=== PATIENT | female | born 1990 | race Caucasian/White ===

== ENCOUNTER 2018-04-16 08:45 | Outpatient (CLI) | payer OTHER, SELFPAY ==
[2018-04-16 09:02] LABS: HCT 29.9 % (36.0-46.0); HGB 9.6 g/dL (12.0-15.5); Mean Corp. HGB Concentration 32.1 g/dL (32.0-36.0); Mean Corpuscular Hemoglobin 27.8 pg (27.0-33.0); Mean Corpuscular Volume 86.7 fL (80-95); Platelet Count 240 x1000/uL (130-400); RBC 3.45 m/cumm (4.00-5.20); RBC Distribution Width 12.8 % (11.7-14.6); White Blood Cell Count 8.83 k/cumm (4.4-10.8)
[2018-04-16 09:09] LABS: Glucose,1 Hr (Glucola) 106 mg/dL (80-140)
== END 2018-04-16 08:46 ==
PROVIDERS: PCP Physician Assistant; Visit Provider Advanced Practice Midwife
DX: Z34.92 Encounter for supervision of normal pregnancy, unspecified, second trimester (principal); Z3A.28 28 weeks gestation of pregnancy
CPT/HCPCS: 36415; 82950; 85027

== ENCOUNTER 2018-06-03 09:41 | Observation (INO) | payer OTHER, SELFPAY ==
[2018-06-03 10:13] LABS: HCT 29.3 % (36.0-46.0); HGB 9.4 g/dL (12.0-15.5); Mean Corp. HGB Concentration 32.1 g/dL (32.0-36.0); Mean Corpuscular Hemoglobin 26.9 pg (27.0-33.0); Mean Corpuscular Volume 83.7 fL (80-95); Mean Platelet Volume 9.8 fL (8.0-11.0); Platelet Count 217 x1000/uL (130-400); RBC Distribution Width 15.2 % (11.7-14.6); White Blood Cell Count 9.48 k/cumm (4.4-10.8)
[2018-06-03 10:18] LABS: Anion Gap 9.1 mmol/L (3-11); CO2 23.9 mmol/L (21.0-32.0); Chloride 105 mmol/L (98-107); Potassium 3.5 mmol/L (3.5-5.1); Sodium 138 mmol/L (136-145)
[2018-06-03 10:20] LABS: Glucose 71 mg/dL (70-100)
== END 2018-06-03 12:30 | disposition home or self-care (01) ==
PROVIDERS: Admitting Provider Advanced Practice Midwife; PCP Physician Assistant; Visit Provider Advanced Practice Midwife
DX: O26.893 Other specified pregnancy related conditions, third trimester (principal); R42 Dizziness and giddiness; O99.013 Anemia complicating pregnancy, third trimester; D64.9 Anemia, unspecified; Z3A.35 35 weeks gestation of pregnancy
CPT/HCPCS: 59025; 36415; 80051; 82947; 85027; G0378

== ENCOUNTER 2018-06-10 12:36 | Outpatient (REF) | payer OTHER, SELFPAY | END 2018-06-10 12:56 | LOC: LBN 12:36 | PROVIDERS: PCP Physician Assistant; Visit Provider Advanced Practice Midwife | DX: Z34.93 Encounter for supervision of normal pregnancy, unspecified, third trimester (principal); Z36.85 Encounter for antenatal screening for Streptococcus B | CPT/HCPCS: 87081 ==

== ENCOUNTER 2018-06-17 01:20 | Outpatient (CLI) | payer OTHER, SELFPAY ==
[2018-06-17 08:25] LABS: HCT 31.6 % (36.0-46.0)
== END 2018-06-17 01:40 ==
PROVIDERS: PCP Physician Assistant; Visit Provider Advanced Practice Midwife
DX: O99.013 Anemia complicating pregnancy, third trimester (principal)
CPT/HCPCS: 36415; 85014; 85018

== ENCOUNTER 2018-06-22 01:20 | Outpatient (CLI) | payer OTHER, SELFPAY ==
--- NOTE | 2018-06-22 08:42 | DI.US_ITS ---
Many abnormalities cannot be diagnosed. A normal exam does not exclude a congenital anomaly. Radiology No. LMP: Exam Date: 06/22/18 [facility] wks days on EDC ([facility]) 07/08/18 Confirmed: HISTORY: Z34.90, TESS, WT, CHECK GROWTH ---- PREDICTED GESTATIONAL AGE NUMBER 37.3 weeks with a range of 36.3 week to 38.3 weeks. 1 Determined by__[id number]___LMP___HISTORY Info. pertaining to fetus # PLACENTA PRESENTATION Grade II Cephalic_X__ Anterior__X_Posterior___ Breech____ Right Left Transverse(head right___ Fundal___Low-lying___Previa___ Transverse(head left___ Varying BIOMETRY AMNIOTIC FLUID BPD: 97 mm 39.4 weeks HC: 350 mm 40.4 weeks MILD Polyhydramnios AC: 341 mm 38 weeks FL: 74 mm 37.5 weeks AMNIOTIC FLUID INDEX >26 WK CRL: mm weeks Cisterna Magna: mm CI: 0.82 RUQ:__8.53____LUQ____5.71____ Cerebellum: cm EFW: 3491 grams 78th Percentile RLQ:__7.33____LLQ___5.32____ Total:___26.9 cms Composite AGE= 39 wks EDC by US___06/29/18 BIOPHYSICAL PROFILE ANATOMY IDENTIFIED SCORE 0/2 Heart: 4-Chamber__X_Rate:BPM__144___ LVOT: RVOT: Amniotic Fluid(>2cms)____ Stomach:___X____ Kidneys: Respirations (>30 secs) Bladder: X___ Post. Fossa: Body Flex/Extension 3 vessel cord:__X Ventricles: cord insertion: Lips:____ Extremity Flex/Extension spinal morphology: Nose: Total Score= Palate: NS=not seen OB ultrasound was performed utilizing limited third trimester protocol. A single intrauterine gestation again noted, biometry is consistent with a gestational age of 39 weeks with EDC of 06/29/18. Estimated weight is 3491 grams which is at the 78th percentile for predicted gestational age. Placenta is anterior with no placenta previa. Fetus is in cephalic presentation. There is visually mild polyhydramnios with an TESS of 26.9. cardiac activity is observed at a rate of 144 BPM.
== END 2018-06-22 01:40 ==
PROVIDERS: PCP Physician Assistant; Visit Provider Advanced Practice Midwife
DX: Z34.93 Encounter for supervision of normal pregnancy, unspecified, third trimester (principal); Z36.89 Encounter for other specified antenatal screening
CPT/HCPCS: 76816

== ENCOUNTER 2018-07-19 16:45 | Inpatient (IN) | payer OTHER, SELFPAY ==
[2018-07-19 17:32] LABS: HCT 33.2 % (36.0-46.0); HGB 10.9 g/dL (12.0-15.5); Mean Corp. HGB Concentration 32.8 g/dL (32.0-36.0); Mean Corpuscular Hemoglobin 27.6 pg (27.0-33.0); Mean Corpuscular Volume 84.1 fL (80-95); Mean Platelet Volume 10.6 fL (8.0-11.0); Platelet Count 232 x1000/uL (130-400); RBC 3.95 m/cumm (4.00-5.20); RBC Distribution Width 18.9 % (11.7-14.6); White Blood Cell Count 11.05 k/cumm (4.4-10.8)
[2018-07-19] MEDS: Zolpidem 5 MG TAB 10 MG PO (22:01)
[2018-07-20] MEDS: Normal Saline Flush 10 ML SYR IVP (06:44)
[2018-07-20] MEDS: Lactated Ringers 1,000 ML 125 ML IV ×2 (06:46→15:14)
[2018-07-20] MEDS: Hamamelis Leaf/Glycerin 100 EACH BOX PR (23:28)
[2018-07-21] MEDS: Ibuprofen 600 MG TAB PO ×4 (01:05→22:41)
[2018-07-21] MEDS: Acetaminophen 325 MG TAB 650 MG PO ×4 (03:43→22:41)
[2018-07-21] MEDS: Normal Saline Flush 10 ML SYR IVP (04:14)
[2018-07-21 07:15] LABS: HCT 24.7 % (36.0-46.0); HGB 7.9 g/dL (12.0-15.5); Mean Corpuscular Hemoglobin 27.3 pg (27.0-33.0); Mean Corpuscular Volume 85.5 fL (80-95); Mean Platelet Volume 10.5 fL (8.0-11.0); Platelet Count 190 x1000/uL (130-400); RBC 2.89 m/cumm (4.00-5.20); RBC Distribution Width 18.7 % (11.7-14.6); White Blood Cell Count 15.05 k/cumm (4.4-10.8)
[2018-07-21] MEDS: Ferrous Sulfate 325 MG TAB PO ×2 (10:36→20:25)
[2018-07-21] MEDS: Docusate Sodium 100 MG CAP PO (20:25)
[2018-07-22] MEDS: Acetaminophen 325 MG TAB 650 MG PO (08:10)
[2018-07-22] MEDS: Ferrous Sulfate 325 MG TAB PO (08:10)
[2018-07-22] MEDS: Ibuprofen 600 MG TAB PO (08:10)
[2018-07-22] MEDS: Hamamelis Leaf/Glycerin 100 EACH BOX PR (08:59)
== END 2018-07-22 11:50 | disposition home or self-care (01) | DRG 807 ==
PROVIDERS: Admitting Provider Nurse Practitioner; PCP Physician Assistant; Visit Provider Advanced Practice Midwife
DX: O48.0 Post-term pregnancy (principal); Z37.0 Single live birth; Z3A.41 41 weeks gestation of pregnancy; O70.1 Second degree perineal laceration during delivery; O66.0 Obstructed labor due to shoulder dystocia; O90.81 Anemia of the puerperium; D64.9 Anemia, unspecified; O99.344 Other mental disorders complicating childbirth; F41.8 Other specified anxiety disorders
CPT/HCPCS: 36415; 85027; 86850; 86900; 86901; 59025; J3490

== ENCOUNTER 2018-08-22 15:58 | Emergency (ER) | payer OTHER, SELFPAY ==
[2018-08-22 16:03] VITALS: BP 119/71; PULSE 81; RESP 18; TEMP 37.3; O2SAT 98
--- NOTE | 2018-08-22 16:42 | ED.GENADUL_ITS ---
Discharge Plan Disposition Patient Disposition: HOME Condition: Good Discharge Details Chief Complaint: Cellulitis Clinical Impression: Mastitis Primary Care Provider: David Contreras ED Provider: David Duncan Home Meds and New Rx's Prescriptions: New cephalexin 500 mg tablet 500 mg PO QID 10 Days Qty: 40 RF: 0 No Action PNV cmb#95-ferrous fumarate-FA [] 1 EACH tablet 1 ea PO DAILY RF: 0 hydroxyzine pamoate [Vistaril] 50 MG capsule 50 mg PO Q6H PRN PRNQty: 30 RF: 1 compression panty, 1x-2x [Post Op Panty 1X-2X] 1 EACH misc Miscellaneous DAILY Qty: 1 RF: 0 ferrous sulfate 325 MG tablet 325 mg PO BID Qty: 90 RF: 0 Discharge Instructions Instructions: Mastitis (ED) Additional Instructions: Please take the medication as directed. Please take Tylenol for pain. Please use warm compresses as often as possible for improvement of your symptoms. Please continue to breast feed and pump vigorously. If you notice any worsening of your symptoms, or any new symptoms such as vomiting, diarrhea, fever, chills, shortness of breath, chest pain, numbness, weakness, or fainting , please return immediately to the emergency department for reevaluation. Please follow up with your primary care provider as soon as possible for reassessment and reevaluation. As always, it was a pleasure participating in your medical care today. Referrals: David Contreras PA [Primary Care Provider] - Medical Decision Making This is a very pleasant 28-year-old female who presents with signs and symptoms consistent with clinical mastitis. No evidence of abscess was noted on bedside ultrasound exam. Patient's vital signs are stable with no evidence of fever, tachycardia, or other significant abnormality. We will encourage warm compresses, Tylenol for pain, as well as Keflex for antibiotic therapy. She will be given 2 doses, one to take now, and 1 to take in the morning before pharmacies open up. She will be given a prescription for home use. We discussed red flags which to return, the importance of continued pumping, the importance of close follow-up with her PCP I have extensively reviewed the treatment plan and discharge instructions with the patient. I have addressed all patient concerns at this time. The patient was made aware of what symptoms to monitor for that would warrant a return to the emergency department. Discussed the plan with the patient, they demonstrate verbal understanding and agreement with our assessment and plan at this time. HPI General Date/Time Provider Initiated Documentation: 08/22/18 16:37 . HPI Narrative: This is a pleasant 28-year-old female who presents for right-sided breast pain. She is currently breast-feeding her child, and noticed yesterday that she had mild fever, chills, redness pain and tenderness on the lateral aspect of her right breast. She has been using warm compresses and massaging it pumping frequently however the redness persisted, so she came to the ER for further evaluation. She has been taking Tylenol at home which has been resolving the fever and notably improving the pain. Patient denies any discharge from the nipple, any change in her milk color, or any other symptoms of chest pain shortness of breath numbness tingling or weakness. She has no other complaints or modifying factors at this time. Related Data Home Medications Medication Instructions Recorded Confirmed PNV cmb#95-ferrous fumarate-FA 1 ea PO DAILY 11/20/17 07/19/18 [Prenavite] hydroxyzine pamoate [Vistaril] 50 mg PO Q6H PRN PRN #30 tab-cap 01/19/18 07/19/18 compression panty, 1x-2x [Post Op #1 03/31/18 07/19/18 Panty] ferrous sulfate 325 mg PO BID #90 tab 04/16/18 08/22/18 cephalexin 500 mg PO QID 10 Days #40 tab 08/22/18 Previous Rx's Medication Instructions Recorded ferrous sulfate 325 mg PO BID #90 tab 04/16/18 cephalexin 500 mg PO QID 10 Days #40 tab 08/22/18 Allergies Allergy/AdvReac Type Severity Reaction Status Date / Time No Known Allergies Allergy Verified 08/22/18 16:07 General Stated Complaint: Cellulitis RAMY: 4 Review of Systems Review of Systems All systems reviewed & are unremarkable except as noted in HPI and below PFSH Medical History Migraine headache without aura (Chronic) Temporal mandibular joint disorder (Chronic) (normal spontaneous vaginal delivery) (Resolved) Surgical History [place] teeth extractions tmj arthroscopy Family History Maternal Aunt Multiple sclerosis Other Diabetes Heart disease Myocardial infarction Osteoporosis Personal history of malignant neoplasm Social History adopted: No foster care: No household members: spouse and children number of children: 1 current occupational status: employed 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[employer] Smoking/Tobacco Use Status: Former Tobacco Use quit date: 09/08/13 alcohol intake: never substance use type: does not use History History 2 Para 1 Hx # Term Pregnancies 1 Multiple births 0 Hx # Pregnancies 0 Ectopic pregnancies 0 AB induced 0 Hx Number of Living Children 1 AB spontaneous 0 Exam Narrative Exam Narrative: 1.Const: Well-nourished, Well-developed, appearing stated age 2.Eyes: PERRL, no conjunctival injection, and symmetrical lids. 3.ENT: Atraumatic external nose and ears. Moist MM. Neck: Symmetric, trachea midline, No thyromegaly. 4.CVS: +S1/S2, No murmurs or gallops. Peripheral pulses 2+ and equal in all extremities. Brisk capillary refill in all extremities. 5.RESP: Unlabored respiratory effort. Clear to auscultation bilaterally. No wheezes rales or rhonchi 6.GI: Soft, Nontender/Nondistended, No hepatosplenomegaly. No guarding or rebound. 7.MSK: Normocephalic/Atraumatic, Extremities w/o deformity or ttp No cyanosis or clubbing, Normal movement of all extremities 8.Skin: Physical exam was performed with female nurse Cris at bedside. Physical exam demonstrates symmetric breasts, however there is mild redness on the right breast on the lateral aspect extending to the axilla. This is very minimal. No clear line of demarcation. Mild firmness beneath, however bedside ultrasound demonstrates no evidence of fluctuance or abscess. The nipple is not retracted, no discharge. No other significant abnormalities. Pain is minimal. Signs and symptoms are clinically consistent with mastitis. 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 Sensation grossly intact, no focal neurologic deficits. 10.Psych: (AAO) x3. Appropriate mood and affect Course Vital Signs Temperature 37.3 C 08/22/18 16:03 Pulse 81 08/22/18 16:03 Respiratory Rate 18 08/22/18 16:03 Blood Pressure 119/71 08/22/18 16:03 Pulse Oximetry 98 08/22/18 16:03 Temperature 37.3 C 08/22/18 16:03 Temperature Source Oral 08/22/18 16:03 Pulse 81 12/15/18 16:03 Respiratory Rate 18 08/22/18 16:03 Respiratory Effort Non-Labored 08/22/18 16:06 Blood Pressure 119/71 08/22/18 16:03 Blood Pressure Position Sitting 08/22/18 16:03 Pulse Oximetry 98 08/22/18 16:03 Oxygen Delivery Method Room Air 08/22/18 16:03 Oxygen Flow Rate 0 08/22/18 16:03 Pain Level 5 08/22/18 16:03
[2018-08-22] MEDS: Cephalexin 500 MG CAP PO ×2 (16:43)
== END 2018-08-22 16:47 | disposition home or self-care (01) ==
LOC: ER 17:00
PROVIDERS: Emergency Provider Student in an Organized Health Care Education/Training Program; PCP Physician Assistant
DX: O91.23 Nonpurulent mastitis associated with lactation (principal)
CPT/HCPCS: 99283

== ENCOUNTER 2018-12-23 09:16 | Outpatient (REF) | payer OTHER, SELFPAY ==
--- NOTE | 2018-12-23 08:50 | PAPFT_PTH ---
PATIENT: Sujata García LOC: [facility] U#:[id number] AGE/SX: 28/F ROOM: RE12/23/[address]: Ani Bell MD : 1990 BED: DIS: 12/23/2018 SPEC #: [id number] RECD: 12/24/18 12:48 STATUS: HEIKE REBolivar #: [id number] MICHELLE: 12/23/18 08:[address]: Ani Bell DEPT: [facility] Cytology RECD BY: Starla Vela ENTERED: 12/24/18 12:49 SP TYPE: PAPFT OTHR DR: David Contreras Tissues: 1 - CX/ENDOCX FOR PAP SMEARS Procedures: PAP THIN PREP/UVM Screening Comments: [id number]
[2018-12-24 15:23] LABS: Chlamydia Result Negative; GC Result Negative; Specimen Description CERVIX
== END 2018-12-23 09:36 ==
LOC: LBN 09:16
PROVIDERS: PCP Physician Assistant; Visit Provider Obstetrics & Gynecology
DX: N93.0 Postcoital and contact bleeding (principal); Z11.3 Encounter for screening for infections with a predominantly sexual mode of transmission; Z12.4 Encounter for screening for malignant neoplasm of cervix
CPT/HCPCS: 87491; 87591; 88142

== ENCOUNTER 2019-03-04 09:28 | Outpatient (REF) | payer OTHER, SELFPAY ==
--- NOTE | 2019-03-04 08:40 | ENDO_PTH ---
PATIENT: Sujata García LOC: [facility] U#:[id number] AGE/SX: 28/F ROOM: RE03/04/[address]: Tyrone Be MD : 1990 BED: DIS: 03/04/2019 SPEC #: [id number] RECD: 03/04/19 12:50 STATUS: HEIKE REBolivar #: [id number] MICHELLE: 03/04/19 08:[address]: Tyrone Be DEPT: Surgical Specimen RECD BY: Starla Vela ENTERED: 03/04/19 12:50 SP TYPE: Endo OTHR DR: David Contreras Tissues: 1 - ENDOCERVICAL BX/CURRETTE Procedures: GROSS AND MICRO LEVEL 4 Comments: [id number]
== END 2019-03-04 09:48 ==
LOC: LBN 09:28
PROVIDERS: PCP Physician Assistant; Visit Provider Obstetrics & Gynecology
DX: N72 Inflammatory disease of cervix uteri (principal); N88.8 Other specified noninflammatory disorders of cervix uteri
CPT/HCPCS: 88305

== ENCOUNTER 2019-06-08 11:18 | Outpatient (CLI) | payer OTHER, SELFPAY ==
[2019-06-08 14:07] LABS: FREE T4 0.87 ng/dL (0.76-1.46); TSH 1.03 uIU/mL (0.36-3.74)
[2019-06-08 14:24] LABS: Calculated LDL 61 mg/dL; Cholesterol 131 mg/dL (50-200); HDL Cholesterol 56 mg/dL (40-60); Triglyceride 73 mg/dL (30-150)
[2019-06-08 22:41] LABS: T3, Total 110 ng/dl (97-169)
[2019-06-10 06:59] LABS: Vitamin D 25 Total 19.5 ng/ml (30-100)
== END 2019-06-08 11:38 ==
PROVIDERS: PCP Physician Assistant; Visit Provider Physician Assistant
DX: E55.9 Vitamin D deficiency, unspecified (principal); R63.6 Underweight; F41.8 Other specified anxiety disorders; Z13.220 Encounter for screening for lipoid disorders
CPT/HCPCS: 36415; 80061; 82306; 84439; 84443; 84480

== ENCOUNTER 2019-07-19 01:13 | Outpatient (CLI) | payer OTHER, SELFPAY ==
--- NOTE | 2019-07-19 14:00 | DI.US_ITS ---
EXAM: [facility] MAMMO DIAGNOSTIC BI and right breast ultrasound CLINICAL HISTORY: R breast mass at 10 c'clock 4x3cm, painful, N63.10 ,z87.2, personal h/o disease o f skin and subcutaneous tissue. COMPARISON: Priors for comparison. TECHNIQUE: Full Field digital Mammography views with Computer Aided Diagnosis followed by Breast To mosynthesis and right breast ultrasound. FINDINGS: Mammogram: Masses/Architectural Distortion: None seen. Microcalcifications: No suspicious pleomorphic-type are seen. Skin Thickening/Nipple Retraction: None. Right breast ultrasound: No suspicious cystic or solid masses are seen sonographically. IMPRESSION: 1. No significant interval change with no specific features of malignancy noted. 2. Unless there is more urgent need, screening mammography of the breast is recommended according to ACR guidelines. BI-RADS Cat 1 - Negative Breast Density - Category D - Extremely dense The findings were discussed with the patient on the date of the examination. A negative radiographic report should not delay biopsy if a dominant or clinically suspicious mass is present. Up to ten percent of cancers are not identified on mammography. A negative report may reinforce clinical impression. Adenosis and dense breasts may obscure an underlying neoplasm. False positive reports average 6 to 10%. Patient will receive a letter notifying them of these results.
--- NOTE | 2019-07-19 15:00 | DI.MAMMO_ITS ---
EXAM: MG MAMMO DIAGNOSTIC BI and right breast ultrasound CLINICAL HISTORY: R breast mass at 10 c'clock 4x3cm, painful, N63.10, Z87.2, personal h/o disease o f skin and subcutaneous tissue. COMPARISON: Priors for comparison. TECHNIQUE: Full Field digital Mammography views with Computer Aided Diagnosis followed by Breast T omosynthesis and right breast ultrasound. FINDINGS: Mammogram: Masses/Architectural Distortion: None seen. Microcalcifications: No suspicious pleomorphic-type are seen. Skin Thickening/Nipple Retraction: None. Right breast ultrasound: No suspicious cystic or solid masses are seen sonographically. Impression: 1. No significant interval change with no specific features of malignancy noted. 2. Unless there is more urgent need, screening mammography of the breast is recommended according to ACR guidelines. BI-RADS Cat 1 - Negative Breast Density - Category D - Extremely dense The findings were discussed with the patient on the date of the examination. A negative radiographic report should not delay biopsy if a dominant or clinically suspicious mass is present. Up to ten percent of cancers are not identified on mammography. A negative report may reinforce clinical impression. Adenosis and dense breasts may obscure an underlying neoplasm. False positive reports average 6 to 10%. Patient will receive a letter notifying them of these results.
== END 2019-07-19 01:33 ==
PROVIDERS: PCP Physician Assistant; Visit Provider Nurse Practitioner Women's Health
DX: N63.11 Unspecified lump in the right breast, upper outer quadrant (principal); N64.4 Mastodynia; Z87.2 Personal history of diseases of the skin and subcutaneous tissue
CPT/HCPCS: 76642; 77062; 77066; G0279

== ENCOUNTER 2021-10-01 09:45 | Outpatient (REF) | payer OTHER, SELFPAY ==
--- NOTE | 2021-10-01 09:00 | PAPFT_PTH ---
PATIENT: Sujata García LOC: [facility] U#:[id number] AGE/SX: 31/F ROOM: RE10/01/[address]: Naya Mason NP : 1990 BED: DIS: 10/01/2021 SPEC #: [id number] RECD: 10/01/21 12:47 STATUS: HEIKE [place] #: [id number] MICHELLE: 10/01/21 09:[address]: Naya Mason NP DEPT: [facility] Cytology RECD BY: Starla Vela ENTERED: 10/01/21 12:47 SP TYPE: PAPFT OTHR DR: David Contreras Tissues: 1 - CX/ENDOCX FOR PAP SMEARS Procedures: PAP THIN PREP/UVM Screening HPV DNA PROBE Comments: [id number]
== END 2021-10-01 09:46 | disposition home or self-care (01) ==
LOC: LBN 09:45
PROVIDERS: PCP Physician Assistant; Visit Provider Nurse Practitioner Women's Health
DX: Z12.4 Encounter for screening for malignant neoplasm of cervix (principal); Z11.51 Encounter for screening for human papillomavirus (HPV)
CPT/HCPCS: 88142; 87624

== ENCOUNTER 2021-12-24 02:33 | Outpatient (CLI) | payer OTHER, SELFPAY ==
[2021-12-24 12:10] LABS: Source Nasal/Nares
[2021-12-24 15:36] LABS: COVID-19 PCR Negative (Negative)
== END 2021-12-24 02:34 | disposition home or self-care (01) ==
PROVIDERS: PCP Family Medicine; Visit Provider Physician Assistant
DX: Z20.822 Contact with and (suspected) exposure to COVID-19 (principal); Z01.818 Encounter for other preprocedural examination
CPT/HCPCS: 87635

== ENCOUNTER 2022-04-08 04:10 | Outpatient (CLI) | payer OTHER, SELFPAY ==
[2022-04-08 15:44] LABS: Vitamin D 25 Total 21.3 ng/mL (30-100)
== END 2022-04-08 04:11 | disposition home or self-care (01) ==
LOC: LBO 04:11
PROVIDERS: PCP Family Medicine; Visit Provider Family Medicine
DX: E55.9 Vitamin D deficiency, unspecified (principal)
CPT/HCPCS: 36415; 82306

== ENCOUNTER 2022-09-26 04:03 | Outpatient (CLI) | payer OTHER, SELFPAY ==
[2022-09-26 11:05] LABS: Panorama Kit Sent via Fed Ex
[2022-09-26 11:21] LABS: Abs Immature Grans 0.04 10^3/uL (0.0-0.06); Absolute Basophil Count 0.04 10^3/uL (0.0-0.2); Absolute Lymphocyte Count 0.95 10^3/uL (1.2-3.4); Absolute Monocyte Count 0.79 10^3/uL (0.1-0.8); Absolute Neutrophil Count 7.55 10^3/uL (1.2-6.7); Basophils % 0.4; Eosinophils % 1.1; HCT 34.3 % (36.0-46.0); HGB 11.2 g/dL (11.2-15.7); Immature Grans % 0.4; MCHC 32.7 % (32.0-36.0); MCV 95 fL (80-95); MPV 10.3 fL (8.0-11.0); Monocytes % 8.3; Neutrophils % 79.8; Platelet Count 248 10^3/uL (130-400); RBC 3.61 10^6/uL (3.93-5.22); RDW-SD 45.7 fL; WBC 9.47 10^3/uL (4.4-10.8)
[2022-09-26 11:29] LABS: Glucose,1 Hr (Glucola) 76 mg/dL (80-140)
[2022-09-27 09:05] LABS: Hepatitis B Surface Ag Negative (Negative)
[2022-09-27 09:50] LABS: HIV-1/2 Ag & Ab Screen Negative (Negative)
[2022-09-27 10:00] LABS: Hepatitis C Ab w Rflx HCV PCR Negative (Negative)
[2022-09-27 10:21] LABS: Rubella IgG Ab (UVM) Negative (See Note); Varicella IgG Antibody Positive (See Note)
[2022-09-29 14:53] LABS: Syphilis IgG w/Reflex Nonreactive (Nonreactive)
[2022-09-30 23:38] LABS: Specimen WB Whole Blood
== END 2022-09-26 04:04 | disposition home or self-care (01) ==
LOC: LBO 04:03
PROVIDERS: PCP Family Medicine; Visit Provider Advanced Practice Midwife
DX: Z34.91 Encounter for supervision of normal pregnancy, unspecified, first trimester (principal); Z3A.11 11 weeks gestation of pregnancy; Z36.89 Encounter for other specified antenatal screening
CPT/HCPCS: 36415; 81329; 82950; 86787; 86803; 86850; 86900; 86901; 87340; 87389; 85025; 86762; 86780

== ENCOUNTER 2022-09-26 13:11 | Outpatient (REF) | payer OTHER, SELFPAY ==
[2022-09-26 14:15] LABS: *AMPHETAMINES SCREEN URINE Negative (Negative); *BARBITURATES SCREEN URINE Negative (Negative); *BENZODIAZEPINES SCREEN URINE Negative (Negative); Cannabinoids THC Negative (Negative); Cocaine Screen,Urine Negative (Negative); METHADONE URINE SCREEN Negative (Negative); OPIATES URINE SCREEN Negative (Negative); Tricyclic Antidepressants Negative (Negative)
[2022-09-27 14:04] LABS: Chlamydia Result Negative (Negative); GC Result Negative (Negative)
[2022-10-04 11:57] LABS: Buprenorphine Negative ng/mL (Cutoff: 5.0); Norbuprenorphine Negative ng/mL (Cutoff: 2.5)
== END 2022-09-26 13:12 | disposition home or self-care (01) ==
LOC: LBN 13:11
PROVIDERS: PCP Family Medicine; Visit Provider Advanced Practice Midwife
DX: Z34.91 Encounter for supervision of normal pregnancy, unspecified, first trimester (principal); Z3A.11 11 weeks gestation of pregnancy
CPT/HCPCS: 80307; 80348; 87491; 87591; 87086

== ENCOUNTER 2023-01-17 01:20 | Outpatient (CLI) | payer OTHER, SELFPAY ==
[2023-01-17 09:29] LABS: Abs Immature Grans 0.06 10^3/uL (0.0-0.06); Absolute Basophil Count 0.06 10^3/uL (0.0-0.2); Absolute Eosinophil Count 0.12 10^3/uL (0.0-0.7); Absolute Lymphocyte Count 0.95 10^3/uL (1.2-3.4); Absolute Monocyte Count 0.75 10^3/uL (0.1-0.8); Absolute Neutrophil Count 6.87 10^3/uL (1.2-6.7); Basophils % 0.7; Eosinophils % 1.4; HGB 10.1 g/dL (11.2-15.7); Immature Grans % 0.7; Lymphocytes % 10.8; MCH 29.4 pg (27.0-33.0); MCHC 32.6 % (32.0-36.0); MCV 90 fL (80-95); MPV 9.6 fL (8.0-11.0); Monocytes % 8.5; Neutrophils % 77.9; Platelet Count 238 10^3/uL (130-400); RBC 3.44 10^6/uL (3.93-5.22); RDW 12.6 % (11.7-14.6); RDW-SD 41.6 fL; WBC 8.81 10^3/uL (4.4-10.8)
[2023-01-17 09:53] LABS: Glucose,1 Hr (Glucola) 66 mg/dL (80-140)
== END 2023-01-17 01:21 | disposition home or self-care (01) ==
LOC: LBO 01:21
PROVIDERS: PCP Family Medicine; Visit Provider Obstetrics & Gynecology
DX: Z34.92 Encounter for supervision of normal pregnancy, unspecified, second trimester (principal); Z3A.27 27 weeks gestation of pregnancy
CPT/HCPCS: 36415; 82950; 85025

== ENCOUNTER 2023-03-03 02:31 | Outpatient (CLI) | payer OTHER, SELFPAY ==
--- NOTE | 2023-03-03 06:45 | DI.US_ITS ---
Exam(s) US OB TESS WEIGHT EXAM: US OB TESS WEIGHT CLINICAL HISTORY: macrosomia,H/O SHOULDER DYSTOCIA PREVIOUSLY,z87.59. TECHNIQUE: Transabdominal obstetrical ultrasound performed. COMPARISON: US US OB 2-3 TRIMESTER from 11/19/2022 FINDINGS: Number of fetuses: 1 position: CEPHALIC Placental location: There is a grade 1 posterior placenta. No evidence of previa. BIOMETRIC DATA: BPD: 8.48cm, 34weeks 1day HC: 31.22cm, 35weeks AC: 31.56cm, 35weeks 3days FL: 6.5cm, 33weeks 4days EFW: 2,511.68g, 5lb 9.75oz, 67.2% Composite Age: 34weeks 4days MACARIO: 04/10/2023 Heart Rate: 133bpm Amniotic fluid index: 14.05cm. Visually, amount of fluid is within normal limits. IMPRESSION: 1. Single live intrauterine gestation as above. 2. Estimated weight is 2512gms. This is the 67th percentile. 3. Amniotic fluid index is 14.1 cm. Visually within normal limits. DATA REPOSITORY:
== END 2023-03-03 02:51 ==
LOC: DI 02:31
PROVIDERS: PCP Family Medicine; Visit Provider Obstetrics & Gynecology
DX: O09.293 Supervision of pregnancy with other poor reproductive or obstetric history, third trimester (principal); Z87.59 Personal history of other complications of pregnancy, childbirth and the puerperium
CPT/HCPCS: 76816

== ENCOUNTER 2023-03-19 12:16 | Outpatient (REF) | payer OTHER, SELFPAY ==
[2023-03-19 14:10] LABS: *AMPHETAMINES SCREEN URINE Negative (Negative); *BARBITURATES SCREEN URINE Negative (Negative); *BENZODIAZEPINES SCREEN URINE Negative (Negative); Cannabinoids THC Negative (Negative); Cocaine Screen,Urine Negative (Negative); METHADONE URINE SCREEN Negative (Negative); OPIATES URINE SCREEN Negative (Negative)
[2023-03-19 14:16] LABS: Tricyclic Antidepressants Negative (Negative)
[2023-03-25 13:22] LABS: Buprenorphine Negative ng/mL (Cutoff: 5.0); Norbuprenorphine Negative ng/mL (Cutoff: 2.5)
== END 2023-03-19 12:17 | disposition home or self-care (01) ==
LOC: LBN 12:16
PROVIDERS: PCP Family Medicine; Visit Provider Obstetrics & Gynecology
DX: Z34.93 Encounter for supervision of normal pregnancy, unspecified, third trimester (principal); Z36.85 Encounter for antenatal screening for Streptococcus B; Z3A.36 36 weeks gestation of pregnancy
CPT/HCPCS: 80307; 80348; 87081

== ENCOUNTER 2023-04-07 07:22 | Inpatient (IN) | payer OTHER, SELFPAY ==
[2023-04-07] VITALS (41 sets, daily range): BP systolic 102–133; BP diastolic 54–69; PULSE 56–78; RESP 16–19; TEMP 36.1–36.9; O2SAT 99–100; BMI 24.5
--- NOTE | 2023-04-07 08:00 | W.PM.OBHPL1 ---
Date of service: 04/07/23 Time of Service: 08:01 Assessment and Plan Assessment and plan (1) : Status: Acute (2) Hx of macrosomia in infant in prior , currently : Status: Acute (3) History of shoulder dystocia in prior : Status: Acute OB-HPI Labor/Delivery History of Present Illness Reason for Visit: Induction of Labor Chief Complaint: Scheduled Induction of Labor Indication for Induction: Other (History of hemorrhage and macrosomia). MACARIO Calculator Estimated Delivery Date Method Current WG Current Estimate 04/13/23 LMP (Certain) 39w 1d Other Estimates 04/13/23 Ultrasound #1 39w 1d History of Present Expected Delivery Route/Plan - MD FOB/ - Willam García (3rd child together) BG Rubella non immune, offer MMR PP Pt accepts plan for IOL @ 39 wks (book for April 07) Specific Issues/Plan 1. History of macrosomia x2: 11'4 and 10'. - Early 1 hour GTT 76, 28wk: 66 2. History of post hemorrhage - second without transfusion. 3. Hx shoulder dystocia x2, plan for IOL at 39 wks 4. Social anxiety - citalopram 20 mg qd 5. SMA & CF carrier neg, panorama - WNL female, declines AFP 6. Anemic: 36wk Hb 9.9 - Iron supplementation Assessment: History Reviewed & Current Narrative: 32-year-old G3, P2 female who [facility]. Total of 11 visits. Total weight gain 36 pounds. First pressure blood pressure 94/58, third-trimester blood pressure 128/56. Patient has consented to induction of labor for history of macrosomic infants and hemorrhage. Informed Consent Informed Consent: Induction of Labor Review of Systems Narrative: Occasional contractions otherwise no evidence of rupture membranes. Patient feels excellent movement. All systems reviewed & are unremarkable except as noted in HPI and below Musculoskeletal Musculoskeletal: Reports system reviewed and no additional complaints, except as documented PFSH All Active Problems (Updated 02/17/23 @ 10:55 by Deana Langford MD) Social anxiety disorder (Acute 05/22/16) Managed with citalopram; prior trial of sertraline. Vitamin D deficiency (Acute) (Acute) Rubella non-immune status, antepartum (Acute) Hx of macrosomia in infant in prior , currently (Acute) History of shoulder dystocia in prior (Acute) Medical History (Updated 02/17/23 @ 10:55 by Deana Langford MD) Fibrocystic breast changes of both breasts Managed by [facility]; no h/o biopsy Migraine headache without aura Infrequent now since Tx for her TMJ . Nevus, atypical s/p skin biopsy. 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 Sx improved. Surgical History tmj arthroscopy 03/2016 [facility] [place]. [place] teeth extractions 2006 Family History (Updated 09/26/22 @ 10:03 by Liana Mata CNM) Maternal Aunt Multiple sclerosis Paternal Aunt Breast cancer 30s Mother Fibrocystic breast changes of both breasts Maternal Grandmother Osteoporosis Breast cancer Father Hyperlipidemia Brother No problems noted. Brother No problems noted. Brother No problems noted. Son No problems noted. Daughter No problems noted. Paternal Grandfather Heart disease Other Diabetes Myocardial infarction Personal history of malignant neoplasm Social History Smoking/Tobacco Use Status: Former Tobacco Use Quit Date: 09/08/13 Tobacco: How many years used: 12 Quit status: has quit before Second Hand Exposure: Yes Counseling given: provider counseling and support medications Smoking risk assessment performed?: Yes Alcohol Intake: current Alcohol Intake frequency: a few times a month Alcohol type: beer Drug use: Never Substance use type: does not use Adopted: No Caregiver/Support person: No Foster care: No Household members: spouse, family and children Housing: house Number of Children: 2 Communication Needs: None Education Level: college 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[employer]; RN Pets and animals: Yes Pets and animals: cat(s) and dog(s) Sexually active: Yes Do you think of yourself as: straight/heterosexual Current gender identity: female What is your relationship status?: How often do you attend judaism or congregational services?: 4 or more times per year Do you belong to any clubs or organized social groups?: no Panel score (0-1 are the most socially isolated patients): 2 What type of physical activity do you participate in: other Details: enjoys camping, hiking Tania/Nondenominational: Uatsdin Seatbelt use: always Helmet use: Yes Helmet use: always Drive intox or ride w/intox tour bus driver/guide: No Do you feel safe in your relationship?: Yes History History 3 Para 2 Hx # Term Pregnancies 2 Multiple births 0 Hx # Pregnancies 0 Ectopic pregnancies 0 AB induced 0 Hx Number of Living Children 2 AB spontaneous 0 Past Pregnancies Del. Date GA/Weeks # Preg Succ Route Wgt Sex Labor Lgth Anesthesia Location Prov Complic 01/06/15 41 No Yes vaginal 11 lb 4 oz Male Antoinette Gonzales'Dominguez 07/20/18 41 No Yes vaginal 10 lb 1 oz Female 5 hrs. 8 min. [facility] cnm induced Delivery Date: 01/06/15 Last Updated by: Jennifer Han IOL for post dates, episiotomy, mild shoulder dystocia, 3rd degree Delivery Date: 07/20/18 Last Updated by: Jennifer Han IOL for postdates, mild shoulder dystocia, PPH, no transfusion. Meds Allergies and Home Medications Allergies Allergy/AdvReac Type Severity Reaction Status Date / Time No Known Allergies Allergy Verified 03/31/23 15:40 Home Medications Medication Instructions Recorded Confirmed Type prenat.vits,dago,zbo-[id number]-[id number] 1 tab PO DAILY 03/19/22 03/31/23 History escitalopram oxalate 20 mg tablet 20 mg PO DAILY #90 tabs 04/10/22 03/31/23 Rx lorazepam 1 mg tablet (Ativan) 1 mg PO PRN anxiety #14 tabs 04/10/22 03/31/23 Rx triamcinolone acetonide 0.1 % 1 applic topical BID PRN Atopic 02/07/23 03/31/23 History topical cream Dermatitis Exam Physical Exam Vital signs: Pulse BP 75 119/57 L 04/07/23 07:34 04/07/23 07:34 Vital Signs Reviewed: Yes Constitutional Constitutional: no acute distress Detailed Labor and Delivery Exam Dilation: 1 Effacement (%): 25 station: -2 Position: OA Cervix position: mid Consistency: soft Carrillo Score: Cervical Points Exam 0 1 2 3 Dilation Closed 1-2cm 3-4 cm 5-6cm Effacement 0-30% 40-50% 60-70% 80% Consistency Firm Medium Soft Station -3 -2 -1,0 +1,+2 Position Posterior Mid Anterior CARRILLO Score(Cervical Ripeness Score): 4 Amniotic Membrane Status: Intact Contraction Frequency(min): Occasional Contraction Duration(sec): 50 seconds Contraction Intensity: Mild Fetus A Heart Rate Baseline: 140 Monitor Accelerations: 15 X 15 Monitor Decelerations: None Variability: Moderate (6-25 BPM) Presentation: Cephalic Categories: Category I Est. Weight: 8 lb HEENT Exam HEENT Exam: Normal Neck Exam Neck Exam: Normal Chest/Brest/Axilla Exam Chest Exam: Not Done Breast Exam Breast Exam: Not Done Respiratory Exam Respiratory Exam: Normal Cardiovascular Exam Cardiovascular Exam: Normal Abdominal Exam Abdominal Exam: Normal Rectal Exam Rectal Exam: Not Done Exam Exam: Normal Extremities Exam Extremities Exam: Normal Back/Spine/Pelvis Exam Back Exam: Normal Pelvis Adequate: Yes Neurological Exam Neurological Exam: Normal Psychiatric Exam Psychiatric Exam: Normal Results Results Group Beta Strep: Negative Risk Assessment Risk for Shoulder Dystocia Historical/Initial OB: POSITIVE FOR: Previous Shoulder Dystocia (Mild) and Previous Macrosomia (11.14 lbs 3rd degree laceration w/o s/d); NEGATIVE FOR: Pelvic Abnormality or Pre- BMI>30 36 Weeks: NEGATIVE FOR: Current Gestational DM, EFW>4500gms or Maternal Weight Gain>40lbs Increased Risk?: Yes Counseling: Decision made to proceed with induction of labor secondary to risk factors for shoulder dystocia and hemorrhage Date/Initial: 04/07/2023 [facility] Risk for Pre-Eclampsia Daily Dose ASA Indicated: No Yes, if one or more: NEGATIVE FOR: Hx Pre-E/Gest HTN, Chronic HTN, Multiple Gestation, Pre-gestational DM, Renal Disease, Systemic Lupus or APA Syndrome Yes, if 2 or more: NEGATIVE FOR: Nulliparity, Age>= 35 yrs, >10yr btwn pregnancies, BMI>30, ethinicty, Mother/Sister w/ Pre-E or Previous IUGR Risk for Post- Hemorrhage Initial: POSITIVE FOR: Previous PPH; NEGATIVE FOR: Multiple Gestation, Known Clotting Deficiency, Grand Multiparity or Anticoagulation 40 Weeks: POSITIVE FOR: Anemia, hgb<10 (03/19/2023 hemoglobin 9.9) At Risk?: Yes Counseled re: Active Management: Yes Risks Reviewed Risks Reviewed Upon Admission: Yes
[2023-04-07 08:27] LABS: HCT 31.7 % (36.0-46.0); HGB 10.2 g/dL (11.2-15.7); MCH 27.3 pg (27.0-33.0); MCHC 32.2 % (32.0-36.0); MCV 85 fL (80-95); MPV 10.7 fL (8.0-11.0); Platelet Count 219 10^3/uL (130-400); RBC 3.74 10^6/uL (3.93-5.22); RDW 15.4 % (11.7-14.6); RDW-SD 47.3 fL; WBC 8.19 10^3/uL (4.4-10.8)
[2023-04-07] MEDS: Oxytocin/Normal Saline 30 UNIT/500 ML BAG 2 UNITS IV (08:49)
[2023-04-07] MEDS: Lactated Ringers 1,000 ML 125 ML IV ×2 (08:49→16:18)
--- NOTE | 2023-04-07 08:52 | W.ANESPRE ---
General Info Date of Service Date Performed: 04/07/23 Height: 5 ft 9 in Weight: 75.296 kg Body Mass Index (BMI): 24.5 Meds Allergies and Home Medications Allergies Allergy/AdvReac Type Severity Reaction Status Date / Time No Known Allergies Allergy Verified 04/07/23 08:24 Home Medication Medication Instructions Recorded prenat.vits,dago,zwr-mfic-snzea 1 tab PO DAILY 03/19/22 escitalopram oxalate 20 mg tablet 20 mg PO DAILY #90 tabs 04/10/22 lorazepam 1 mg tablet (Ativan) 1 mg PO PRN anxiety #14 tabs 04/10/22 triamcinolone acetonide 0.1 % 1 applic topical BID PRN Atopic 02/07/23 topical cream Dermatitis Current Visit Medications: Current Medications Generic Name Dose Route Start Last Admin Trade Name Freq PRN Reason Stop Dose Admin Ringer's Solution 1,000 mls @ 125 mls/hr 04/07/23 08:00 04/07/23 08:49 IV 125 mls/hr INFUSION ROSALES Administration Sodium Chloride 500 mls @ 0 mls/hr 04/07/23 07:57 Saline 500ml Bag IV PRN PRN As Directed Oxytocin/Sodium Chloride 30 unit in 500 mls @ 2 mls/hr 04/07/23 08:00 04/07/23 08:49 Pitocin/Normal Saline IV 2 milliunits/min INFUSION ROSALES 2 mls/hr Administration Protocol 2 MILLIUNITS/MIN IV Miscellaneous Supplies 1 each 04/07/23 08:00 Iv Access IV DIRECTED ROSALES Sodium Chloride 0 ml 04/07/23 07:57 Normal Saline Flush 10 Ml Syr IVP PRN PRN PFSH Active Problems Active Problems: Problem Status Onset Code Social anxiety disorder 05/22/16 F40.10 Vitamin D deficiency E55.9 Z34.90 Rubella non-immune status, antepartum O09.899, Z28.39 Hx of macrosomia in infant in prior , currently O09.299 History of shoulder dystocia in prior Z87.59 Medical History Medical History (Updated 02/17/23 @ 10:55 by Deana Langford MD) Fibrocystic breast changes of both breasts [place] [facility] [place]o [place] Migraine headache without aura Infrequent now since Tx for her TMJ . Nevus, atypical s/p skin biopsy. 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 Sx improved. Surgical History Surgical History [place]rosc[place] [facility] [place] 2006 Tobacco Smoking/Tobacco Use Status: Former Tobacco Use Passive smoking exposure: Yes Second hand exposure: Yes Counseling given: provider counseling and support medications Alcohol Alcohol Intake: current Alcohol intake frequency: a few times a month Alcohol type: beer Substance Use Substance use: Never Substance use type: does not use Prental History History 3 Para 2 Hx # Term Pregnancies 2 Multiple births 0 Hx # Pregnancies 0 Ectopic pregnancies 0 AB induced 0 Hx Number of Living Children 2 AB spontaneous 0 Past Pregnancies Del. Date GA/Weeks # Preg Succ Route Wgt Sex Labor Lgth Anesthesia Location [facility] 01/06/15 41 No Yes vaginal 5.103 kg Male Christian O'Dominguez 07/20/18 41 No Yes vaginal 4564.273 g Female 5 hrs. 8 min. [facility] induced Delivery Date: 01/06/15 Last Updated by: Jennifer Han IOL for post dates, episiotomy, mild shoulder dystocia, 3rd degree Delivery Date: 07/20/18 Last Updated by: Jennifer Han IOL for postdates, mild shoulder dystocia, PPH, no transfusion. Vital Signs and Lab Results Vital Signs Most Recent Vital Signs in EMR: Most Recent Vital Signs Temp Pulse Resp BP Pulse Ox 36.6 C 75 18 119/57 L 99 04/07/23 08:20 04/07/23 08:20 04/07/23 08:20 04/07/23 08:20 04/07/23 08:20 Lab Results 04/07/23 08:15 Blood Type / Crossmatch: No Data to Display Complete Blood Count: White Blood Count 8.19 10^3/uL (4.4-10.8) 04/07/23 08:15 Red Blood Count 3.74 10^6/uL (3.93-5.22) L 04/07/23 08:15 Hemoglobin 10.2 g/dL (11.2-15.7) L 04/07/23 08:15 Hematocrit 31.7 % (36.0-46.0) L 04/07/23 08:15 Platelet Count 219 10^3/uL (130-400) 04/07/23 08:15 Complete Metabolic Panel: No Data to Display Liver Function Panel: No Data to Display Coagulation Panel: No Data to Display Cardiac Panel: No Data to Display Arterial Blood Gas: No Data to Display Venous Blood Gas: No Data to Display Pancreas Panel: No Data to Display Thyroid Panel: No Data to Display Infectious Disease: No Data to Display Blood Cultures: No Data to Display Toxicology Panel: Urine Amphetamines Screen Negative (Negative) 03/19/23 12:00 Urine Benzodiazepines Screen Negative (Negative) 03/19/23 12:00 Urine Barbiturates Screen Negative (Negative) 03/19/23 12:00 Urine Cocaine Screen Negative (Negative) 03/19/23 12:00 Urine Methadone Screen Negative (Negative) 03/19/23 12:00 Urine Opiates Screen Negative (Negative) 03/19/23 12:00 Ur Tricyclic Antidepressants Screen Negative (Negative) 03/19/23 12:00 Ur Tetrahydrocannabinol (THC) Scrn Negative (Negative) 03/19/23 12:00 Panel: No Data to Display Anesthesia Assessment and Plan Anesthesia History Personal History: No History of Anesthesia Complications Family History: No Family History of Anesthesia Complications Exercise Tolerance Exercise Tolerance: Metabolic Equivalents>4 Pertinent Negatives Pertinent Negatives: No Symptoms of GERD, No Major Cardiovascular Symptoms or Complaints and No Major Pulmonary Symptoms or Complaints Cardiac & Pulmonary Exam Cardiac Exam: Normal S1/S2 Heart Sounds Pulmonary Exam: Clear Bilateral Breath Sounds Implantable Cardiac Device Does patient have a Pacemaker or an ICD?: No Airway Exam Known Difficult Airway: No Mallampati Class: 1 Mouth Opening: Normal (> 3cm) Thyromental Distance: Greater than 3 cm Neck Range of Motion: Full ROM Neck Circumference: Normal Teeth Condition: Normal Dentition ASA Classification ASA Score: ASA 2 Emergency Case?: No NPO Status NPO Status: Full Stomach Status Status: Confirmed Anesthesia Plan Resuscitation Status: Full Code Anesthesia Technique: Labor Epidural Airway Planned: Natural Airway Monitors Used: Standard Monitors
--- NOTE | 2023-04-07 12:40 | W.PM.OBNL1 ---
Date of service: 04/07/23 Time of Service: 12:40 Informed Consent Informed Consent: Induction of Labor Pelvic Exam Dilation: 2 Effacement (%): 75 station: -1 Position: OA Cervix Position: mid Consistency: soft Vaginal Exam Presentation: Cephalic Contractions Monitor Mode: External Contraction Frequency(min): Every 3 Contraction Duration(sec): 60 Intensity: Mild/Moderate Fetus A Monitor: External (US) Heart Rate Baseline: 140 Presentation: Cephalic Variability: Moderate (6-25 BPM) Categories: Category I FHR Rhythm: Regular Characteristics: Normal Accelerations: 15 X 15 Decelerations: None Amniotic Membrane Status: Ruptured Rupture Method: Artifical Amniotic Fluid: Clear Date of Membrane Rupture: 04/07/23 Time of Membrane Rupture: 12:42 Assessment and Plan Assessment and plan (1) Hx of macrosomia in infant in prior , currently : Status: Acute Assessment and plan: Oxytocin currently 10 milliunits/min we will continue to assess for labor progress. (2) History of shoulder dystocia in prior : Status: Acute (3) Encounter for induction of labor: Status: Acute Objective Abnormal lab results 04/07/23 Range/Units 08:15 RBC 3.74 L (3.93-5.22) 10^6/uL Hgb 10.2 L (11.2-15.7) g/dL Hct 31.7 L (36.0-46.0) % RDW 15.4 H (11.7-14.6) % Temp Pulse Resp BP Pulse Ox 97.6 F 67 19 116/59 L 99 04/07/23 12:13 04/07/23 12:13 04/07/23 12:13 04/07/23 12:13 04/07/23 08:20 Laboratory Results WBC 8.19 10^3/uL (4.4-10.8) 04/07/23 08:15 RBC 3.74 10^6/uL (3.93-5.22) L 04/07/23 08:15 Hgb 10.2 g/dL (11.2-15.7) L 04/07/23 08:15 Hct 31.7 % (36.0-46.0) L 04/07/23 08:15 MCV 85 fL (80-95) 04/07/23 08:15 MCH 27.3 pg (27.0-33.0) 04/07/23 08:15 MCHC 32.2 % (32.0-36.0) 04/07/23 08:15 RDW 15.4 % (11.7-14.6) H 04/07/23 08:15 Plt Count 219 10^3/uL (130-400) 04/07/23 08:15 MPV 10.7 fL (8.0-11.0) 04/07/23 08:15 Patient ABO/Rh AB Positive 04/07/23 08:15 Antibody Screen NEGATIVE 04/07/23 08:15 Vital Signs Reviewed: Yes Subjective Patient Reports: No new Complaints Interval history since last seen: Feeling uterine contractions more intensely. No nausea or vomiting she has been able to ambulate without difficulty. Interventions Induction Indication: Other (History of macrosomia and hemorrhage), Type of Induction: Pitocin rate at(mU/min): 10, Results Hemoglobin/Hematocrit: Hgb 10.2 g/dL (11.2-15.7) L 04/07/23 08:15 Hct 31.7 % (36.0-46.0) L 04/07/23 08:15 Abnormal Lab Findings: Abnormal Labs 04/07/23 08:15 RBC 3.74 L Hgb 10.2 L Hct 31.7 L RDW 15.4 H
--- NOTE | 2023-04-07 14:14 | W.PM.OBNL1 ---
Date of service: 04/07/23 Time of Service: 14:14 Informed Consent Informed Consent: Induction of Labor Pelvic Exam Comments: Pelvic exam deferred. Contractions Monitor Mode: External Contraction Frequency(min): 2-3 Contraction Duration(sec): 60 Intensity: Moderate Fetus A Monitor: External (US) Variability: Moderate (6-25 BPM) Categories: Category I FHR Rhythm: Regular Characteristics: Normal Accelerations: 15 X 15 Decelerations: None Assessment and Plan Assessment and plan (1) Encounter for induction of labor: Status: Acute Assessment and plan: Patient had requested epidural for labor analgesia. Anesthesia provider has been notified and will provide epidural in the near future. Objective Abnormal lab results 04/07/23 Range/Units 08:15 RBC 3.74 L (3.93-5.22) 10^6/uL Hgb 10.2 L (11.2-15.7) g/dL Hct 31.7 L (36.0-46.0) % RDW 15.4 H (11.7-14.6) % Temp Pulse Resp BP Pulse Ox 97.6 F 67 19 116/59 L 99 04/07/23 12:13 04/07/23 12:13 04/07/23 12:13 04/07/23 12:13 04/07/23 08:20 Laboratory Results WBC 8.19 10^3/uL (4.4-10.8) 04/07/23 08:15 RBC 3.74 10^6/uL (3.93-5.22) L 04/07/23 08:15 Hgb 10.2 g/dL (11.2-15.7) L 04/07/23 08:15 Hct 31.7 % (36.0-46.0) L 04/07/23 08:15 MCV 85 fL (80-95) 04/07/23 08:15 MCH 27.3 pg (27.0-33.0) 04/07/23 08:15 MCHC 32.2 % (32.0-36.0) 04/07/23 08:15 RDW 15.4 % (11.7-14.6) H 04/07/23 08:15 Plt Count 219 10^3/uL (130-400) 04/07/23 08:15 MPV 10.7 fL (8.0-11.0) 04/07/23 08:15 Patient ABO/Rh AB Positive 04/07/23 08:15 Antibody Screen NEGATIVE 04/07/23 08:15 Subjective Interval history since last seen: Feeling contractions more intensely. Interventions Pain Management Interventions: Epidural (Anesthesia now notified at 1410 that patient desires epidural placement.). Results Hemoglobin/Hematocrit: Hgb 10.2 g/dL (11.2-15.7) L 04/07/23 08:15 Hct 31.7 % (36.0-46.0) L 04/07/23 08:15 Abnormal Lab Findings: Abnormal Labs 04/07/23 08:15 RBC 3.74 L Hgb 10.2 L Hct 31.7 L RDW 15.4 H
[2023-04-07] MEDS: FentaNYL/ROPIvacaine 2 mcg/ml and 0.1% 200 ML CADD Cassette EP (14:38)
--- NOTE | 2023-04-07 14:39 | W.ANESNEU ---
Epidural/Spinal Catheter Date Performed: 04/07/23 Procedure Start: 14:20 Procedure Stop: 14:49 Requesting Provider: Rosanna Blanca Procedure Location: Obstetrics Reason Performed: Labor Epidural Standard Monitors Applied: Blood Pressure, SpO2 and See EMR for corresponding vital signs Patient Position: Sitting Sedation Given (Indicate Dose Given): No Sedation given Patient Mental Status: Awake Sterility: Hand Hygiene, Surgical Cap, Surgical Mask, Sterile Gloves, Sterile Drape/Sheet and Chlorhexidine Procedure Location: L3-L4 Interspace Epidural Needle: Tuohy 18 Gauge Needle Length: 3.5 Inch Needle Approach: Midline Epidural Procedure: Skin Prepped, Sterile Drape Placed, 1% Lidocaine to skin and subcutaneous tissue with 25G needle, Tuohy Needle placed, FAUSTO to Saline Used, Epidural Catheter Placed, Negative Heme and Negative CSF Flow Catheter Placed?: Catheter Placed Test Dose (Indicate Dose Given): 3ml 1.5% Lidocaine with 1:200K Epinephrine Given and Negative Test Dose Loss of Resistance Depth (cm): 5 Catheter depth at skin (cm): 11 Dressing: Sorbaview Dressing Placed, Mastisol Used and Dressing reinforced with Tape Epidural Provider Bolus (Indicate Dose Given): Total bolus dose given in 3-5 ml divided doses and Total Ropivacaine 0.1% with Fentanyl 2mcg/ml Given from pump. (ml) Dose:: 5 ml Additives (Indicate Dose Given ): None Infusion Medication: Medication Infusion Began Medication Infusion: Ropivacaine 0.1% with Fentanyl 2mcg/ml Maintenance Infusion Rate (ml/hour): 10 PCEA Bolus Dose (ml): 5 Block Level: N/A Paresthesia: None Ultrasound: Not Used Number of Attempts (See previous attempts in note section): 1 Procedure Tolerated: No Complications and Patient tolerated well Procedure Outcome: Successful Procedure Comment:: Uncomplicated. Gave 5 ml from pump and educated on PCEA use. Performed By: Dionicio Pagan
[2023-04-07] MEDS: Methylergonovine 0.2 MG/ML VIAL (17:34)
[2023-04-07] MEDS: Hamamelis Leaf/Glycerin 100 EACH BOX PR (21:00)
[2023-04-07] MEDS: Dibucaine 1% 28 GM TUBE TP (21:30)
[2023-04-07] MEDS: Acetaminophen 325 MG TAB 650 MG PO (22:31)
[2023-04-07] MEDS: Ibuprofen 600 MG TAB PO (22:31)
[2023-04-08 00:16] VITALS: BP 106/56; PULSE 59; RESP 18; TEMP 36.6
[2023-04-08 02:30] VITALS: BP 104/52; PULSE 62; RESP 18; TEMP 36.6
[2023-04-08 07:35] VITALS: BP 102/59; PULSE 60; RESP 18; TEMP 36.8; O2SAT 99
[2023-04-08] MEDS: Ibuprofen 600 MG TAB PO (07:38)
[2023-04-08] MEDS: Acetaminophen 325 MG TAB 650 MG PO (07:38)
[2023-04-08 08:30] VITALS: PULSE 78; RESP 18; O2SAT 100
--- NOTE | 2023-04-08 08:43 | OBPPV_ITS ---
Date of service: 04/08/23 Time of Service: 08:43 Assessment and Plan Assessment and plan (1) care following vaginal delivery: Status: Acute Assessment and plan: day 1 spontaneous vaginal delivery. Patient had induction of labor for history of macrosomia and hemorrhage. She has had minimal uterine bleeding since delivery. Complaints of shortness of breath were carmen luated while and physical exam is unremarkable. We will continue to follow plan discharge to home if patient and remained stable. Subjective Subjective Interval history: Induction of labor at term with uncomplicated vaginal delivery of viable female infant Patient comments: No complaints Patient's Mood: Good baby status: Doing well, Nursing well and Strong Bonding Observed Griffin feeding status: Exclusively breast feeding Exam Physical Exam Vital signs: Temp Pulse Resp BP Pulse Ox 98.2 F 60 18 102/59 L 99 04/08/23 07:35 04/08/23 07:35 04/08/23 07:35 04/08/23 07:35 04/08/23 07:35 Vital Signs Reviewed: Yes Narrative: Patient reported feeling short of breath after ambulating to the bathroom this morning. Oxygen saturation 95 to 99% on room air during ambulation. Pulse essentially unchanged or pressure normal. Constitutional Constitutional: no acute distress HEENT Exam HEENT Exam: Normal Neck Exam Neck Exam: Normal Respiratory Exam Respiratory Exam: Normal Cardiovascular Exam Cardiovascular Exam: Normal Abdominal Exam Abdomen: Diastasis Fundal Exam Fundus: Below Umbilicus Rectal Exam Rectal Exam: Not Done Extremities Exam Extremity Exam: Normal Back/Spine/Pelvis Exam Back Exam: Normal Skin Exam Skin Exam: Normal Neurological Exam Neurological Exam: Normal Psychiatric Exam Psychiatric Exam: Normal Results Hemoglobin/Hematocrit: Hgb 10.2 g/dL (11.2-15.7) L 04/07/23 08:15 Hct 31.7 % (36.0-46.0) L 04/07/23 08:15 Abnormal Lab Findings: Abnormal Labs 04/07/23 08:15 RBC 3.74 L Hgb 10.2 L Hct 31.7 L RDW 15.4 H
--- NOTE | 2023-04-08 08:46 | W.OBDELIVERY ---
Date of service: 04/07/23 Time of Service: 08:47 OB Labor/ Delivery Information Baby A Delivery Delivery Method: Spontaneaous Providers Doctor: Rosanna Blanca Nurse: Daisy Manuel Nurse: Ada Suarez Labor/Delivery Information Number of Babies in Womb: 1 Steroids Given: None Reason Steroids Not Administered: N/A Group Beta Strep: Negative Antibiotics Administered: No Rubella Status: Immune Blood Type: AB+ Varicella Immunity: Immune Medication in Delivery: Oxytocin via IV administered with delivery of the and after the cord Born En Route: No Maternal Complications: None Shoulder Dystocia: No Stages of Labor Onset of Labor Date: 04/07/23 Onset of Labor Time: 14:00 Complete Dilatation Date: 04/07/23 Complete Dilatation Time: 17:16 Labor - Stage 1 Duration: 3 hours and 16 minutes ROM Baby A: 04/07/23 ROM Baby A: 12:42 ROM Total Time- Baby A: [id number] Infant Delivery Date-Baby A: 04/07/23 Infant Delivery Time-Baby A: 17:25 Labor Stage 2 Duration: 9 minutes Placenta Delivery Date-Baby A: 04/07/23 Placenta Delivery Time-Baby A: 17:29 Labor-Stage 3 Duration: 4 minutes Total Length of Labor-Baby A: 3 hours and 25 minutes Placenta Cultured: No Placenta Status: Delivered (Intact with a normal configuration and three-vessel cord.) Baby A Infant Gender: Female Gestational Status: Term (39-41.6 wks) Gestational Age in Weeks/Days: 39 Weeks and 1 Days weight: 8 lb 0.397 oz Length-Baby A: 20.5 in Head Circumference-Baby A: 13.25 in Score-1 Minute Interval(Baby A) Heart Rate-1 minute: 100 BPM or Greater Respiratory Effort- 1 minute: Spontaneous/Strong Cry Muscle Tone-1 minute: Active Movement Reflex Response-1 minute: Prompt Response Color-1 minute: Pallor or Cyanosis Total Score-1 minute: 8 Score-5 Minute Interval(Baby A) Heart Rate- 5 minute: 100 BPM or Greater Respiratory Effort-5 minute: Spontaneous/Strong Cry Muscle Tone-5 minute: Active Movement Reflex Response-5 minute: Prompt Response Color-5 minute: Bluish Hands or Feet Total Score- 5 minute: 9 Note: Parents plan to name their daughter Brittani Interventions Pain Management Interventions: Epidural./ Induction Indication: Other (History of hemorrhage and macrosomic infants), Type of Induction: Pitocin, Hemorrrhage Note Note Note: No hemorrhage. Submitted blood loss at the time of delivery 300 cc
[2023-04-08] MEDS: Measles, Mumps, & Rubella Vaccine 0.5 ML VIAL SC (09:18)
--- NOTE | 2023-04-08 10:06 | W.ANESPOSTOP ---
Postoperative Evaluation Date, Time and Location Date Performed: 04/08/23 Time Performed: 10:06 Patient Location: Obstetrics Vital Signs Most Recent Imported Vital Signs: Most Recent Vital Signs Temp Pulse Resp BP Pulse Ox 36.8 C 78 18 102/59 L 100 04/08/23 07:35 04/08/23 08:30 04/08/23 08:30 04/08/23 07:35 04/08/23 08:30 Pain Score Most Recent Pain Score: Most Recent Pain Score Pain Level 4 04/08/23 07:38 Assessment Mental Status: Awake (Alert & Oriented to Patient Baseline) Airway and Respiratory Function: Patent airway with normal (patient baseline) respiratory exam Cardiovascular Function: Hemodynamically Stable Hydration Status: Adequately Hydrated Nausea & Vomiting: No Nausea or Vomiting Pain: Pain is tolerable per patient (Using tylenol and ibuprofen with good results) Peripheral Nerve Block: Patient did not receive a nerve block
[2023-04-08] MEDS: Dibucaine 1% 28 GM TUBE TP (13:23)
--- NOTE | 2023-04-08 17:39 | W.PM.OBPNV1 ---
Date of service: 04/08/23 Time of Service: 17:39 Assessment and Plan Assessment and plan (1) care following vaginal delivery: Status: Acute Assessment and plan: Status postnormal vaginal delivery, day 1. Discharge home. Routine care. Follow-up 2 and 6 weeks. All questions answered. Subjective Subjective Narrative: Patient seen and examined day #1 status post induced labor and vaginal delivery. Doing well. Breast-feeding without difficulty. Desires discharge. Stable vital signs. Exam Physical Exam Vital signs: Temp Pulse Resp BP Pulse Ox 98.2 F 78 18 102/59 L 100 04/08/23 07:35 04/08/23 08:30 04/08/23 08:30 04/08/23 07:35 04/08/23 08:30 Vital Signs Reviewed: Yes Constitutional Constitutional: no acute distress HEENT Exam HEENT Exam: Normal Neck Exam Neck Exam: Normal Respiratory Exam Respiratory Exam: Normal Cardiovascular Exam Cardiovascular Exam: Normal Abdominal Exam Comments: Soft, nontender Fundal Exam Fundus: Below Umbilicus and Firm Extremities Exam Extremity Exam: Normal; negative Calf Tenderness Skin Exam Skin Exam: Normal Neurological Exam Neurological Exam: Normal Psychiatric Exam Psychiatric Exam: Normal Results Hemoglobin/Hematocrit: Hgb 10.2 g/dL (11.2-15.7) L 04/07/23 08:15 Hct 31.7 % (36.0-46.0) L 04/07/23 08:15 Abnormal Lab Findings: Abnormal Labs 04/07/23 08:15 RBC 3.74 L Hgb 10.2 L Hct 31.7 L RDW 15.4 H
--- NOTE | 2023-04-08 17:41 | DSE_ITS ---
Date of service: 04/08/23 Time of Service: 17:41 DS: Diagnosis Discharge Diagnosis (1) care following vaginal delivery: Status: Acute Asessment and Plan: day 1 status postnormal spontaneous vaginal delivery after labor induction. Discharge home. Routine care. Discharge Plan Disposition Patient Disposition: Home Condition: Good Discharge Details Reason For Visit: Induction of Labor Admit Date/Time: 04/07/23 07:22 Admit Provider: Rosanna Blanca Attending Provider: Rosanna Blanca Primary Care Provider: Emma Hernandez Hospital Course Hospital Course: Patient was admitted given 9 weeks gestation for labor induction. She received augmentation of labor and had a normal spontaneous vaginal delivery of a viable female . There was no hemorrhage, or shoulder dystocia as previous deliveries. She had an uncomplicated care and is discharged home day #1 ambulating, tolerating regular diet and oral pain medication with stable vital signs. Home Meds and New Rx's Prescriptions: New ibuprofen 600 mg tablet 600 mg PO Q8H PRNQty: 60 1RF No Action triamcinolone acetonide 0.1 % cream 1 applic topical BID PRN (Reason: Atopic Dermatitis) escitalopram oxalate 20 mg tablet 20 mg PO DAILY Qty: 90 1RF lorazepam [Ativan] 1 mg tablet 1 mg PO PRN Qty: 14 0RF prenat.vits,dago,evw-kfxy-ntefk Tablet 1 tab PO DAILY Discharge Instructions Stand Alone Forms: BC Instructions, BC Post Vaginal Deliver Activity:: Pelvic rest for 6 weeks Equipment/Supplies:: No Equipment Needed Diet:: As Tolerated Discharge Orders Discharge Orders: Discharge Order (Routine); Ordered 04/08/23 Ordered By: Aziza Gomes Discharge Data Discharge Date/Time-TO BE ENTERED AT DEPARTURE: 04/08/23 18:58 OB:DS Summary Summary Vaginal Delivery Method: Spontaneaous Episiotomy Description: None Laceration Description: None Laceration Extension: N/A Contraception Discussed Contraception Discussed: Yes, [place] Infant Gender-Baby A: Female weight: 8 lb 0.397 oz Status at Discharge Functional status at discharge: independent ambulation Overall status at discharge: patient is back to baseline Mental Status: mental status grossly normal Speech and Movement: speech and movement normal Mood: congruent mood Affect: normal affect Exam Physical Exam Vital signs: Temp Pulse Resp BP Pulse Ox 98.2 F 78 18 102/59 L 100 04/08/23 07:35 04/08/23 08:30 04/08/23 08:30 04/08/23 07:35 04/08/23 08:30 Narrative: See physical exam from progress note dated 04/18/2023 [facility] All Active Problems (Updated 04/09/23 @ 00:19 by RAMON MOSQUERA) care following vaginal delivery (Acute) Social anxiety disorder (Acute 05/22/16) Managed with citalopram; prior trial of sertraline. Vitamin D deficiency (Acute) (Acute) Rubella non-immune status, antepartum (Acute) Medical History (Updated 04/09/23 @ 00:19 by RAMON MOSQUERA) Fibrocystic breast changes of both breasts Managed by [facility] [place]; no h/o biopsy History of shoulder dystocia in prior Migraine headache without aura Infrequent now since Tx for her TMJ . Nevus, atypical s/p skin biopsy. 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 Sx improved. Surgical History [place]mj [place]rosc[place] 03[place] [facility] [place] teeth extractions 2006 Family History (Updated 09/26/22 @ 10:03 by Liana Mata CNM) Maternal Aunt Multiple sclerosis Paternal Aunt Breast cancer 30s Mother Fibrocystic breast changes of both breasts Maternal Grandmother Osteoporosis Breast cancer Father Hyperlipidemia Brother No problems noted. Brother No problems noted. Brother No problems noted. Son No problems noted. Daughter No problems noted. Paternal Grandfather Heart disease Other Diabetes Myocardial infarction Personal history of malignant neoplasm Social History Smoking/Tobacco Use Status: Former Tobacco Use Quit Date: 09/08/13 Tobacco: How many years used: 12 Quit status: has quit before Second Hand Exposure: Yes Counseling given: provider counseling and support medications Smoking risk assessment performed?: Yes Alcohol Intake: current Alcohol Intake frequency: a few times a month Alcohol type: beer Drug use: Never Substance use type: does not use Adopted: No Caregiver/Support person: No Foster care: No Household members: spouse, family and children Housing: house Number of Children: 2 Communication Needs: None Education Level: college 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[employer]; RN Pets and animals: Yes Pets and animals: cat(s) and dog(s) Sexually active: Yes Do you think of yourself as: straight/heterosexual Current gender identity: female What is your relationship status?: How often do you attend catholic or muslim services?: 4 or more times per year Do you belong to any clubs or organized social groups?: no Panel score (0-1 are the most socially isolated patients): 2 What type of physical activity do you participate in: other Details: enjoys camping, hiking Tania/Roman Catholic: Zoroastrianism Seatbelt use: always Helmet use: Yes Helmet use: always Drive intox or ride w/intox bus driver/monitor: No Do you feel safe in your relationship?: Yes History History 3 Para 2 Hx # Term Pregnancies 2 Multiple births 0 Hx # Pregnancies 0 Ectopic pregnancies 0 AB induced 0 Hx Number of Living Children 2 AB spontaneous 0 Past Pregnancies Del. Date GA/Weeks # Preg Succ Route Wgt Sex Labor Lgth Anesth esia Location [facility] 01/06/15 41 No Yes vaginal 11 lb 4 oz Male Anea , [place] 07/20/18 41 No Yes vaginal 10 lb 1 oz Female 5 hrs. 8 min. [facility] bennett cnm induced Delivery Date: 01/06/15 Last Updated by: Jennifer Han IOL for post dates, episiotomy, mild shoulder dystocia, 3rd degree Delivery Date: 07/20/18 Last Updated by: Jennifer Han IOL for postdates, mild shoulder dystocia, PPH, no transfusion. DS: Data Vitals/I&O Vitals and I&O: Vital Signs Temperature 98.2 F 04/08/23 07:35 Temperature Source Oral 04/08/23 07:35 Pulse 78 04/08/23 08:30 Pulse Rhythm Regular 04/08/23 07:35 Respiratory Rate 18 04/08/23 08:30 Blood Pressure 102/59 L 04/08/23 07:35 Blood Pressure Mean 73 04/08/23 07:35 Pulse Oximetry 100 04/08/23 08:30 Oxygen Delivery Method Room Air 04/07/23 08:20 Oxygen Flow Rate 0 04/07/23 08:20 Pain Level 4 04/08/23 07:38 Comment Patient got up to use the restroom, RN monitored oxygen saturations and heart rate throughout the duration. Pulse ranged from 78-95 bpm. Oxygen saturations ranged from 99-100% on room air. 04/08/23 08:30 Intake & Output 04/07/23 04/08/23 04/08/23 23:59 11:59 23:59 Intake Total 1166.266 / 1139.158 2318 / 1000 Output Total 700 / 1100 500 / 500 Balance 466.266 / 72.299 500 / 500 Intake: IV 1166.266 / 6484.023 3639 / 1000 Output: Urine 700 / 1100 500 / 500
== END 2023-04-08 18:58 | disposition home or self-care (01) | DRG 806 ==
PROVIDERS: Admitting Provider Obstetrics & Gynecology Gynecology; PCP Family Medicine; Visit Provider Obstetrics & Gynecology Gynecology
DX: O99.02 Anemia complicating childbirth (principal); O99.354 Diseases of the nervous system complicating childbirth; Z37.0 Single live birth; Z3A.39 39 weeks gestation of pregnancy; O99.344 Other mental disorders complicating childbirth; F41.8 Other specified anxiety disorders; G43.009 Migraine without aura, not intractable, without status migrainosus; M19.09 Primary osteoarthritis, other specified site; N60.12 Diffuse cystic mastopathy of left breast; N60.11 Diffuse cystic mastopathy of right breast; E55.9 Vitamin D deficiency, unspecified; Z87.891 Personal history of nicotine dependence; R06.02 Shortness of breath; O75.89 Other specified complications of labor and delivery
CPT/HCPCS: 36415; 85027; 86850; 86900; 86901; J2210

== ENCOUNTER 2023-05-19 10:59 | Outpatient (REF) | payer OTHER, SELFPAY ==
--- NOTE | 2023-05-19 10:45 | CER_PTH ---
PATIENT: Sujata García LOC: N U#:[id number] AGE/SX: 32/F ROOM: RE05/19/[address]: Aziza Gomes DO : 1990 BED: DIS: 05/19/2023 SPEC #: [id number] RECD: 05/19/23 12:52 STATUS: HEIKE REQ #: [id number] MICHELLE: 05/19/23 10:[address]: Aziza Gomes DEPT: Surgical Specimen RECD BY: Starla Vela ENTERED: 05/19/23 12:56 SP TYPE: CER OT DR: Emma Hernandez Tissues: 1 - CERVICAL BIOPSY Procedures: GROSS AND MICRO LEVEL 4 Comments: [id number]
[2023-05-20 17:35] LABS: Chlamydia Result Negative (Negative); GC Result Negative (Negative)
== END 2023-05-19 11:00 | disposition home or self-care (01) ==
LOC: LBN 10:59
PROVIDERS: PCP Family Medicine; Visit Provider Obstetrics & Gynecology
DX: Z30.430 Encounter for insertion of intrauterine contraceptive device (principal)
CPT/HCPCS: 87491; 87591; 88305

== ENCOUNTER 2024-02-13 15:24 | Outpatient (CLI) | payer OTHER, SELFPAY ==
[2024-02-13 16:20] LABS: TSH (W/Ref FT4) 1.26 uIU/mL (0.36-3.74)
== END 2024-02-13 15:25 | disposition home or self-care (01) ==
LOC: LBO 15:25
PROVIDERS: PCP Family Medicine; Visit Provider Family Medicine
DX: R53.83 Other fatigue (principal)
CPT/HCPCS: 36415; 84443

== ENCOUNTER 2024-02-17 13:27 | Emergency (ER) | payer OTHER, SELFPAY ==
[2024-02-17 13:37] VITALS: BP 120/63; PULSE 80; RESP 18; TEMP 36.8; O2SAT 99
--- NOTE | 2024-02-17 14:15 | ED.GENADUL_ITS ---
Discharge Plan Disposition Patient Disposition: Home Condition: Stable Discharge Details Clinical Impression: Headache Primary Care Provider: Emma Hernandez ED Provider: Chidi Kelley Home Meds and New Rx's Prescriptions: No Action lorazepam [Ativan] 1 mg tablet 1 mg PO PRN Qty: 14 0RF Mirena 21 mcg/24 hours (8 yrs) 52 mg intrauterine device 1 device intrauterine ONCE Rx Instructions: as a single dose escitalopram oxalate 20 mg tablet 20 mg PO DAILY Qty: 90 1RF ibuprofen 600 mg tablet 600 mg PO Q8H PRNQty: 60 1RF Discharge Instructions Instructions: Headache, Adult ED Additional Instructions: INCREASE WATER INTAKE AT HOME CONTINUE OTC MEDICATIONS NEEDED IF HEADACHE RETURNS, IF SEVERE OR WITH FEVER OR NECK STIFFNESS RETURN TO THE ED HPI General Date/Time Provider Initiated Documentation: 02/17/24 13:52 . Limitations to Documentation: no limitations . Information obtained by: patient . HPI Narrative: 33-year-old female with past medical history of anxiety presents for evaluation of headache. She reports that she has had prior migraine headaches but this feels a little bit different. She reports that her headache started yesterday and lasted for about 18 hours. She reports relief after taking Excedrin Migraine at 3 AM this morning. She reports a generalized sharp pain. She reports that it got worse with movement of her head, bending over or standing up. Not associated with photophobia, diplopia or blurry vision. Not associated with nausea or vomiting. She reports that the generalized chronic pain has stopped since taking the medication this morning. But she reports that the positional changes have persisted. She denies any neck pain or stiffness, denies any trauma, denies any fever. She denies any sick symptoms or nasal congestion. She reports that when she moves into these positions she gets a sharp pain on the top of her head and it is brief and resolved spontaneously, not requiring another change in position. Related Data Home Medications Medication Instructions Recorded Confirmed lorazepam 1 mg tablet (Ativan) 1 mg PO PRN anxiety #14 tabs 04/10/22 02/17/24 ibuprofen 600 mg tablet 600 mg PO Q8H PRN #60 tabs 04/08/23 02/17/24 levonorgestrel 21 mcg/24 hr (up to 1 device intrauterine ONCE 05/19/23 02/17/24 8 years) 52 mg intrauterine device (Mirena) escitalopram oxalate 20 mg tablet 20 mg PO DAILY #90 tabs 12/08/23 02/17/24 Previous Rx's Medication Instructions Recorded lorazepam 1 mg tablet (Ativan) 1 mg PO PRN anxiety #14 tabs 04/10/22 ibuprofen 600 mg tablet 600 mg PO Q8H PRN #60 tabs 04/08/23 escitalopram oxalate 20 mg tablet 20 mg PO DAILY #90 tabs 12/08/23 Allergies Allergy/AdvReac Type Severity Reaction Status Date / Time No Known Allergies Allergy Verified 02/17/24 13:40 General Stated Complaint: Headache RAMY: 4 Exam Narrative Exam Narrative: Review of Systems: All systems reviewed & are unremarkable except as noted in HPI and below Well-developed, no acute distress NCAT PERRL, normal conjunctiva , no nystagmus RRR Unlabored respiratory effort Nondistended abdomen Extremities w/o deformity, no cyanosis, no edema No rashes or lesions. no focal neurologic deficits, cranial nerves intact, no facial asymmetry or speech abnormality, no past-pointing, negative Romberg, no ataxia, neck with full range of motion, no meningeal symptoms Appropriate mood and affect Course Vital Signs Vital signs: Vital Signs Temperature 36.8 C 02/17/24 13:37 Pulse 80 02/17/24 13:37 Respiratory Rate 18 02/17/24 13:37 Blood Pressure 120/63 02/17/24 13:37 Pulse Oximetry 99 02/17/24 13:37 Temperature 36.8 C 02/17/24 13:37 Temperature Source Temporal Artery Scan 02/17/24 13:37 Pulse 80 02/17/24 13:37 Respiratory Rate 18 02/17/24 13:37 Respiratory Effort Normal, Non-Labored 02/17/24 13:40 Blood Pressure 120/63 02/17/24 13:37 Blood Pressure Position Sitting 02/17/24 13:37 Pulse Oximetry 99 02/17/24 13:37 Oxygen Delivery Method Room Air 02/17/24 13:37 Oxygen Flow Rate 0 02/17/24 13:37 Pain Level 5 02/17/24 14:00 Medical Decision Making Emergent evaluation of headache. Initial differential includes migraine, dehydration, very low suspicion for infectious etiology or other intracranial process given her benign physical exam and lack of neurofindings. Based on her physical examination and symptoms, I do not feel that she needs any head imaging at this time. Will treat residual headache symptoms with fluids and headache cocktail and reevaluate. Patient reports complete resolution of her symptoms. No additional headache with movement or positional changes. At this time I feel she is stable for discharge home. Return precautions advised. Advised to increase oral hydration. Medical Records Medical records reviewed: Yes I reviewed the patient's medical records. Quality:SDOH Health Related Social Needs: No Data to Display PFS All Active Problems (Updated 02/17/24 @ 15:35 by Chidi Kelley MD) Headache (Acute) Social anxiety disorder (Acute 05/22/16) Managed with citalopram; prior trial of sertraline. Vitamin D deficiency (Acute) Rubella non-immune status, antepartum (Acute) Medical History History of shoulder dystocia in prior Nevus, atypical s/p skin biopsy. 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 Sx improved. Migraine headache without aura Infrequent now since Tx for her TMJ . Surgical [place] [facility] [place] 2006 Family History Maternal Aunt Multiple sclerosis Paternal Aunt Breast cancer 30s Mother Fibrocystic breast changes of both breasts Maternal Grandmother Osteoporosis Breast cancer Father Hyperlipidemia Brother No problems noted. Brother No problems noted. Brother No problems noted. Son No problems noted. Daughter No problems noted. Paternal Grandfather Heart disease Other Diabetes Myocardial infarction Personal history of malignant neoplasm Social History Smoking/Tobacco Use Status: Former Tobacco Use Quit Date: 09/08/13 Tobacco: How many years used: 12 Quit status: has quit before Second Hand Exposure: Yes Counseling given: provider counseling and support medications Smoking risk assessment performed?: Yes Alcohol Intake: current Alcohol Intake frequency: a few times a month Alcohol type: beer Drug use: Never Substance use type: does not use Adopted: No Caregiver/Support person: No Foster care: No Household members: spouse, family and children Housing: house Number of Children: 2 Communication Needs: None Education Level: college 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[employer]; RN Pets and animals: Yes Pets and animals: cat(s) and dog(s) Sexually active: Yes Do you think of yourself as: straight/heterosexual Current gender identity: female What is your relationship status?: How often do you attend bahai or druze services?: 4 or more times per year Do you belong to any clubs or organized social groups?: no Panel score (0-1 are the most socially isolated patients): 2 What type of physical activity do you participate in: other Details: enjoys camping, hiking Tania/Caodaism: Restorationist Seatbelt use: always Helmet use: Yes Helmet use: always Drive intox or ride w/intox bus driver supervisor: No Do you feel safe in your relationship?: Yes History History 3 Para 3 Hx # Term Pregnancies 3 Multiple births 0 Hx # Pregnancies 0 Ectopic pregnancies 0 AB induced 0 Hx Number of Living Children 3 AB spontaneous 0 Past Pregnancies Del. Date GA/Weeks # Preg Succ Route Wgt Sex Labor Lgth Anesth esia Location [facility] 01/06/15 41 No Yes vaginal 5.103 kg Male Rianna Gonzales 07/20/18 41 No Yes vaginal 4564.273 g Female 5 hrs. 8 min. barrington bennett cnm induced 04/06/23 39 No Yes vaginal 3639.994 g Female AOC Delivery Date: 01/06/15 Last Updated by: Jennifer Han IOL for post dates, episiotomy, mild shoulder dystocia, 3rd degree Delivery Date: 07/20/18 Last Updated by: Jennifer Han IOL for postdates, mild shoulder dystocia, PPH, no transfusion.
[2024-02-17] MEDS: Normal Saline 1,000 ML 1000 ML IV (14:24)
[2024-02-17] MEDS: diphenhydrAMINE 50 MG/ML VIAL 25 MG IVP (14:27)
[2024-02-17] MEDS: Ketorolac 15 MG/ML VIAL 10 MG IVP (14:28)
[2024-02-17] MEDS: Prochlorperazine 10 MG/2 ML VIAL 5 MG IVP (14:32)
[2024-02-17] MEDS: MAGNESIUM SULFATE 2 GM/50 ML BAG IVINF (14:32)
== END 2024-02-17 15:57 | disposition home or self-care (01) ==
LOC: ER 15:35
PROVIDERS: Emergency Provider Emergency Medicine; PCP Family Medicine
DX: R51.9 Headache, unspecified (principal); Z87.891 Personal history of nicotine dependence
CPT/HCPCS: 96361; 96365; 96375; 99284; 99283; J0780; J1200; J1885; J3475

== ENCOUNTER 2024-09-18 12:57 | Observation (INO) | payer OTHER, SELFPAY ==
[2024-09-18] VITALS (113 sets, daily range): BP systolic 94–110; BP diastolic 35–75; PULSE 64–153; RESP 12–50; TEMP 37.1; O2SAT 97–100
--- NOTE | 2024-09-18 12:45 | RT.EKG_ITS ---
APPROVED REPORT Exam: Resting ECG Reason for Exam: SOB Patient Location: E HR:141 bpm ECG Measurements Heart Rate 141 AXIS OH 77 P 0 QRSd 69 QRS 85 QT 272 T -32 QTc 418 Conclusion Sinus tachycardia...rate> 99 ST depr, consider ischemia, inferior leads...ST <-0.10mV, II III aVF
--- OUTSIDE RECORDS SUMMARY | 2024-09-18 13:04 | XMS_ITS | Clinical Summary ---
Author Organization [facility] Address [facility] [place] [address] Care Team Providers Care Device Processing Engineer Name Role Phone Emma Hernandez MD Primary Care Provider [phone] Allergies No known active allergies Medications Medication Sig Dispensed Refills Start Date End Date Status citalopram (CELEXA) 40 mg Tablet 05/18/2019 Active LORazepam (ATIVAN) 1 mg Tablet Take 1 mg by mouth Every 6 hours as needed. Active ibuprofen (ADVIL;MOTRIN) 600 mg Tablet Take 600 mg by mouth Every 6 hours as needed. 04/04/2016 Active triamcinolone (Kenalog) 0.1 % Cream Apply topically 2 times daily. 30 g 12/24/2022 Active Active Problems No known active problems Social History Tobacco Use Types Packs/Day Years Used Date Smoking Tobacco: Every Day Smokeless Tobacco: Never Sex and Gender Information Value Date Recorded Sex Assigned at Not on file Gender Identity Not on file Sexual Orientation Not on file Last Filed Vital Signs Vital Sign Reading Time Taken Comments Blood Pressure 113/40 01/29/2023 1:45 PM EDT Pulse 80 01/29/2023 1:45 PM EDT Temperature 37.6 ??C (99.6 ??F) 09/14/2019 8:43 AM ES T Respiratory Rate 16 01/29/2023 1:45 PM EDT Oxygen Saturation 100% 01/29/2023 1:45 PM EDT Inhaled Oxygen Concentration - - Weight 54.7 kg (120 lb 11.2 oz) 09/14/2019 8:43 AM EST Height 175.3 cm (5' 9) 09/14/2019 8:43 AM EST Body Mass Index 17.82 09/14/2019 8:43 AM EST Plan of Treatment Health Maintenance Due Date Last Done Comments HIV screen 2007 Hepatitis C Screening 2007 Lipid Screening 2007 Hepatitis B vaccine (0-59 yrs) (1) 2008 Pneumococcal Vaccine: At-Risk 5-64yrs (1 of 2 - PCV) 1 Tetanus/Diphtheria/Pertussis Vaccines (1 - Tdap) 06/10 HPV test 2019 PAP Smear 2019 Covid-19 Vaccine (1 - 2023- season) 2024 Influenza (Flu) vaccine (1 o f 1 - Influenza standard series) 05/09/2024 Care Teams Device Processing Engineer Relationship Specialty Start Date End Date Emma Hernandez MD [address] [place] [address] PCP - General Family Medicine 11/29/22
--- OUTSIDE RECORDS SUMMARY | 2024-09-18 13:04 | XMS_ITS | Encounter Summary ---
Author Organization [facility] Address [address] [place] [address] Care Team Providers Care Naval Engineer Name Role Phone David Contreras Primary Care Provider Emma Hernandez MD Primary Care Provider Encounter Details Date Type Department Care Team (Late st Contact Info) Description 09/26/2022 Lab Requisition [facility] Pathology & Laboratory Medicine - [address] [address] Outr Resulting Lab, Provider Social History Tobacco Use Types Packs/Day Years Used Date Smoking Tobacco: Never Assessed Interpersonal Safety Answer Date Record ed Physically Hurt Never 04/09/2020 Verbally Threaten Not on file 04/09/2020 Comments Unknown Sex and Gender Information Value Date Recorded Sex Assigned at Not on file Legal Sex Female 18:46 EST Gender Identity Female 11/19/2019 8:57 EDT Sexual Orientation Not on file documented as of this encounter Plan of Treatment Not on file documented as of this encounter Procedures Procedure Name Priority Date/Time Associated Diagnosis Comments CHLAMYDIA/N. GONORRHOEAE AMPLIFIED NUCLEIC ACID Routine 09/26/2022 10:00 EST documented in this encounter Results * CHLAMYDIA/N. GONORRHOEAE AMPLIFIED RNA (09/26/2022 10:00 EST) Neisseria gonorrhoeae Result Negative Negative 09/27/2022 13:59 EST [facility] Chlamydia trachomatis Result Negative Negative 09/27/2022 13:59 EST [facility] Swab ENTIRE ENDOCERVIX / Unknown 09/26/2022 10:00 EST 09/26/2022 22:47 EST us Provider Outr Resulting Lab MICROBIOLOGY - GENER AL ORDERABLES Final Result [facility] [address] [place] [address] documented in this encounter Visit Diagnoses Not on filedocumented in this encounter Care Teams Naval Engineer Relationship Specialty Start Date End Date David Contreras PA [address] [place] [address] PCP - General 11/19/19 05/08/23 Emma Hernandez MD [address] [place] [id number] PCP - General Family Medicine - Primary Care 05/09/23 documented as of this encounter
--- OUTSIDE RECORDS SUMMARY | 2024-09-18 13:04 | XMS_ITS | Encounter Summary ---
Author Organization [facility] Address [address] [place] [address] Care Team Providers Care Loose Hand Packer Name Role Phone David Contreras Primary Care Provider Emma Hernandez MD Primary Care Provider Encounter Details Date Type Department Care Team (Late st Contact Info) Description 03/01/2020 Lab Requisition [facility] Pathology & Laboratory Medicine - [address] [address] David Contreras PA [address] [place] [address] Neoplasm of uncertain behavior of skin Social History Tobacco Use Types Packs/Day Years Used Date Smoking Tobacco: Never Assessed Comments Unknown Sex and Gender Information Value Date Recorded Sex Assigned at Not on file Legal Sex Female 18:46 EST Gender Identity Female 11/19/2019 8:57 EDT Sexual Orientation Not on file documented as of this encounter Plan of Treatment Not on file documented as of this encounter Procedures Procedure Name Priority Date/Time Associated Diagnosis Comments SURGICAL PATHOLOGY Today 02/29/2020 11 :30 EDT Neoplasm of uncertain behavior of skin documented in this encounter Results * SURGICAL PATHOLOGY (02/29/2020 11:30 EDT) Final Diagnosis A. SKIN OF BACK, LEFT LOWER, SHAVE BIOPSY: - Follicular cyst, infundibular type, with rupture, scar, and inflammation. See comment. 03/02/2020 10:23 [facility] at 1023 Attestation By the signature below, the attending physician certifies that they have 1) personally conducted a gross and/or microscopic examination of the described specimen(s), and/or personally interpreted the results of laboratory testing of the described specimen(s), and 2) personally rendered or confirmed the above diagnosis. 03/02/2020 10:23 [facility] at 1023 Diagnosis Comment There is no evidence of a melanocytic proliferation. 03/02/2020 10:23 [facility] Microscopic Description There is a cyst that is lined by stratified squamous epithelium that matures through a granular layer. The cyst is filled with laminated orthokeratin. Portions of the cyst wall are disrupted. The surrounding dermis is marked by fibrosis, granulation tissue formation, and inflammation. There are foreign body giant cells associated with liberated keratin. 03/02/2020 10:23 [facility] Clinical History Nevus, atypical; D48.5 03/02/2020 10:23 [facility] Gross Description A. Received in formalin labelled with proper patient identification (initials M, R) and L low back is a shave biopsy of a fuentes pink papule measuring 0.8 x 0.8 x 0.2 cm. There is a small fragment of attached funetes-white skin measuring 0.9 x 0.1 x 0.1 cm. The margins are inked black and the specimen is trisected and submitted entirely in A1. Bisi Freeman 03/01/2020 18:38 03/02/2020 10:23 [facility] Scanned Images 03/02/2020 10:23 [facility] Tissue TISSUE SPECIMEN FROM SKIN / Unknown 02/29/2020 11:30 EDT 03/01/2020 15:55 EDT us David KIRKPATRICK PATHOLOGY ORDERABLES Final R esult [facility] [address] [place] [address] documented in this encounter Visit Diagnoses Diagnosis Neoplasm of uncertain behavior of skin documented in this encounter Care Teams Loose Hand Packer Relationship Specialty Start Date End Date David Contreras PA [address] [place] [address] PCP - General 11/19/19 05/08/23 Emma Hernandez MD [address] [place] [id number] PCP - General Family Medicine - Primary Care 05/09/23 documented as of this encounter
--- OUTSIDE RECORDS SUMMARY | 2024-09-18 13:04 | XMS_ITS | Clinical Summary ---
Author Organization [facility] Address [address] [place] [address] Care Team Providers Care Division Operations Specialist Name Role Phone Emma Hernandez MD Primary Care Provider Social History Tobacco Use Types Packs/Day Years Used Date Smoking Tobacco: Never Assessed Interpersonal Safety Answer Date Record ed Physically Hurt Never 04/09/2020 Verbally Threaten Not on file 04/09/2020 Comments Unknown Sex and Gender Information Value Date Recorded Sex Assigned at Not on file Legal Sex Female 18:46 EST Gender Identity Female 11/19/2019 8:57 EDT Sexual Orientation Not on file Plan of Treatment Health Maintenance Due Date Last Done Comments Hepatitis B Vaccine (1 of 3 - 19+ 3-dose series) 06/10 COVID-19 Vaccine ( season) 2024 Hepatitis C Screen Completed 09/26/2022 Medical Devices Implanted Type Area Warehouse Administrative Assistant Device Identifier Shelf Expiration Date Model / Serial / Lot Implant Generic Iud Implant Generic Description:LIN IUD Procedures Procedure Name Priority Date/Time Associated Diagnosis Comments HEPATITIS C AB W REFLEX TO HCV RNA BY PCR Routine 09/26/2022 11:03 EST from Last 3 Months or Most Recently Relevant to Health Maintenance Results * HEPATITIS C AB W REFLEX TO HCV RNA BY PCR (09/26/2022 11:03 EST) Hep C Antibody Negative Negative 09/27/2022 9:56 EST [facility] Blood VENOUS BLOOD / Unknown 09/26/2022 11:03 EST 09/26/2022 17:29 EST us Provider Outr Resulting Lab CHEMISTRY & BLOOD GA S ORDERABLES Final Result [facility] [address] [place] [address] from Last 3 Months or Most Recently Relevant to Health Maintenance Insurance [facility] Care Teams Division Operations Specialist Relationship Specialty Start Date End Date Emma Hernandez MD [address] [place] [phone] PCP - General Family Medicine - Primary Care 05/09/23
--- OUTSIDE RECORDS SUMMARY | 2024-09-18 13:04 | XMS_ITS | Encounter Summary ---
Author Organization [facility] Address [address] [place] [address] Care Team Providers Care Load Out Worker Name Role Phone David Contreras Primary Care Provider [phone] Emma Hernandez MD Primary Care Provider Encounter Details Date Type Department Care Team (Late st Contact Info) Description 09/26/2022 Lab Requisition [facility] Pathology & Laboratory Medicine - [facility] [address] [place] [address] Outr Resulting Lab, Provider Social History Tobacco [...] Procedure Name Priority Date/Time Associated Diagnosis Comments HIV 1/2 ANTIGEN AND ANTIBODY, 4TH GENERATION Routine 09/26/2022 11:03 EST documented in this encounter Results * HIV 1/2 ANTIGEN AND ANTIBODY, 4TH GENERATION (09/26/2022 11:03 EST) HIV 1 and 2 Antibody/p24 Antigen, 4th Generation Negative Negative 09/27/2022 9:45 EST [facility] Comment:If acute HIV-1 infec tion is suspected in a high risk patient, submit plasma specimen for HIV-1 RNA quantitation test. Blood VENOUS BLOOD / Unknown 09/26/2022 11:03 EST 09/26/2022 17:29 EST Narrative [facility] - 09/27/2022 9:45 EST Fourth Generation assay performed on the Siemens Centaur XPT. us Provider Outr Resulting Lab IMMUNOLOGY AND SEROL OGY ORDERABLES Final Result [facility] [address] [place] [address] documented in this encounter Visit Diagnoses Not on filedocumented in this encounter Care Teams Load Out Worker Relationship Specialty Start Date End Date David Contreras PA [address] [place] [address] PCP - General 11/19/19 05/08/23 Emma Hernandez MD [address] [place] [address] PCP - General Family Medicine - Primary Care 05/09/23 documented as of this encounter
--- OUTSIDE RECORDS SUMMARY | 2024-09-18 13:04 | XMS_ITS | Encounter Summary ---
Author Organization [facility] Address [address] [place] [address] Care Team Providers Care Document Clerk Name Role Phone David Contreras Primary Care Provider [phone] Emma Hernandez MD Primary Care Provider Encounter Details Date Type Department Care Team (Late st Contact Info) Description 09/03/[address] [facility] Pathology & Laboratory Medicine - [address] [address] Outr Resulting Lab, Provider Social History Tobacco [...] Procedure Name Priority Date/Time Associated Diagnosis Comments ZZCOVID-19 TEST [facility] PCR Today 09/03/2021 8:56 EST COVID-19 TESTING Routine 09/03/2021 8:56 EST documented in this encounter Results * COVID-19 TEST [facility] PCR (09/03/2021 8:56 EST) Swab 09/03/2021 8:56 EST 09/03/2021 21:48 EST us Provider Outr Resulting Lab MICROBIOLOGY - GENER AL ORDERABLES Final Result Performing Organization Address [facility] de Phone Number [facility] [address] [place] [address] * COVID-19 TESTING (09/03/2021 8:56 EST) COVID-19 rt-PCR Result Negative Negative 09/04/2021 2:14 EST [facility] Comment: This test has not been FDA cleared or approved. This test has been authorized by FDA under an EUA for use by authorized laboratories. This test has been authorized only for detection of nucleic acid from 2019-nCoV, not for any other viruses or pathogens. This test is only authorized for the duration of the declaration that circumstances exist justifying the authorization of emergency use of in vitro diagnostic tests for detection and/or diagnosis of 2019-nCoV under section 564(b)(1) of Act, 21 U.S.C ?? 360bbb-3(b) (1), unless the authorization is terminated or revoked sooner. Negative results do not preclude 2019-nCoV infection and should not be used as the sole basis for treatment or other patient management decisions. Negative results must be combined with clinical observations, patient history, and epidemiological information. Performed on the Loyal[employer]her Fusion instrument Performing Lab [place] [facility] 09/04/2021 2:14 EST [facility] Swab 09/03/2021 8:56 EST 09/03/2021 21:48 EST us Provider Outr Resulting Lab MICROBIOLOGY - GENER AL ORDERABLES Final Result Performing Organization Address City/[facility]/ZIP Co de Phone Number [facility] [address] [place] [address] documented in this encounter Visit Diagnoses Not on filedocumented in this encounter Care Teams Document Clerk Relationship Specialty Start Date End Date David Contreras PA [address] [place] [address] PCP - General 11/19/19 05/08/23 Emma Hernandez MD [address] [place] [id number] PCP - General Family Medicine - Primary Care 05/09/23 documented as of this encounter
--- OUTSIDE RECORDS SUMMARY | 2024-09-18 13:04 | XMS_ITS | Encounter Summary ---
Author Organization [facility] Address [address] [place] [address] Care Team Providers Care Highway Painter Helper Name Role Phone Emma Hernandez MD Primary Care Provider Encounter Details Date Type Department Care Team (Late st Contact Info) Description 05/19/2023 Lab Requisition [facility] Pathology & Laboratory Medicine - [facility] [address] [place] [address] Aziza Gomes [address] [place] [address] [place] [phone] Encounter for insertion of intrauterine contraceptive device Social History Tobacco Use Types Packs/Day Years [...] Date/Time Associated Diagnosis Comments SURGICAL PATHOLOGY Today 05/19/2023 10 :45 EDT Encounter for insertion of intrauterine contraceptive device documented in this encounter Results * SURGICAL PATHOLOGY (05/19/2023 10:45 EDT) Note to Patient The following pathology results have been interpreted by your pathologist and may be available to you before your health provider has had the opportunity to review them. Please allow time for your provider to receive these results and explore management options, if applicable. 05/23/2023 19:04 [facility] Final Diagnosis A. INTRAUTERINE CONTENTS, EVACUATION: - Necrotic tissue and abundant hemorrhage, consistent with infarcted decidua. See comment. 05/23/2023 19:04 [facility] Diagnosis Comment While no viable-appearing chorionic villi or trophoblastic tissue identified, the findings are compatible with necrotic decidua. Clinical correlation is essential.. 05/23/2023 19:04 [facility] Attestation There was significant resident/fellow involvement in the diagnostic evaluation of this case. By the signature below, the attending physician certifies that they have personally conducted a gross and/or microscopic examination of the described specimens and rendered or confirmed the above diagnosis. 05/23/2023 19:04 [facility] at [address] Clinical History ? retained placental tissue 05/23/2023 19:04 [facility] Gross Description A. Received in formalin labelled with proper patient identification (initials R, M) and not otherwise specified is an aggregate of fuentes-brown tissue fragments (2.5 x 2.5 x 1.0 cm). No villous tissue, gestational sac or tissue is identified. Entirely submitted in A1 to A4. LINETTE FAITH MD 05/20/2023 11:08 05/23/2023 19:04 [facility] Resident/Montez w: Linette Faith MD 05/23/2023 19:04 [facility] Performing Lab [facility] 05/23/2023 19:04 [facility] Scanned Images 05/23/2023 19:04 [facility] Tissue PRODUCTS OF CONCEPTION TISSUE SPECIMEN / Unknown 05/19/2023 10:45 EDT 05/19/2023 19:55 EDT Aziza Eliseo PATHOLOGY ORDERABLES Final Resul t [facility] [address] [place] [address] documented in this encounter Visit Diagnoses Diagnosis Encounter for insertion of intrauterine contraceptive device documented in this encounter Care Teams Highway Painter Helper Relationship Specialty Start Date End Date Emma Hernandez MD [address] [place] [id number] PCP - General Family Medicine - Primary Care 05/09/23 documented as of this encounter
--- OUTSIDE RECORDS SUMMARY | 2024-09-18 13:04 | XMS_ITS | Encounter Summary ---
Author Organization [facility] Address [address] [place] [address] Care Team Providers Care Justowriter Operator Name Role Phone David Contreras Primary Care Provider Emma Hernandez MD Primary Care Provider Encounter Details Date Type Department Care Team (Late st Contact Info) Description 04/25/2021 Lab Requisition [facility] Pathology & Laboratory Medicine - [address] [address] Outr Resulting Lab, Provider Social History Tobacco [...] Comments ZZCOVID-19 TEST [facility] PCR Today 04/25/2021 7:47 EDT COVID-19 TESTING Routine 04/25/2021 7:47 EDT documented in this encounter Results * COVID-19 TEST [facility] PCR (04/25/2021 7:47 EDT) Swab ENTIRE NASOPHARYNX / Unknown 04/25/2021 7:47 EDT 04/25/2021 16:34 EDT us Provider Outr Resulting Lab MICROBIOLOGY - GENER AL ORDERABLES Final Result Performing Organization Address [facility] Co de Phone Number [facility] [address] [place] [address] * COVID-19 TESTING (04/25/2021 7:47 EDT) COVID-19 rt-PCR Result Negative Negative 04/25/2021 21:19 EDT [facility] Comment: This test [...] history, and epidemiological information. Performed on the [employer]her Fusion instrument Performing Lab [place] [facility] 04/25/2021 21:19 EDT [facility] Swab 04/25/2021 7:47 EDT 04/25/2021 16:34 EDT us Provider Outr Resulting Lab MICROBIOLOGY - GENER AL ORDERABLES Final Result Performing Organization Address [facility]/ZIP Co de Phone Number [facility] [address] [place] [address] documented in this encounter Visit Diagnoses Not on filedocumented in this encounter Care Teams Justowriter Operator Relationship Specialty Start Date End Date David Contreras PA [address] [place] [address] PCP - General 11/19/19 05/08/23 Emma Hernandez MD [address] [place] [address] PCP - General Family Medicine - Primary Care 05/09/23 documented as of this encounter
--- OUTSIDE RECORDS SUMMARY | 2024-09-18 13:04 | XMS_ITS | Encounter Summary ---
Author Organization [facility] Address [address] [place] [address] Care Team Providers Care Family Service Counselor Name Role Phone David Contreras Primary Care Provider [phone] Emma Hernandez MD Primary Care Provider Encounter Details Date Type Department Care Team (Late st Contact Info) Description 09/26/2022 Lab Requisition [facility] Pathology & Laboratory Medicine - [address] [address] Outr Resulting Lab, Provider Social History Tobacco [...] Procedure Name Priority Date/Time Associated Diagnosis Comments RUBELLA IGG ANTIBODY Routine 09/26/2022 11:03 EST VARICELLA IGG ANTIBODY Routine 09/26/2022 11:03 EST documented in this encounter Results * VARICELLA IGG ANTIBODY (09/26/2022 11:03 EST) Varicella IgG Ab Positive See Note 09/27/2022 10:15 EST [facility] Comment:Presence of detectab le Varicella Zoster virus IgG antibodies. Blood VENOUS BLOOD / Unknown 09/26/2022 11:03 EST 09/26/2022 17:29 EST us Provider Outr Resulting Lab IMMUNOLOGY AND SEROL OGY ORDERABLES Final Result Performing Organization Address [facility] Co de Phone Number [facility] [address] [place] [address] * RUBELLA IGG ANTIBODY (09/26/2022 11:03 EST) Rubella IgG Ab Negative See Note 09/27/2022 10:16 EST [facility] Comment:Sample is considered negative for IgG antibodies to Rubella virus. A negative result presumes that immunity has not been acquired. If exposure to Rubella virus is suspected despite a negative finding, a second specimen should be collected and tested for Rubella IgG Ab one or two weeks later. Blood VENOUS BLOOD / Unknown 09/26/2022 11:03 EST 09/26/2022 17:29 EST us Provider Outr Resulting Lab CHEMISTRY & BLOOD GA S ORDERABLES Final Result Performing Organization Address [facility] de Phone Number [facility] [address] [place] [address] documented in this encounter Visit Diagnoses Not on filedocumented in this encounter Care Teams Family Service Counselor Relationship Specialty Start Date End Date David Contreras PA [address] [place] [address] PCP - General 11/19/19 05/08/23 Emma Hernandez MD [address] [place] [address] PCP - General Family Medicine - Primary Care 05/09/23 documented as of this encounter
--- OUTSIDE RECORDS SUMMARY | 2024-09-18 13:04 | XMS_ITS | Referral Summary ---
Author Organization [facility] Address [address] [place] [address] Care Team Providers Care Truck Crane Operator Helper Name Role Phone Emma Hernandez MD [...] Orientation Not on file Plan of Treatment Not on file Medical Devices Implanted Type Area Database Coordinator Device Identifier Shelf Expiration Date Model / [...] C Antibody Negative Negative 09/27/2022 9:56 EST [facility] Blood VENOUS BLOOD / Unknown 09/26/2022 11:03 EST 09/26/2022 17:29 EST us Provider Outr Resulting Lab CHEMISTRY & BLOOD GA S ORDERABLES Final Result [facility] [address] [place] [phone] from Last 3 Months or Most Recently Relevant to Health Maintenance Insurance [facility] Care Teams Truck Crane Operator Helper Relationship Specialty Start Date End Date Emam Hernandez MD [address] [place] [address] PCP - General Family Medicine - Primary Care 05/09/23
--- OUTSIDE RECORDS SUMMARY | 2024-09-18 13:04 | XMS_ITS | Encounter Summary ---
Author Organization [facility] [place] [address] Care Team Providers Care Computing Consultant Name Role Phone Emma Hernandez MD Primary Care Provider [phone] Reason for Visit * Reason Comments Follow-up Encounter Details Date Type Department Care Team (Late st Contact Info) Description 01/14/2024 1:20 PM EDT Office [place] [address] Paige Sprague APRN [facility] [place] [address] Encounter for screening mammogram for breast cancer; Breast cancer screening other than mammogram Social History Tobacco Use Types Packs/Day Years Used Date Smoking Tobacco: Every Day Smokeless Tobacco: Never Sex and Gender Information Value Date Recorded Sex Assigned at Not on file Gender Identity Not on file Sexual Orientation Not on file documented as of this encounter Progress Notes * Paige Sprague APRN - 01/14/2024 1:20 PM EDT Ms. García is a 33 y.o. year-old patient who I am following for high risk. Sujata felt a right breast lump in July of 2019, ultrasound at the time was negative. She denies any skin changes, new breast masses, breast trauma, prior breast surgery or nipple discharge. Imaging performed (bilateral mammogram with focused ultrasound right) at [facility] on 07/19/19 was interpreted as Category 1. She has also had breast imaging performed (ultrasound) on the right at age 24 and 25 which was significant for a cyst in the right upper outer quadrant. She does do occasional self-breast exams. Weight stable She has no new or concerning complaints of fatigue, cardiovascular or respiratory symptoms. All other ROS are negative. She has been feeling well. No change in personal or family history. Work is going well. Her son anddaughter are thrilled with new sister (9 months). She recently stopped breast feeding. 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 She did have a mastitis on the right. Menarche began at 13. She has an IUD. She does note cyclical swelling and tenderness mostly of right breast. Family History: Maternal GGMA ovarian ca, Maternal GMA with breast ca, Paternal aunt from breast ca (diagnosed in her 30's). Mother with fibrocystic breast disease. 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 She does smoke 1-2 cigarettes per day. Past Medical History: TMJ Past Surgical History: Noncontributory Physical Exam: She looks well and is in no apparent distress. Her skin is anicteric with good turgor. Sclera are anicteric. Her head and neck are without masses or adenopathy. Her arms have good ROM without any evidence of lymphedema. Breasts are engorged. Her breasts are symmetric. Her nipples are mildly inverted, L > R. There is no axillary adenopathy on the right or the left. There are no skin changes or dimpling noted in either breast. The right breast is notable for generally heterogenous breast tissue, without discrete masses. I doappreciate a mound of fibrocystic tissue in the upper outer quadrant. Her left breast exam is similar in character to her right breast, without discrete masses. Assessment: Clinical breast exam notable for fibrocystic breast tissue without discrete masses. Plan: I have discussed my assessment and recommendations with Ms. García to include occasional self-breast exams and annual clinical breast exams. I have encouraged her to take vitamin d 1,000 IU daily. We discussed screening mammography to start next year. Paige Sprague APRN documented in this encounter Plan of Treatment Scheduled Orders Name Type Priority Associated Diagnoses Orde r Schedule Mammo Screening Cad and Benedicto Bilateral Imaging Routine Encounter for screening mammogram for breast cancer Expected: 01/13/2025, Expires: 07/16/2025 documented as of this encounter Visit Diagnoses Diagnosis Encounter for screening mammogram for breast cancer Breast cancer screening other than mammogram documented in this encounter Care Teams Computing Consultant Relationship Specialty Start Date End Date Emma Hernandez MD [address] [place] [id number] PCP - General Family Medicine 11/29/22 documented as of this encounter
--- OUTSIDE RECORDS SUMMARY | 2024-09-18 13:04 | XMS_ITS | Encounter Summary ---
Author Organization [facility] Address [address] [place] [address] Care Team Providers Care Despatching And Receiving Clerk Name Role Phone Unknown, Provider Primary Care Provider Unava ilable Encounter Details Date Type Department Care Team (Late st Contact Info) Description 05/26/2017 Results Only [facility] [phone] Rosanna Hutchison MD [facility] [place], [place] [id number] Social History Tobacco Use Types Packs/Day Years [...] Procedure Name Priority Date/Time Associated Diagnosis Comments PAP TEST- RESULT ONLY Routine 05/26/2017 0:00 EDT documented in this encounter Results * PAP TEST- RESULT ONLY (05/26/2017 0:00 EDT) Pathology Report: CYTOPATHOLOGY REPORT Reports generated via electronic interface contain original data; however they are lacking the format of the original report. Caution should be taken when reading/interpreti ng unformatted reports. Name: ? SUJATA MCKEON ? Accession #: ? [id number] : ? 1990 (Age: 26) ??F ?Collect Date: ? 05/26/2017 Location: ? [facility] ? Receive Date: ? 05/27/2017 Provider: ?ROSANNA HUTCHISON MD Copy to: ?JESSICA KIRKPATRICK ? Specimen/Source: ?Pap Test, Cervix, ThinPrep Imaging System with manual evaluation Last Menstrual Period: ? Hormonal/Contracep tive Status: ? None ? SPECIMEN ADEQUACY ? Satisfactory for Evaluation - transformation zone component present GENERAL CATEGORIZATION ? Negative for Intraepithelial Lesion or Malignancy ? Document reviewed and electronically signed by: ? VIVIANE Rayo(ASCP) ? Report Date: ??06/04/2017 12:33 End of Report [facility] 05/26/2017 05/27/2017 us Rosanna Hutchison MD PATHOLOGY ORDERABLES Final Res ult [facility] [address] [place] [address] documented in this encounter Visit Diagnoses Not on filedocumented in this encounter Care Teams Despatching And Receiving Clerk Relationship Specialty Start Date End Date Unknown, Provider, PCP - General 03/24/09 11/18/19 documented as of this encounter
--- OUTSIDE RECORDS SUMMARY | 2024-09-18 13:04 | XMS_ITS | Encounter Summary ---
Author Organization [facility] Address [address] [place] [address] Care Team Providers Care Vessel Ordinary Seaman Name Role Phone Unknown, Provider Primary Care Provider Unava ilable Encounter Details Date Type Department Care Team ([facility] st Contact Info) Description 12/23/2018 Results Only [facility] [phone] Moreno Bell MD [address] [place] [id number] Social History Tobacco Use Types Packs/Day Years [...] Diagnosis Comments PAP TEST- RESULT ONLY Routine 12/23/2018 0:00 EDT documented in this encounter Results * PAP TEST- RESULT ONLY (12/23/2018 0:00 EDT) Pathology Report: CYTOPATHOLOGY REPORT Reports generated via electronic interface contain original data; however they are lacking the format of the original report. Caution should be taken when reading/interpreti ng unformatted reports. Name: ? SUJATA MCKEON ? Accession #: ? [id number] : ? 1990 (Age: 28) ??F ?Collect Date: ? 12/23/2018 Location: ? [facility] ? Receive Date: ? 12/25/2018 Provider: ?MORENO BELL MD Copy to: ?JESSICA KIRKPATRICK ? Specimen/Source: ?Pap Test, Cervix, ThinPrep Imaging System with manual evaluation Last Menstrual Period: ? 12/11/2018 Other: ? Post coital bleeding ? SPECIMEN ADEQUACY ? Satisfactory for Evaluation - transformation zone component present GENERAL CATEGORIZATION ? Negative for Intraepithelial Lesion or Malignancy ? Document reviewed and electronically signed by: ? Ruben Morris, VIVIANE(ASCP) ? Report Date: ??12/29/2018 15:19 End of Report [facility] 12/23/2018 12/25/2018 us Moreno Bell MD PATHOLOGY ORDERABLES Final Resul t [facility] [address] [place] [address] documented in this encounter Visit Diagnoses Not on filedocumented in this encounter Care Teams Vessel Ordinary Seaman Relationship Specialty Start Date End Date Unknown, Provider, PCP - General 03/24/09 11/18/19 documented as of this encounter
--- OUTSIDE RECORDS SUMMARY | 2024-09-18 13:04 | XMS_ITS | Encounter Summary ---
Author Organization [facility] Address [address] [place] [address] Care Team Providers Care Shuttle Operator Name Role Phone Unknown, Provider Primary Care Provider Unava ilable Encounter Details Date Type Department Care Team (Latest Contact Info) Description 03/04/2019 15:59 EDT - 03/04/2019 23:59 EDT Hospital Encounter [address] [address] Unknown, Provider, Discharge Disposition: Home or Self Care Social History Tobacco Use Types Packs/Day Years Used Date Smoking Tobacco: Never Assessed Comments Unknown Sex and Gender Information Value Date Recorded Sex Assigned at Not on file Legal Sex Female 18:46 EST Gender Identity Female 11/19/2019 8:57 EDT Sexual Orientation Not on file documented as of this encounter Discharge Disposition Disposition Code Departure Means Destination Home or Self Long Term documented in this encounter Plan of Treatment Not on file documented as of this encounter Visit Diagnoses Not on filedocumented in this encounter Care Teams Shuttle Operator Relationship Specialty Start Date End Date Unknown, Provider, PCP - General 03/24/09 11/18/19 documented as of this encounter
--- OUTSIDE RECORDS SUMMARY | 2024-09-18 13:04 | XMS_ITS | Encounter Summary ---
Author Organization [facility] Address [address] [place] [address] Care Team Providers Care Convenience Recycle Center Tech Name Role Phone Unknown, Provider Primary Care Provider Unava ilable Encounter Details Date Type Department Care Team (Late st Contact Info) Description 03/04/2019 Results Only [facility] [phone] Selene Stark MD [address] [place] [address] Social History Tobacco Use Types Packs/Day Years [...] Priority Date/Time Associated Diagnosis Comments SURGICAL PATHOLOGY Routine 03/04/2019 17 :57 EDT documented in this encounter Results * SURGICAL PATHOLOGY (03/04/2019 17:57 EDT) Pathology Report: SURGICAL PATHOLOGY REPORT Reports generated via electronic interface contain original data; however they are lacking the format of the original report. Caution should be taken when reading/interpret ing unformatted reports. Name: ? SUJATA MCKEON ? Accession #: ? [id number] ? : ? 1990 (Age: 28) ??F ? Collect Date: ? 03/04/2019 ? Location: ? [facility] ? Receive Date: ? 03/04/2019 ? Provider: SELENE STARK MD Copy to: JESSICA KIRKPATRICK ? Final Pathologic Diagnosis: ENDOCERVIX, CURETTAGE: - Abundant cervical mucus with acute inflammation. - Scant admixed benign endocervical epithelium. See comment. Comment: Deeper sections have been evaluated. (Dr. Preston) Document reviewed and electronically signed by: TELMA PRESTON MD Report ??Date: 03/09/2019 10:43 By the signature above, the attending physician certifies that he/she has personally conducted a gross and/or microscopic examination of the described specimens and rendered or confirmed the above diagnosis. Specimen(s) Received: ECC Clinical History: LMP: 02/08/19; fax results to [phone] Gross Description: ? Received in formalin labelled with proper patient identification (initials M, R) and A. ECC is an aggregate of translucent mucinous material (1.1 x 1.0 x 0.1 cm). Submitted in toto in Narinder Valles 03/05/2019 8:20 AM End of Report [facility] 03/04/2019 17:5 7 EDT 03/04/2019 17:57 EDT us Selene Stark MD PATHOLOGY ORDERABLES Final Resul t [facility] [address] [place] [address] documented in this encounter Visit Diagnoses Not on filedocumented in this encounter Care Teams Convenience Recycle Center Tech Relationship Specialty Start Date End Date Unknown, Provider, PCP - General 03/24/09 11/18/19 documented as of this encounter
--- OUTSIDE RECORDS SUMMARY | 2024-09-18 13:04 | XMS_ITS | Encounter Summary ---
Author Organization [facility] Address [address] [place] [address] Care Team Providers Care Pastoral Ministries Professor Name Role Phone David Contreras Primary Care Provider Emma Hernandez MD Primary Care Provider Encounter Details Date Type Department Care Team (Late st Contact Info) Description 10/02/2021 Lab Requisition [facility] Pathology & Laboratory Medicine - [address] [address] Naya Mason, IRONING MACHINE OPERATOR [address] [place] [address] Encounter for other general examination Social History Tobacco Use Types Packs/Day Years [...] Name Priority Date/Time Associated Diagnosis Comments PAP TEST Today 10/01/2021 9:00 EST Encounter for other general examination HPV DNA DETECTION WITH GENOTYPING, PCR Today 10/01/2021 9:00 EST Encounter for other general examination documented in this encounter Results * HUMAN PAPILLOMAVIRUS (HPV) DETECTION-HIGH RISK TYPES (10/01/2021 9:00 EST) HPV other High Risk types, PCR Negative Negative 10/12/2021 10:22 [facility] Comment:No E6 or E7 mRNA is detected from HPV types 16,18,31,33,35,39,45,51,52,56,58,59,66, and 68 by cessation systems outreach specialist mediated amplification. Papanicolaou smear specimen (specimen) CERVIX UTERI STRUCTURE / Unknown 10/01/2021 9:00 EST 10/10/2021 11:49 EST us Naya Mason APRN MICROBIOLOGY - GENERAL OR DERABLES Final Result [facility] [address] [place] [address] * PAP TEST (10/01/2021 9:00 EST) Specimens A. Cervix and/or Endocervix , ThinPrep Imaging System with Manual Evaluation 10/12/2021 10:22 [facility] Specimen Adequacy Satisfactory for Evaluation - transformation zone component present 10/12/2021 10:22 [facility] General Categorization Negative for intraepithelial lesion or malignancy 10/12/2021 10:22 [facility] Attestation . 10/12/2021 10:22 [facility] at 1022 Clinical History See below 10/12/19 10:22 [facility] HPV The result for the Human Papillomavirus (HPV) Detection-High Risk Types is Negative. No E6 or E7 mRNA is detected from HPV types 16,18,31,33,35,39 ,45,51,52,56,58,5 9,66, and 68 by cessation systems outreach specialist mediated amplification.Vy ting was performed on specimen [id number] and was resulted on 10/12/2021 1001 EST by CANDIDO, LAB INSTRUMENT RESULTS IN 10/12/2021 10:22 [facility] Performing Lab [facility] 10/12/2021 10:22 EST [facility] Scanned Images 10/12/2021 10:22 EST [facility] Papanicolaou smear specimen (specimen) CERVIX UTERI STRUCTURE / Unknown 10/01/2021 9:00 EST 10/02/2021 10:16 EST us Naya Mason IRONING MACHINE OPERATOR PATHOLOGY ORDERABLES Maribeth l Result [facility] [address] [place] [address] documented in this encounter Visit Diagnoses Diagnosis Encounter for other general examination documented in this encounter Care Teams Pastoral Ministries Professor Relationship Specialty Start Date End Date David Contreras PA [address] [place] [address] PCP - General 11/19/19 05/08/23 Emma Hernandez MD [address] [place] [address] PCP - General Family Medicine - Primary Care 05/09/23 documented as of this encounter
--- OUTSIDE RECORDS SUMMARY | 2024-09-18 13:04 | XMS_ITS | Encounter Summary ---
Author Organization [facility] Address [address] [place] [address] Care Team Providers Care Sand Sifter Name Role Phone Unknown, Provider Primary Care Provider Unava ilable Encounter Details Date Type Department Care Team (Late st Contact Info) Description 05/24/2014 Results Only [facility] [phone] Daniel Sue, [address] [address] Social History Tobacco Use Types Packs/Day Years [...] Diagnosis Comments PAP TEST- RESULT ONLY Routine 05/24/2014 0:00 EDT documented in this encounter Results * PAP TEST- RESULT ONLY (05/24/2014 0:00 EDT) Pathology Report: CYTOPATHOLOGY REPORT Reports generated via electronic interface contain original data; however they are lacking the format of the original report. Caution should be taken when reading/interpreti ng unformatted reports. Name: ? SUJATA MCKEON ? Accession #: ? [id number] : ? 1990 (Age: 23) ??F ?Collect Date: ? 05/24/2014 Location: ? [facility] ? Receive Date: ? 05/25/2014 Provider: ?DANIEL SUE CNM Copy to: ? Specimen/Source: ?Pap Test, Cervix/Endocervix, ThinPrep Imaging System with manual evaluation Last Menstrual Period: ? 03/19/14 Menstrual/Pregnanc y Status: ? SPECIMEN ADEQUACY ? Satisfactory for Evaluation - transformation zone component present GENERAL CATEGORIZATION ? Negative for Intraepithelial Lesion or Malignancy INTERPRETATION ? Fungal organisms present morphologically consistent with Oksana species. ? Document reviewed and electronically signed by: ? Ruben Morris, VIVIANE(ASCP) ? Report Date: ??05/31/2014 13:58 End of Report [facility] 05/24/2014 05/25/2014 us Daniel Sue CNM PATHOLOGY ORDERABLES F inal Result [facility] [address] [place] [address] documented in this encounter Visit Diagnoses Not on filedocumented in this encounter Care Teams Sand Sifter Relationship Specialty Start Date End Date Unknown, Provider, PCP - General 03/24/09 11/18/19 documented as of this encounter
--- OUTSIDE RECORDS SUMMARY | 2024-09-18 13:04 | XMS_ITS | Encounter Summary ---
Author Organization [facility] Address [address] [place] [address] Care Team Providers Care Wire Spooler Name Role Phone David Contreras Primary Care Provider + [phone] Reason for Referral * Radiology Services (Routine) - Closed Specialty Diagnoses / Procedures Referred By Contac alison Referred To Contact Radiology Diagnoses TMJ (dislocation of temporomandibular joint) Procedures MR TEMPOROMANDIBULAR JNTS WO CONTRAST Jim Curtis DDS Phone: tel: fax: Referral ID Status Reason Start Date Expiration Date Visits Re quested Visits Authorized [id number] Closed 11/03/2019 1 1 Reason for Visit * Radiology Services (Routine) - Closed Specialty Diagnoses / Procedures Referred By Contac alison Referred To Contact Radiology Diagnoses TMJ (dislocation of temporomandibular joint) Procedures MR TEMPOROMANDIBULAR JNTS WO CONTRAST Jim Curtis DDS Phone: tel: fax: Referral ID Status Reason Start Date Expiration Date Visits Re quested Visits Authorized [id number] Closed 11/03/2019 1 1 Encounter Details Date Type Department Care Team (Latest Contact Info) Description 11/21/2019 12:34 EDT - 11/21/2019 23:59 EDT Hospital [facility]counter [facility] - [facility] [place] [address] [place] [address] TMJ (dislocation of temporomandibular joint) Discharge Disposition: Home or Self Care Social [...] Code Departure Means Destination Home or Self Care documented in this encounter Plan of Treatment Not on file documented as of this encounter Procedures Procedure Name Priority Date/Time Associated Diagnosis Comments MR TEMPOROMANDIBULAR JNTS WO CONTRAST Routine 11/21/2019 13:22 EDT TMJ (dislocation of temporomandibular joint) documented in this encounter Results * MR TEMPOROMANDIBULAR JNTS WO CONTRAST (11/21/2019 13:22 EDT) Anatomical Region Laterality Modality Head Magnetic Resonan ce 11/22/2019 10:2 2 EDT Impressions 11/22/2019 10:22 EDT Advanced degenerative changes in the temporomandibular joints bilaterally with flattening of the condylar heads, along with flattening and increased signal intensity of the articular discs. There is normal position of the articular discs in both open and closed mouth positions. I have personally reviewed the images and the above interpretation and agree with the findings. Narrative 11/22/2019 10:22 EDT EXAM: MRI TMJ WO CONTRAST HISTORY: bilateral TMJ oseteoarthritis R TMJ arthralgia TECHNIQUE: MRI of the temporomandibular joints without contrast. Structured report code: NR.MR54 COMPARISON: None. FINDINGS: RIGHT TMJ: There is significant thinning and increased signal intensity of the articular disc. Small joint effusion. Advanced degenerative changes with flattening of the condylar head and mild erosive changes The articular disc is normally positioned in both open- and closed-mouth positions. LEFT TMJ: There is significant thinning and increased signal intensity of the articular disc. Small joint effusion. Advanced degenerative changes with flattening of the condylar head. The articular disc is normally positioned in both open- and closed-mouth positions. PARANASAL SINUSES: Predominantly clear. ORBITS: Visible portions of the orbits are within normal limits. NASOPHARYNX: No mass or concerning signal abnormality. SKULL BASE: No concerning marrow signal abnormality. TYMPANOMASTOID CAVITIES: No abnormality. VISIBLE INTRACRANIAL CONTENTS: Unremarkable. VESSELS: The flow voids are normal. Procedure Note Vince Woodward MD - 11/22/2019 EXAM: MRI TMJ WO CONTRAST HISTORY: bilateral TMJ oseteoarthritis R TMJ arthralgia TECHNIQUE: MRI of the temporomandibular joints without contrast.Structured report code: NR.MR54 COMPARISON: None. FINDINGS: RIGHT TMJ: There is significant thinning and increased signal intensity ofthe articular disc. Small joint effusion. Advanced degenerative changeswith flattening of the condylar head and mild erosive changes Thearticular disc is normally positioned in both open- and closed-mouthpositions. LEFT TMJ: There is significant thinning and increased signal intensity ofthe articular disc. Small joint effusion. Advanced degenerative changeswith flattening of the condylar head. The articular disc is normallypositioned in both open- and closed-mouth positions. PARANASAL SINUSES: Predominantly clear. ORBITS: Visible portions of the orbits are within normal limits. NASOPHARYNX: No mass or concerning signal abnormality. SKULL BASE: No concerning marrow signal abnormality. TYMPANOMASTOID CAVITIES: No abnormality. VISIBLE INTRACRANIAL CONTENTS: Unremarkable. VESSELS: The flow voids are normal. IMPRESSION Advanced degenerative changes in the temporomandibular joints bilaterallywith flattening of the condylar heads, along with flattening and increasedsignal intensity of the articular discs. There is normal position of thearticular discs in both open and closed mouth positions. I have personally reviewed the images and the above interpretation andagree with the findings. Jim Curtis DD IM MRI ORDERABLES Final Result documented in this encounter Visit Diagnoses Diagnosis TMJ (dislocation of temporomandibular joint) Closed dislocation of jaw documented in this encounter Care Teams Wire Spooler Relationship Specialty Start Date End Date David Contreras PA [address] [place] [address] PCP - General 11/19/19 05/08/23 documented as of this encounter
--- OUTSIDE RECORDS SUMMARY | 2024-09-18 13:04 | XMS_ITS | Encounter Summary ---
Author Organization [facility] Address [address] [place] [address] Care Team Providers Care Oracle E Business Developer Name Role Phone Emma Hernandez MD Primary Care Provider Encounter Details Date Type Department Care Team (Late st Contact Info) Description 05/19/2023 Lab Requisition [facility] Pathology & Laboratory Medicine - [facility] [address] [place] [address] Outr Resulting Lab, Provider Social History Tobacco [...] Comments CHLAMYDIA/N. GONORRHOEAE AMPLIFIED NUCLEIC ACID Routine 05/19/2023 10:45 EDT documented in this encounter Results * CHLAMYDIA/N. GONORRHOEAE AMPLIFIED RNA (05/19/2023 10:45 EDT) Neisseria gonorrhoeae Result Negative Negative 05/20/2023 17:30 EDT [facility] Chlamydia trachomatis Result Negative Negative 05/20/2023 17:30 EDT [facility] Urine URINE / Unknown 05/19/2023 1 0:45 EDT 05/20/2023 9:16 EDT Narrative [facility] - 05/20/2023 17:30 EDT A first catch urine specimen is acceptable for detection of Gonorrhea and Chlamydia, but might detect up to 10% fewer infections when compared with vaginal and endocervical swab samples. us Provider Outr Resulting Lab MICROBIOLOGY - GENER AL ORDERABLES Final Result [facility] [address] [place] [address] documented in this encounter Visit Diagnoses Not on filedocumented in this encounter Care Teams Oracle E Business Developer Relationship Specialty Start Date End Date Emma Hernandez MD [address] [place] [address] PCP - General Family Medicine - Primary Care 05/09/23 documented as of this encounter
--- OUTSIDE RECORDS SUMMARY | 2024-09-18 13:04 | XMS_ITS | Encounter Summary ---
Author Organization [facility] [place] [address] Care Team Providers Care Director Of Extension Work Name Role Phone Emma Hernandez MD Primary Care Provider Encounter Details Date Type Department Care Team (Latest Contact Info) Description 01/29/2023 Travel Social History Tobacco Use Types Packs/Day Years Used Date Smoking Tobacco: Every Day Smokeless Tobacco: Never Comments Yes Sex and Gender Information Value Date Recorded Sex Assigned at Not on file Gender Identity Not on file Sexual Orientation Not on file documented as of this encounter Plan of Treatment Not on file documented as of this encounter Visit Diagnoses Not on filedocumented in this encounter Care Teams Director Of Extension Work Relationship Specialty Start Date End Date Emma Hernandez MD [address] [place] [address] PCP - General Family Medicine 11/29/22 documented as of this encounter
--- OUTSIDE RECORDS SUMMARY | 2024-09-18 13:04 | XMS_ITS | Encounter Summary ---
Author Organization [facility] Address [address] [place] [address] Care Team Providers Care Charge Account Clerk Name Role Phone David Contreras Primary Care Provider Encounter Details Date Type Department Care Team (Latest Contact Info) Description 11/19/2019 Travel Social History Tobacco Use Types Packs/Day [...] on filedocumented in this encounter Care Teams Charge Account Clerk Relationship Specialty Start Date End Date David Contreras PA [address] [place] [address] PCP - General 11/19/19 05/08/23 documented as of this encounter
--- OUTSIDE RECORDS SUMMARY | 2024-09-18 13:04 | XMS_ITS | Encounter Summary ---
Author Organization [facility] Address [address] [place] [address] Care Team Providers Care Logging Superintendent Name Role Phone Unknown, Provider Primary Care Provider Yonny ilcollins Encounter Details Date Type Department Care Team (Late st Contact Info) Description 03/22/2009 Orders Only [facility] Laboratory Services - [facility] [address] [place] [address] Sujata Mejia MD [address] [place] [phone] Social History Tobacco Use Types Packs/Day Years [...] Procedure Name Priority Date/Time Associated Diagnosis Comments CYTOPATHOLOGY Routine 03/22/2009 0:00 EDT documented in this encounter Results * CYTOPATHOLOGY (03/22/2009 0:00 EDT) Pathology Report: CYTOPATHOLOGY REPORT ? Reports generated via electronic interface contain original data; ? however they are lacking the format of the original report. ? Caution should be taken when reading/interpreti ng unformatted reports. ? Name: ? WAYNE, SUJATA ? Accession #: ? [id number] ? : ? 1990 (Age: 18) ??F ?Collect Date: ? 03/22/2009 ? Location: ? [facility] ? Receive Date: ? 03/24/2009 ? Provider: ?SUJATA JULIANN MD ? Copy to: ? Specimen/Source: ?Pap Test, Vagina/Cervix/Endo cervix, ThinPrep Imaging ? System with manual evaluation ? Last Menstrual Period: ? 07/01/09 ? Other: ? Additional clinical information: Well adult ? HPVA - HPV testing requested if ASC-US on the current ThinPrep Pap test. ? SPECIMEN ADEQUACY ? Satisfactory for Evaluation ? - transformation zone component present ? GENERAL CATEGORIZATION ? Negative for Intraepithelial Lesion or Malignancy ? Document reviewed and electronically signed by: ? Odette Almaguer, CT(ASCP) ? Report Date: ??03/28/2009 14:02 ? End of Report ? [facility] 03/22/2009 03/24/2009 us Sujata Mejia MD PATHOLOGY ORDERABLES Final R esult [facility] [address] [place] [address] documented in this encounter Visit Diagnoses Not on filedocumented in this encounter Care Teams Logging Superintendent Relationship Specialty Start Date End Date Unknown, Provider, PCP - General 03/24/09 11/18/19 documented as of this encounter
--- OUTSIDE RECORDS SUMMARY | 2024-09-18 13:04 | XMS_ITS | Encounter Summary ---
Author Organization [facility] Address [address] [place] [address] Care Team Providers Care Coal Chute Worker Name Role Phone David Contreras Primary Care Provider Emma Hernandez MD Primary Care Provider Encounter Details Date Type Department Care Team (Late st Contact Info) Description 09/26/2022 Lab Requisition [facility] Pathology & Laboratory Medicine - [address] [address] Outr Resulting Lab, Provider Social History Tobacco [...] RNA BY PCR Routine 09/26/2022 11:03 EST HEPATITIS B SURFACE ANTIGEN Routine 09/26/2022 11:03 EST documented in this encounter Results * HEPATITIS B SURFACE ANTIGEN (09/26/2022 11:03 EST) Hep B Surface Ag Negative Negative 09/27/2022 9:00 EST [facility] Blood VENOUS BLOOD / Unknown 09/26/2022 11:03 EST 09/26/2022 17:29 EST us Provider Outr Resulting Lab CHEMISTRY & BLOOD GA S ORDERABLES Final Result Performing Organization Address City/[facility] Co de Phone Number [facility] [address] [place] [address] * HEPATITIS C AB W REFLEX TO HCV RNA BY PCR (09/26/2022 11:03 EST) Hep C Antibody Negative Negative 09/27/2022 9:56 EST [facility] Blood VENOUS BLOOD / Unknown 09/26/2022 11:03 EST 09/26/2022 17:29 EST us Provider Outr Resulting Lab CHEMISTRY & BLOOD GA S ORDERABLES Final Result Performing Organization Address City/[facility] Co de Phone Number [facility] [address] [place] [address] documented in this encounter Visit Diagnoses Not on filedocumented in this encounter Care Teams Coal Chute Worker Relationship Specialty Start Date End Date David Contreras PA [address] [place] [address] PCP - General 11/19/19 05/08/23 Emma Hernandez MD [address] [place] [address] PCP - General Family Medicine - Primary Care 05/09/23 documented as of this encounter
--- OUTSIDE RECORDS SUMMARY | 2024-09-18 13:04 | XMS_ITS | Encounter Summary ---
Author Organization [facility] [place] [address] Care Team Providers Care Wood [employer] Wood Products Labourer Name Role Phone Emma Hernandez MD Primary Care Provider Encounter Details Date Type Department Care Team (Latest Contact Info) Description 01/14/2024 Travel Social History Tobacco Use Types Packs/Day [...] on filedocumented in this encounter Care Teams [employer] Wood Products Labourer Relationship Specialty Start Date End Date Emma Hernandez MD [address] [place] [address] PCP - General Family Medicine 11/29/22 documented as of this encounter
--- OUTSIDE RECORDS SUMMARY | 2024-09-18 13:04 | XMS_ITS | Encounter Summary ---
Author Organization [facility] Address [address] [place] [address] Care Team Providers Care Senior Net Software Developer Name Role Phone Unknown, Provider Primary Care Provider Yonny ilcollins Encounter Details Date Type Department Care Team (Late st Contact Info) Description 04/24/2011 Results Only [facility] Laboratory Services - [facility] ([facility]) [address] [place] [address] Sujata Mejia MD [address] [place] [phone] Social History Tobacco Use Types Packs/Day [...] Diagnosis Comments PAP TEST- RESULT ONLY Routine 04/24/2011 0:00 EDT documented in this encounter Results * PAP TEST- RESULT ONLY (04/24/2011 0:00 EDT) Pathology Report: CYTOPATHOLOGY REPORT ? Reports generated via electronic interface contain original data; ? however they are lacking the format of the original report. ? Caution should be taken when reading/interpreti ng unformatted reports. ? Name: ? WAYNE, SUJATA ? Accession #: ? [id number] ? : ? 1990 (Age: 20) ??F ?Collect Date: ? 04/24/2011 ? Location: ? [facility] ? Receive Date: ? 04/25/2011 ? Provider: ?SUJATA JULIANN MD ? Copy to: ? Specimen/Source: ?Pap Test, Endocervix, ThinPrep Imaging System with ? manual evaluation ? Last Menstrual Period: ? Hormonal/Contracep tive Status: ? Condoms ? SPECIMEN ADEQUACY ? Satisfactory for Evaluation ? - transformation zone component present ? GENERAL CATEGORIZATION ? Negative for Intraepithelial Lesion or Malignancy ? Document reviewed and electronically signed by: ? Cris Melendez, SCT(ASCP) ? Report Date: ??05/03/2011 11:30 ? End of Report ? [facility] 04/24/2011 04/25/2011 us Sujata Mejia MD PATHOLOGY ORDERABLES Final R esult [facility] [address] [place] [address] documented in this encounter Visit Diagnoses Not on filedocumented in this encounter Care Teams Senior Net Software Developer Relationship Specialty Start Date End Date Unknown, Provider, PCP - General 03/24/09 11/18/19 documented as of this encounter
--- OUTSIDE RECORDS SUMMARY | 2024-09-18 13:04 | XMS_ITS | Encounter Summary ---
Author Organization [facility] Address [address] [place] [address] Care Team Providers Care Rn Homecare Name Role Phone David Contreras Primary Care Provider Encounter Details Date Type Department Care Team (Latest Contact Info) Description 11/21/2019 Travel Social History Tobacco Use Types Packs/Day [...] on filedocumented in this encounter Care Teams Rn Homecare Relationship Specialty Start Date End Date David Contreras PA [address] [place] [address] PCP - General 11/19/19 05/08/23 documented as of this encounter
--- OUTSIDE RECORDS SUMMARY | 2024-09-18 13:05 | XMS_ITS | Encounter Summary ---
[place] [address] Care Team Providers Care Ultrasound Spec Name Role Phone David Contreras Primary Care Provider + [phone] Reason for Visit * Reason Comments Follow-up right mass Encounter Details Date Type Department Care Team (Late st Contact Info) Description 09/19/2020 1:00 PM EST Office [place] [address] Paige Sprague APRN [facility] [place] [address] Bilateral fibrocystic breast disease Social History Tobacco Use Types Packs/Day Years Used Date Smoking Tobacco: Every Day Smokeless Tobacco: Never Sex and Gender Information Value Date Recorded Sex Assigned at Not on file Gender Identity Not on file Sexual Orientation Not on file documented as of this encounter Last Filed Vital Signs Vital Sign Reading Time Taken Comments Blood Pressure 107/60 09/19/2020 1:03 PM EST Pulse 82 09/19/2020 1:03 PM EST Temperature - - Respiratory Rate - - Oxygen Saturation 99% 09/19/2020 1:03 PM EST Inhaled Oxygen Concentration - - Weight - - Height - - Body Mass Index - - documented in this encounter Progress Notes * Paige Sprague, ABNER - 09/19/2020 1:00 PM EST Ms. García is a 30 y.o. year-old patient who I am following for high risk. Sujata felt a right breast lump in July of 2019, ultrasound at the time was negative. She denies any skin changes, new breast masses, breast trauma, prior breast surgery or nipple discharge. Imaging performed (bilateral mammogram with focused ultrasound right) at [facility] on 07/19/19 was interpreted as Category 1 . She has also had breast imaging performed (ultrasound) on the right at age 24 and 25 which was significant for a cyst in the right upper outer quadrant. She does have a history of cystic breast tissue and has not had cysts aspirated or breast biopsies in the past. She does do occasional self-breast exams. Weight stable She has no new or concerning complaints of fatigue, cardiovascular or respiratory symptoms. All other ROS are negative. She has been feeling well. No change in personal or family history. She stopped Celexa and has noticed premenstrual breast tenderness since this. She has been busy with work due to Covid immunizations. Her 6 year old is in school and she is thankful for this. No breast concerns today. 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 She stopped about 6-7 months ago. She did have a mastitis on the right. Menarche began at 13. She has an IUD. She does note cyclical swelling and tenderness mostly of right breast. Family History: Maternal GGMA ovarian ca, Maternal GMA with breast ca, Paternal aunt from breast ca (diagnosed in her 30's). Mother with fibrocystic breast disease. 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 She does smoke 1-2 cigarettes per day. Past Medical History: TMJ Past Surgical History: Noncontributory Physical Exam: She looks well and is in no apparent distress. Her skin is anicteric with good turgor. Sclera are anicteric. Her head and neck are without masses or adenopathy. Her arms have good ROM without any evidence of lymphedema. Breasts are small with a paucity of fat. Her breasts are symmetric. Her nipples are [...] 1,000 IU daily. We discussed screening mammography at age 34. I have agreed to see her annually for CBE and sooner if needed. Paige Sprague APRN documented in this encounter Plan of Treatment Not on file documented as of this encounter Visit Diagnoses Diagnosis Bilateral fibrocystic breast disease documented in this encounter Care Teams Ultrasound Spec Relationship Specialty Start Date End Date David Contreras PA PCP - General Family Medicine 12/29/15 11/28/22 documented as of this encounter
--- OUTSIDE RECORDS SUMMARY | 2024-09-18 13:05 | XMS_ITS | Encounter Summary ---
Author Organization [facility] Address [facility] [place] [address] Care Team Providers Care Diabetes Clinical Manager Name Role Phone David Contreras Primary Care Provider Encounter Details Date Type Department Care Team (Late st Contact Info) Description 03/05/2016 Ancillary Procedure Radiology Library at [facility] [place] [phone] David Contreras PA [address] [address] Social History Tobacco Use Types Packs/Day Years Used Date Smoking Tobacco: Never Assessed Sex and Gender Information Value Date Recorded Sex Assigned at Not on file Gender Identity Not on file Sexual Orientation Not on file documented as of this encounter Plan of Treatment Not on file documented as of this encounter Procedures Procedure Name Priority Date/Time Associated Diagnosis Comments FILM LIBRARY STORAGE ONLY MAMMO Routine 03/05/2016 12:00 AM EDT documented in this encounter Results * Film Library- Storage Only Mammo (03/05/2016 12:00 AM EDT) Narrative NIDY - 08/23/2019 3:04 PM EST This exam is auto-finalizing. It's purpose is for storage only. David SINGH FILM LIBRARY ORD ERABLES RAD [place], [place] documented in this encounter Visit Diagnoses Not on filedocumented in this encounter Care Teams Diabetes Clinical Manager Relationship Specialty Start Date End Date David Contreras PA PCP - General Family Medicine 12/29/15 11/28/22 documented as of this encounter
--- OUTSIDE RECORDS SUMMARY | 2024-09-18 13:05 | XMS_ITS | Encounter Summary ---
Author Organization [facility] Address [facility] [place] [address] Care Team Providers Care Swimming Instructor Name Role Phone Emma Hernandez MD Primary Care Provider [phone] Encounter Details Date Type Department Care Team (Late st Contact Info) Description 12/24/2022 Orders Only Dermatology at [facility] [address] [place] [address] Patrica Stern MD [facility] [address] [facility] [place] [address] Social History Tobacco Use Types Packs/Day Years [...] on filedocumented in this encounter Care Teams Swimming Instructor Relationship Specialty Start Date End Date Emma Hernandez MD [address] [place], [place] [address] [address] PCP - General Family Medicine 11/29/22 documented as of this encounter
--- OUTSIDE RECORDS SUMMARY | 2024-09-18 13:05 | XMS_ITS | Encounter Summary ---
Author Organization [facility] Address [facility] [place] [address] Care Team Providers Care Secondary Connector Armature Name Role Phone David Contreras Primary Care Provider Encounter Details Date Type Department Care Team (Late st Contact Info) Description 07/19/2019 12:05 AM EST Ancillary Procedure Radiology Library at [facility] [place] [phone] David Contreras PA [address] [address] Social History Tobacco Use Types Packs/Day Years Used Date Smoking Tobacco: Never Assessed Sex and Gender Information Value Date Recorded Sex Assigned at Not on file Gender Identity Not on file Sexual Orientation Not on file documented as of this encounter Plan of Treatment Not on file documented as of this encounter Procedures Procedure Name Priority Date/Time Associated Diagnosis Comments FILM LIBRARY-STORAGE ONLY US BREAST Routine 07/19/2019 12:05 AM EST documented in this encounter Results * Film Library Storage Only US Breast (07/19/2019 12:05 AM EST) Narrative INDY - 08/23/2019 3:06 PM EST This exam is auto-finalizing. It's purpose is for storage only. David SINGH FILM LIBRARY ORD ERABLES [place] documented in this encounter Visit Diagnoses Not on filedocumented in this encounter Care Teams Secondary Connector Armature Relationship Specialty Start Date End Date David Contreras PA PCP - General Family Medicine 12/29/15 11/28/22 documented as of this encounter
--- OUTSIDE RECORDS SUMMARY | 2024-09-18 13:05 | XMS_ITS | Encounter Summary ---
Author Organization [facility] Address [facility] [place] [address] Care Team Providers Care Elementary Reading Tutor Name Role Phone David Contreras Primary Care Provider [phone] Encounter Details Date Type Department Care Team (Late st Contact Info) Description 07/19/2019 Ancillary Procedure Radiology Library at [facility] [place] [address] David Contreras PA [address] [address] Social History Tobacco Use Types Packs/Day Years [...] Comments FILM LIBRARY STORAGE ONLY MAMMO Routine 07/19/2019 12:00 AM EST documented in this encounter Results * Film Library- Storage Only Mammo (07/19/2019 12:00 AM EST) Narrative [facility] - 08/23/2019 3:05 PM EST This exam is auto-finalizing. It's purpose is for storage only. David KIRKPATRICK IMG FILM LIBRARY ORD ERABLES [facility] [place] documented in this encounter Visit Diagnoses Not on filedocumented in this encounter Care Teams Elementary Reading Tutor Relationship Specialty Start Date End Date David Contreras PA PCP - General Family Medicine 12/29/15 11/28/22 documented as of this encounter
--- OUTSIDE RECORDS SUMMARY | 2024-09-18 13:05 | XMS_ITS | Encounter Summary ---
Author Organization [facility] Address [facility] [place] [address] Care Team Providers Care Mineral Economist Name Role Phone Unavailable Primary Care Provider Unavailabl e Encounter Details Date Type Department Care Team (Late st Contact Info) Description 05/31/2015 Ancillary Procedure Radiology Library at [facility] [place] [phone] David Contreras PA [facility] [address] [address] Social History Tobacco Use Types Packs/Day Years [...] Comments FILM LIBRARY-STORAGE ONLY US BREAST Routine 05/31/2015 12:00 AM EDT documented in this encounter Results * Film Library Storage Only US Breast (05/31/2015 12:00 AM EDT) Narrative INDY - 08/23/2019 3:02 PM EST This exam is auto-finalizing. It's purpose is for storage only. David SINGH FILM LIBRARY ORD ERABLES [place] documented in this encounter Visit Diagnoses Not on filedocumented in this encounter
--- OUTSIDE RECORDS SUMMARY | 2024-09-18 13:05 | XMS_ITS | Encounter Summary ---
Author Organization [facility] [place] [address] Care Team Providers Care Ad Operations Associate Name Role Phone Emma Hernandez MD Primary Care Provider [phone] Encounter Details Date Type Department Care Team (Latest Contact Info) Description 12/20/2022 Travel Social History Tobacco Use Types Packs/Day [...] on filedocumented in this encounter Care Teams Ad Operations Associate Relationship Specialty Start Date End Date Emma Hernandez MD [address] [address] PCP - General Family Medicine 11/29/22 documented as of this encounter
--- OUTSIDE RECORDS SUMMARY | 2024-09-18 13:05 | XMS_ITS | Encounter Summary ---
Author Organization [facility] Address [facility] [place] [address] Care Team Providers Care Maintenance Worker House Trailer Name Role Phone Emma Hernandez MD Primary Care Provider Reason for Visit * Consultation (Routine) - Closed Specialty Diagnoses / Procedures Referred By Contedison t Referred To Contact Dermatology Diagnoses Rash and other nonspecific skin eruption , unspecified gestational age Emma Hernandez MD [address] [place] [address] [facility] Dermatology [address] [place] [address] Referral ID Status Reason Start Date Expiration Date V isits Requested Visits Authorized [id number] Closed Consult, Test & Treat 11/29/2022 11/29/2023 6 6 Encounter Details Date Type Department Care Team (Late st Contact Info) Description 12/20/2022 3:00 PM EDT Office Visit Dermatology at [facility] [address] [place] [phone] Patrica Stern MD [facility] [address] [facility] [address] Adult onset atopic dermatitis Social History Tobacco Use Types Packs/Day Years Used Date Smoking Tobacco: Every Day Smokeless Tobacco: Never Comments Yes Sex and Gender Information Value Date Recorded Sex Assigned at Not on file Gender Identity Not on file Sexual Orientation Not on file documented as of this encounter Progress Notes * Patrica Stern MD - 12/20/2022 3:00 PM EDT Images from the original note were not included. DEPARTMENT OF DERMATOLOGY Medical Dermatology Clinic Note Provider: Patrica Stern MD Patient's preferred name Sujata Preferred contact method for results [x]Phone []myD-H []Letter Detailed phone message OK? Yes Are there any other people with whom we may discuss your care? 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 Patient is referred to the clinic at the request of Emma Hernandez for a rash on the bilateral lower legs. PCP suspected it to be fungal. Patient is currently 23 weeks . Has been treating with OTC miconazole and that helps the itch,but does not resolve the issues. Review of Systems: General: Feeling well. Skin: No other skin concerns. Medications: Reviewed in eD-H Allergies: Reviewed in eD-H Skin Examination: Focused skin examination of the bilateral anterior shins was normal with the exception of the findings below. Assessment/Plan #. Favor Atopic Dermatitis of - Eczematous plaques on the bilateral anterior shins that started after started. - BRAEDEN today is negative for fungal elements. - Start Rx: Augmented Betamethasone 0.05% cream to affected areas on bilateral shins twice daily for two weeks, stop for one week, then twice daily on weekend days only. - Discussed that she should consult with her OB to ensure that the above topical steroid is safe during . - Start OTC AmLactin Rapid Relief lotion twice daily which will help with the skin barrier Figure 1 Photo(s) taken and charted with patient's verbal consent. RTC: 2-3 months for atopic dermatitis follow up []Note routed to laboratory secretary []Recall placed in scheduling system [x]Appointment scheduled at checkout Scribe attestation: Sruthi Voss [facility] has performed the documentation for this encounter in thepresence of and acting as a scribe for Patrica Stern MD. I performed the above scribed service and agree with the accuracy of the documentation in this encounter. Reviewed and signed by: Patrica Stern MD Dermatology [facility] Patient seen and evaluated with staff geriatric physical therapist: Priscilla Lopez MD Department of Dermatology [facility] * Priscilla Lopez MD - 12/20/2022 3:00 PM EDT I directly supervised the dermatology resident, Dr. Stern, during this office visit. The resident presented the history and physical exam to me. I then saw and examined this patient with the resident.We reviewed the history and pertinent details and I confirmed the physical findings. I agree with the details of the history and physical exam as documented in the resident's note. Priscilla Lopez MD [facility] Department of Dermatology documented in this encounter Plan of Treatment Not on file documented as of this encounter Visit Diagnoses Diagnosis Adult onset atopic dermatitis documented in this encounter Care Teams Maintenance Worker House Trailer Relationship Specialty Start Date End Date Emma Hernandez MD [address] [place] [address] [place] [address] PCP - General Family Medicine 11/29/22 documented as of this encounter
--- OUTSIDE RECORDS SUMMARY | 2024-09-18 13:05 | XMS_ITS | Encounter Summary ---
Author Organization [facility] [place] [address] Care Team Providers Care Auction Assistant Name Role Phone David Contreras Primary Care Provider + [phone] Reason for Visit * Reason Comments Establish Care * Consultation (Routine) - Closed Specialty Diagnoses / Procedures Referred By Daniel rosas Referred To Contact Hematology and Oncology Diagnoses Breast lump Naya Mason, TECHNICAL SERVICES LIBRARIAN [facility] [place] [address] [facility] [address] [place] [address] Referral ID Status Reason Start Date Expiration Date Visits Re quested Visits Authorized [id number] Closed 08/23/2019 08/22/2020 1 1 Encounter Details Date Type Department Care Team (Late st Contact Info) Description 09/14/2019 9:00 AM EST Office Visit General [place] [address] Paige Sprague, TECHNICAL SERVICES LIBRARIAN [facility] [place] [address] Breast lump on right side at 10 o'clock position Social History Tobacco Use Types Packs/Day Years Used Date Smoking Tobacco: Every Day Smokeless Tobacco: Never Sex and Gender Information Value Date Recorded Sex Assigned at Not on file Gender Identity Not on file Sexual Orientation Not on file documented as of this encounter Last Filed Vital Signs Vital Sign Reading Time Taken Comments Blood Pressure 104/59 09/14/2019 8:43 AM EST Pulse 84 09/14/2019 8:43 AM EST Temperature 37.6 ??C (99.6 ??F) 09/14/2019 8:43 AM ES T Respiratory Rate 14 09/14/2019 8:43 AM EST Oxygen Saturation 99% 09/14/2019 8:43 AM EST Inhaled Oxygen Concentration - - Weight 54.7 kg (120 lb 11.2 oz) 09/14/2019 8:43 AM EST Height 175.3 cm (5' 9) 09/14/2019 8:43 AM EST Body Mass Index 17.82 09/14/2019 8:43 AM EST documented in this encounter Progress Notes * aPige Sprague APRN - 09/14/2019 9:00 AM EST Ms. García is a 29 y.o. year-old patient who is self referred I am seeing at the request of Naya Mason APRN to evaluate a mass in the right breast. Ms. García appreciated this on self exam. She denies any skin changes, new breast masses, breast trauma, prior breast surgery or nipple discharge. Imaging performed ( bilateral mammogram with focused ultrasound right) at [facility] on 07/19/19 was interpreted as Category 1 . She has also had breast imaging performed (ultrasound) on the right at age 24 and 25 which was significant for a cyst in the right upper outer quadrant. She does have a history of cystic breast tissue and has not had cysts aspirated or breast biopsies in the past. She does do occasional self-breast exams. Recent weight loss post . She has no new or concerning complaints of fatigue, cardiovascular or respiratory symptoms. All other ROS are negative. 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 She does smoke 1-2 [...] for fibrocystic breast tissue without discrete masses. I have reviewed outside imaging from our film library. Plan: I have discussed my assessment and recommendations with Ms. García to include occasional self-breast exams and annual clinical breast exams. We discussed the natural history and management ofbreast cysts to include aspiration or observation. I have agreed to see her annually for CBE and sooner if needed. Paige Sprague APRN documented in this encounter Plan of Treatment Not on file documented as of this encounter Visit Diagnoses Diagnosis Breast lump on right side at 10 o'clock position Lump or mass in breast documented in this encounter Care Teams Auction Assistant Relationship Specialty Start Date End Date David Contreras PA PCP - General Family Medicine 12/29/15 11/28/22 documented as of this encounter
--- OUTSIDE RECORDS SUMMARY | 2024-09-18 13:05 | XMS_ITS | Encounter Summary ---
[place] [address] Care Team Providers Care Campground Attendant Name Role Phone David Contreras Primary Care Provider Encounter Details Date Type Department Care Team (Late st Contact Info) Description 10/03/2021 1:20 PM EST Office [place] [address] Paige Sprague APRN [facility] [place] [address] Bilateral fibrocystic breast disease Social History Tobacco Use Types Packs/Day Years Used Date Smoking Tobacco: Every Day Smokeless Tobacco: Never Sex and Gender Information Value Date Recorded Sex Assigned at Not on file Gender Identity Not on file Sexual Orientation Not on file documented as of this encounter Progress Notes * Paige Sprague APRN - 10/03/2021 1:20 PM EST Ms. García is a 31 y.o. year-old patient who I am following for high risk. Sujata felt a right breast lump in July of 2019, ultrasound at the time was negative. She denies any skin changes, new breast masses, breast trauma, prior breast surgery or nipple discharge. [facility] change in personal or family history. She is hoping to try to conceive over the summer. Work is going well. Her son is in school, doing well. Reproductive History: P2 , had her first [...] disease documented in this encounter Care Teams Campground Attendant Relationship Specialty Start Date End Date David Contreras PA PCP - General Family Medicine 12/29/15 11/28/22 documented as of this encounter
--- OUTSIDE RECORDS SUMMARY | 2024-09-18 13:05 | XMS_ITS | Encounter Summary ---
Author Organization [facility] [place] [address] Care Team Providers Care Instructional Supervisor Name Role Phone Emma Hernandez MD Primary Care Provider Reason for Referral * Consultation (Routine) - Closed Specialty Diagnoses / Procedures Referred By Contedison t Referred To Contact Dermatology Diagnoses Rash and other nonspecific skin eruption , unspecified gestational age Emma Hernandez MD [facility] [place] [address] [facility] D[facility] [address] [place] [address] Referral ID Status Reason Start Date Expiration Date V isits Requested Visits Authorized [id number] Closed Consult, Test & Treat 11/29/2022 11/29/2023 6 6 Encounter Details Date Type Department Care Team (Late st Contact Info) Description 11/29/2022 Transcribe Orders eDH Incoming Referrals [phone] Emma Hernandez MD [facility] [place], [place] [id number] Rash and other nonspecific skin eruption; , unspecified gestational age Social History Tobacco Use Types Packs/Day Years Used Date Smoking Tobacco: Every Day Smokeless Tobacco: Never Sex and Gender Information Value Date Recorded Sex Assigned at Not on file Gender Identity Not on file Sexual Orientation Not on file documented as of this encounter Plan of Treatment Scheduled Referrals Name Type Priority Associated Diagnoses Orde r Schedule Referral to Dermatology Outpatient Referral Routine Rash and other nonspecific skin eruption , unspecified gestational age Ordered: 11/29/2022 documented as of this encounter Visit Diagnoses Diagnosis Rash and other nonspecific skin eruption , unspecified gestational age documented in this encounter Care Teams Instructional Supervisor Relationship Specialty Start Date End Date Emma Hrenandez MD [address] [place] [id number] PCP - General Family Medicine 11/29/22 documented as of this encounter
--- OUTSIDE RECORDS SUMMARY | 2024-09-18 13:05 | XMS_ITS | Encounter Summary ---
[place] [address] Care Team Providers Care Paint Prep Technician Name Role Phone Emma Hernandez MD Primary Care Provider [phone] Reason for Visit * Reason Comments Follow-up Encounter Details Date Type Department Care Team (Late st Contact Info) Description 01/29/2023 1:40 PM EDT Office [place] [address] Paige Sprague APRN [facility] [address] [place] [address] Bilateral fibrocystic breast disease Social History Tobacco [...] Pulse 80 01/29/2023 1:45 PM EDT Temperature - - Respiratory Rate 16 01/29/2023 1:45 PM EDT Oxygen Saturation 100% 01/29/2023 1:45 PM EDT Inhaled Oxygen Concentration - - Weight - - Height - - Body Mass Index - - documented in this encounter Progress Notes * Paige Sprague APRN - 01/29/2023 1:40 PM EDT Ms. Malachuk is a 32 y.o. year-old patient who I am following for high risk. Sujata felt a right breast lump in July of 2019, ultrasound at the time was negative. She denies any skin changes, new breast masses, breast trauma, prior breast surgery or nipple discharge. She is expecting baby #3 in April! Imaging performed (bilateral mammogram with focused ultrasound right) at [facility] on 07/19/19 was interpreted as Category 1. [...] is going well. Her son anddaughter are excited about new sibling! 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
--- OUTSIDE RECORDS SUMMARY | 2024-09-18 13:05 | XMS_ITS | Encounter Summary ---
Author Organization [facility] [place] [address] Care Team Providers Care Staff Services Manager Name Role Phone Emma Hernandez MD Primary Care Provider Encounter Details Date Type Department Care Team (Late st Contact Info) Description 11/29/2022 Transcribe Orders eDH Incoming Referrals [phone] Emma Hernandez MD [address] [place] [address] Social History Tobacco Use Types Packs/Day Years [...] on filedocumented in this encounter Care Teams Staff Services Manager Relationship Specialty Start Date End Date Emma Hernandez MD [address] [place] [address] PCP - General Family Medicine 11/29/22 documented as of this encounter
--- OUTSIDE RECORDS SUMMARY | 2024-09-18 13:05 | XMS_ITS | Encounter Summary ---
Author Organization [facility] Address [facility] [place] [address] Care Team Providers Care Research Technician Name Role Phone David Contreras Primary Care Provider Encounter Details Date Type Department Care Team (Late st Contact Info) Description 01/25/2016 Ancillary Procedure Radiology Library at [facility] [place] [address] David Contreras PA [address] [address] Social History Tobacco Use Types Packs/Day Years [...] Comments FILM LIBRARY-STORAGE ONLY US BREAST Routine 01/25/2016 12:00 AM EDT documented in this encounter Results * Film Library Storage Only US Breast (01/25/2016 12:00 AM EDT) Narrative INDY - 08/23/2019 3:03 PM EST This exam is auto-finalizing. It's purpose is for storage only. David SINGH FILM LIBRARY ORD ERABLES RAD [place], [place] documented in this encounter Visit Diagnoses Not on filedocumented in this encounter Care Teams Research Technician Relationship Specialty Start Date End Date David Contreras PA PCP - General Family Medicine 12/29/15 11/28/22 documented as of this encounter
--- OUTSIDE RECORDS SUMMARY | 2024-09-18 13:05 | XMS_ITS | Encounter Summary ---
Author Organization [facility] [place] [address] Care Team Providers Care Dyehouse Worker Name Role Phone David Contreras Primary Care Provider + [phone] Reason for Visit * Diagnostic Test (Routine) - Closed Specialty Diagnoses / Procedures Referred By Daniel rosas Referred To Contact Radiology Diagnoses Derangement of TMJ (temporomandibular joint) Procedures MRI TMJ WO Contrast MRI Face With/WO Contrast Bishop Holloway DMD [facility] [address] [place] [address] [place] [address] Referral ID Status Reason Start Date Expiration Date V isits Requested Visits Authorized [id number] Closed Specialty Service Requested 12/29/2015 12/28/2016 1 1 Encounter Details Date Type Department Care Team (Latest Contact Info) Description 12/29/2015 6:49 PM EDT - 12/29/2015 11:59 PM EDT Hospital [place] [address] Bishop Holloway DMD [address] [place] [id number] Derangement of TMJ (temporomandibular joint) Discharge Disposition: Home Social History Tobacco Use Types Packs/Day Years Used Date Smoking Tobacco: Never Assessed Sex and Gender Information Value Date Recorded Sex Assigned at Not on file Gender Identity Not on file Sexual Orientation Not on file documented as of this encounter Plan of Treatment Not on file documented as of this encounter Procedures Procedure Name Priority Date/Time Associated Diagnosis Comments MRI TMJ WO CONTRAST Routine 12/29/2015 8 :40 PM EDT Derangement of TMJ (temporomandibular joint) documented in this encounter Results * MRI TMJ WO Contrast (12/29/2015 8:40 PM EDT) Anatomical Region Laterality Modality Head Magnetic Resonan ce Impressions 12/30/2015 1:26 PM EDT IMPRESSION: 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 Hypoplastic condylar eminences with shallow condylar fossae. Extensive bilateral disc degeneration including anterior disc dislocation which does not recapture on jaw opening. Narrative 12/30/2015 1:26 PM EDT EXAMINATION: MRI TMJ WO CONTRAST CLINICAL HISTORY: TMJ derangement TECHNIQUE: MRI of the temporomandibular joint was obtained per standard protocol. No intravenous contrast. COMPARISON: None FINDINGS: There is symmetric variant of the jaw anatomy with thick mandibular rami bilaterally and short condylar processes. The condylar heads are relatively flat on each side more so on the left. The condylar fossae are relatively flat bilaterally with hypoplasia of the condylar eminences. With both of the discs there is marked disc degeneration. The discs are of heterogeneously hyperintense signal and their margins are difficult to define. On the closed mouth view a discrete disc is difficult to identify but the disc material appears to lie largely anterior to the joint and just under the condylar eminence. With mouth opening, on both sides, this material is shifted forward but is not recaptured. Procedure Note Milo Raymundo MD - 12/30/2015 EXAMINATION: MRI TMJ WO CONTRAST CLINICAL HISTORY: TMJ derangement TECHNIQUE: MRI of the temporomandibular joint was obtained per standard protocol. No intravenous contrast. COMPARISON: None FINDINGS: There is symmetric variant of the jaw anatomy with thick mandibular rami bilaterally and short condylar processes. The condylar heads arerelatively flat on each side more so on the left. The condylar fossae are relativelyflat bilaterally with hypoplasia of the condylar eminences. With both of the discs there is marked disc degeneration. The discs areof heterogeneously hyperintense signal and their margins are difficult todefine. On the closed mouth view a discrete disc is difficult to identify but thedisc material appears to lie largely anterior to the joint and just under the condylar eminence. With mouth opening, on both sides, this material isshifted forward but is not recaptured. IMPRESSION IMPRESSION: Relative hypoplasia of the condylar processes of the mandiblesbilaterally. Hypoplastic condylar eminences with shallow condylar fossae. Extensive bilateral disc degeneration including anterior disc dislocationwhich does not recapture on jaw opening. Bishop Holloway DMD IMG MRI ORDERABLES documented in this encounter Visit Diagnoses Diagnosis Derangement of TMJ (temporomandibular joint) Other specified temporomandibular joint disorders documented in this encounter Care Teams Dyehouse Worker Relationship Specialty Start Date End Date David Contreras PA PCP - General Family Medicine 12/29/15 11/28/22 documented as of this encounter
--- NOTE | 2024-09-18 13:15 | DI.RAD_ITS ---
Exam(s) XR CHEST 2V PA LATERAL EXAM: XR CHEST 2V PA LATERAL CLINICAL HISTORY: tachycardia, SOB TECHNIQUE: 2D digital imaging was performed of the chest. Two images were obtained. PA and lateral views were obtained. COMPARISON: No exams were available for comparison FINDINGS: MEDIASTINUM: Normal. HEART: Normal. PULMONARY VASCULATURE: Normal. LUNGS: There is a good inspiratory effort. No focal consolidating infiltrates are seen. PLEURAL SPACE: No pleural effusion or pneumothorax. BONE:Within normal limits for the patient's age. OTHER FINDINGS:Normal. IMPRESSION: No acute pulmonary findings. DATA REPOSITORY: RADIATION DOSE DELIVERED:
--- NOTE | 2024-09-18 13:17 | ED.GENADUL_ITS ---
Discharge Plan Disposition Condition: Good Discharge Details Chief Complaint: Arrhythmia Clinical Impression: Tachycardia Primary Care Provider: Emma Hernandez ED Provider: Darwin Stubbs Home Meds and New Rx's Prescriptions: New diltiazem HCl 30 mg tablet 30 mg PO PRN PRNQty: 10 0RF Rx Instructions: Take 1 tablet by mouth as needed for palpitations with rapid heart rate. No Action escitalopram oxalate 20 mg tablet 20 mg PO QHS ibuprofen 600 mg tablet 600 mg PO Q8H PRNQty: 60 1RF Discharge Instructions Additional Instructions: Please follow-up with your primary care provider, calling first thing Friday to schedule an appointment to discuss today's emergency department visit. I recommend having a Zio patch ordered outpatient to further evaluate your heart rhythm. I have prescribed you a medication called diltiazem. Please take 1 tablet for tachycardia as needed. If your blood pressure remains over 100 systolic, you may take a second 1:01 hour. However, you can come to back to the emergency department for reassessment if you have any worries or if your blood pressure is low. Avoid any new caffeine, nicotine products, ssvt-[id number]-[id number] medications, alcohol consumption, or illicit drug use. Return to emergency care if you develop new chest pains, episodes of passing out/dizziness, difficulty breathing, or if you are very worried and need to be rechecked again immediately HPI <Sasha Mathew - Last Filed: 09/18/24 15:48> General Date/Time Provider Initiated Documentation: 09/18/24 12:59 . HPI Narrative: Sujata is a 34 year old female who presents to the emergency department today for evaluation of onset of rapid heart rate with SOB/dizziness with exertion. She reports that this started this morning when she was getting her kids ready to go out. She denies associated fever/chills, congestion, sore throat, cough, chest pain, nausea/vomiting, diaphoresis, change in bowel or bladder function. No new medications or change in caffeine intake. She is a former smoker.. Past medical history is significant for anxiety, for which she takes escitalopram. Physical exam reassuring. Sujata is alert and oriented, no acute distress. Tachycardia noted, regular rhythm. Pulses intact bilaterally to upper extremities. No JVD or pedal edema. Easy work of breathing, lung sounds clear bilaterally. Abdomen is soft, nondistended, nontender palpation. Vagal maneuvers were attempted using oral syringe, heart rate decreased from 150s to 130s, but bounced back up after vagal maneuver was stopped. D/dx includes but is not limited to: SVT, a flutter/A-fib with RVR, sinus tachycardia, dehydration, electrolyte imbalance, thyroid dysfunction, anxiety I independently interpreted the following tests: Initial EKG shows sinus tachycardia, rate 141, normal intervals. Repeat EKG after diltiazem shows normal sinus rhythm with rate 84, prolonged OK 221, QTc within normal limits. ST depressions resolved, likely rate related. Chest x-ray reassuring, no obvious cardiomegaly or infiltrates noted. CBC, CMP and TSH all reassuring. Only mild hypokalemia noted, potassium 3.2. While in the emergency department, Sujata received 20 mg diltiazem IV with full improvement of symptoms and resolution of sinus tachycardia. Oral potassium given for replenishment. Discussed case with Zahida Sanchez, cardiology [employer]. Reviewed patient presentation, labs, EKG, and response to diltiazem. She recommends 30 mg Dilt IR as needed up to 4 pills a day, close PCP follow-up for Zio patch, and cardiology follow-up as needed. Troponins elevated from 35 to 96, likely rate- related demand ischemia; these were both resulted after consult with cardiology. Awaiting 3-hour repeat and repeat consult with cardiology. Handoff report given to Ruddy Stubbs NP, evening CARLOS ENRIQUE Related Data Home Medications ?Medication ?Instructions ?Recorded ?Confirmed ibuprofen 600 mg tablet 600 mg PO Q8H PRN #60 tabs 04/08/23 09/18/24 diltiazem HCl 30 mg tablet 30 mg PO PRN PRN #10 tabs 09/18/24 escitalopram oxalate 20 mg tablet 20 mg PO QHS 09/18/24 09/18/24 Previous Rx's ?Medication ?Instructions ?Recorded ibuprofen 600 mg tablet 600 mg PO Q8H PRN #60 tabs 04/08/23 diltiazem HCl 30 mg tablet 30 mg PO PRN PRN #10 tabs 09/18/24 Allergies Allergy/AdvReac Type Severity Reaction Status Date / Time No Known Allergies Allergy Verified 09/18/24 13:34 General Stated Complaint: Arrhythmia RAMY: 2 Review of Systems <Sasha Mathew - Last Filed: 09/18/24 15:48> Narrative: See HPI Exam <Sasha Mathew - Last Filed: 09/18/24 15:48> Const General: cooperative, healthy appearing, comfortable, no acute distress, well developed, well groomed and not diaphoretic Nutritional Appearance: average body habitus and well nourished Orientation: alert and oriented x3 Neck Neck: normal visual inspection and full ROM Resp Effort & Inspection: normal respiratory effort and able to speak in complete se ntences Auscultation: clear to auscultation bilaterally Cardio Jugular venous pressure: no JVD Rate: tachycardic Rhythm: regular rhythm Pulses: radial pulses present GI Inspection: normal to inspection and non-distended Palpation: soft, not firm and no guarding Skin General skin exam: no rashes or lesions noted Extrem General: normal to inspection, no pedal edema and normal gait Course <Sasha Mathew - Last Filed: 09/18/24 15:48> Vital Signs Vital signs: Vital Signs Temperature 37.1 C 09/18/24 13:04 Pulse 152 H 09/18/24 13:04 Respiratory Rate 17 09/18/24 13:04 Blood Pressure 102/75 09/18/24 13:04 Pulse Oximetry 98 09/18/24 13:04 Temperature 37.1 C 09/18/24 13:04 Temperature Source Oral 09/18/24 13:04 Pulse 149 H 09/18/24 13:15 Pulse 152 H 09/18/24 13:15 Respiratory Rate 18 09/18/24 13:15 Blood Pressure 106/62 09/18/24 13:15 Blood Pressure Mean 75 09/18/24 13:15 Blood Pressure Position Sitting 09/18/24 13:04 Pulse Oximetry 100 09/18/24 13:15 Oxygen Delivery Method Room Air 09/18/24 13:04 Oxygen Flow Rate 0 09/18/24 13:04 Pain Level 0 09/18/24 13:12 Medical Decision Making <Sasha Mathew - Last Filed: 09/18/24 15:48> Quality:SDOH Health Related Social Needs: Health related social needs education (Z55.6) <Darwin Stubbs NP - Last Filed: 09/18/24 23:59> Received patient in signout from Sasha HDZ. Please see previous documentation for presentation interventions and plan up until signout. When I received patient we are were pending repeat troponin which did come back elevated and waiting on speaking with cardiology. [place] [facility] [place] with cardiology group in regards to patient's case. Informed her that no EKG changes have been noted since elevated troponin at 159, patient complaining of dull chest pain but otherwise asymptomatic no shortness of breath no lighthearted headedness and continued sinus rhythm per monitor. Cardiology's recommendation was to trend the troponins and that more than likely this was demand ischemia. Did repeat third EKG which continue to show sinus rhythm with no other changes noted. Third troponin came back at 196 which is slowing increase and patient reassessed and states no change in symptoms. Will repeat another troponin at 3 hours and then discussed with patient discharge versus admission depending on trending data. Will continue to monitor. Fourth troponin came back at 210 with slow elevation. Patient denies any change of symptoms. EKG performed and shows no significant change from previous ones. Will reach out to [facility] cardiology given slowly upward trending troponin. [facility] <Sasha Mathew - Last Filed: 09/18/24 15:48> All Active Problems (Updated 09/18/24 @ 14:50 by Sasha Mathew) Tachycardia (Acute) Social anxiety disorder (Acute 05/22/16) Managed with citalopram; prior trial of sertraline. Vitamin D deficiency (Acute) Medical History (Updated 09/18/24 @ 14:50 by Sasha Mathew) History of shoulder dystocia in prior Nevus, atypical s/p skin biopsy. 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 Sx improved. Migraine headache without aura Infrequent now since Tx for her TMJ . Surgical History tmj arthroscopy 03/2016 [facility] [place]. [place] teeth extractions 2006 Family History Maternal Aunt Multiple sclerosis Paternal Aunt Breast cancer 30s Mother Fibrocystic breast changes of both breasts Maternal Grandmother Osteoporosis Breast cancer Father Hyperlipidemia Brother No problems noted. Brother No problems noted. Brother No problems noted. Son No problems noted. Daughter No problems noted. Paternal Grandfather Heart disease Other Diabetes Myocardial infarction Personal history of malignant neoplasm Social History Smoking/Tobacco Use Status: Former Tobacco Use Quit Date: 09/08/13 Tobacco: How many years used: 12 Quit status: has quit before Second Hand Exposure: Yes Counseling given: provider counseling and support medications Smoking risk assessment performed?: Yes Alcohol Intake: current Alcohol Intake frequency: a few times a month Alcohol type: beer Drug use: Never Substance use type: does not use Adopted: No Caregiver/Support person: No Foster care: No Household members: spouse, family and children Housing: house Number of Children: 2 Communication Needs: None Education Level: college 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[employer]; RN Pets and animals: Yes Pets and animals: cat(s) and dog(s) Sexually active: Yes Do you think of yourself as: straight/heterosexual Current gender identity: female What is your relationship status?: How often do you attend jain or presybeterian services?: 4 or more times per year Do you belong to any clubs or organized social groups?: no Panel score (0-1 are the most socially isolated patients): 2 What type of physical activity do you participate in: other Details: enjoys cam ping, hiking Tania/Taoist: Yazdanism Seatbelt use: always Helmet use: Yes Helmet use: always Drive intox or ride w/intox racecar driver: No Do you feel safe in your relationship?: Yes History History 3 Para 3 Hx # Term Pregnancies 3 Multiple births 0 Hx # Pregnancies 0 Ectopic pregnancies 0 AB induced 0 Hx Number of Living Children 3 AB spontaneous 0 Past Pregnancies Del. Date GA/Weeks # Preg Succ Route Wgt Sex Labor Lgth Anesth esia Location [facility] Compl 01/06/15 41 No Yes vaginal 5.103 kg Male Rianna Gonzales 07/20/18 41 No Yes vaginal 4564.273 g Female 5 hrs. 8 min. [facility] induced 04/06/23 39 No Yes vaginal 3639.994 g Female 3.5hrs AO C Delivery Date: 01/06/15 Last Updated by: Jennifer Han IOL for post dates, episiotomy, mild shoulder dystocia, 3rd degree Delivery Date: 07/20/18 Last Updated by: Jennifer Han IOL for postdates, mild shoulder dystocia, PPH, no transfusion. Delivery Date: 04/06/23 Last Updated by: Deana Langford MD Brittani IND due to hx shoulder dystocia
[2024-09-18] MEDS: dilTIAZem 25 MG/5 ML VIAL 20 MG IVP (13:23)
[2024-09-18 13:27] LABS: Abs Immature Grans 0.01 10^3/uL (0.0-0.06); Absolute Basophil Count 0.13 10^3/uL (0.0-0.2); Absolute Lymphocyte Count 1.95 10^3/uL (1.2-3.4); Absolute Monocyte Count 0.77 10^3/uL (0.1-0.8); Basophils % 1.6 %; Eosinophils % 9.7 %; HCT 45.8 % (36.0-46.0); Immature Grans % 0.1 %; Lymphocytes % 23.6 %; MCH 30.6 pg (27.0-33.0); MCHC 32.8 % (32.0-36.0); MCV 94 fL (80-95); MPV 10.6 fL (8.0-11.0); Monocytes % 9.3 %; Neutrophils % 55.7 %; Platelet Count 312 10^3/uL (130-400); RDW 12.4 % (11.7-14.6); WBC 8.26 10^3/uL (4.4-10.8)
--- NOTE | 2024-09-18 13:30 | RT.EKG_ITS ---
APPROVED REPORT Exam: Resting ECG Reason for Exam: Converted Patient Location: E HR:84 bpm ECG Measurements Heart Rate 84 AXIS LA 221 P 64 QRSd 64 QRS 79 QT 344 T 60 QTc 405 Conclusion Sinus rhythm, rate 84 1st degree HB, LA interval 221ms No STEMI Compared to prior, sinus tach and ST depression have resolved
[2024-09-18 13:49] LABS: Anion Gap 6.7 mmol/L (3-11); BUN 10 mg/dL (7-18); CO2 31.3 mmol/L (21.0-32.0); CREATININE 0.8 mg/dL (0.55-1.02); Calcium 8.9 mg/dL (8.5-10.1); Chloride 108 mmol/L (98-107); Estimated GFR 98.48 (mL/min/1.73m2); Glucose 88 mg/dL (74-106); Potassium 3.2 mmol/L (3.5-5.1); Sodium 146 mmol/L (136-145); TSH (W/Ref FT4) 1.74 uIU/mL (0.36-3.74)
[2024-09-18] MEDS: Potassium Bicarbonate/Cit AC 25 MEQ TABLET.EFF PO (14:19)
[2024-09-18 14:49] LABS: Troponin I 35 ng/L (<or=51)
[2024-09-18 15:08] LABS: Troponin I 96 ng/L (<or=51)
[2024-09-18] MEDS: dilTIAZem 30 MG TAB PO (15:18)
[2024-09-18] MEDS: Aspirin 81 MG CHEW 324 MG CH (15:25)
--- NOTE | 2024-09-18 16:45 | RT.EKG_ITS ---
APPROVED REPORT Exam: Resting ECG Reason for Exam: repeat for CP Patient Location: E HR:76 bpm ECG Measurements Heart Rate 76 AXIS TX 183 P 73 QRSd 70 QRS 76 QT 368 T 55 QTc 414 Conclusion Sinus rhythm, rate 76 No interval abnormalities No STEMI No significant changes from priors
[2024-09-18 16:48] LABS: Troponin I 159 ng/L (<or=51)
[2024-09-18 18:45] LABS: Troponin I 194 ng/L (<or=51)
--- NOTE | 2024-09-18 21:45 | RT.EKG_ITS ---
APPROVED REPORT Exam: Resting ECG Reason for Exam: elevated trop Patient Location: I HR:68 bpm ECG Measurements Heart Rate 68 AXIS AL 193 P 79 QRSd 68 QRS 81 QT 401 T 57 QTc 427 Conclusion Sinus rhythm...normal P axis, V-rate 50- 99 Paired ventricular premature complexes...sequence of 2 V complexes I have reviewed and interpreted ECG and agree with software generated interpretation.
[2024-09-18 21:46] LABS: Troponin I 210 ng/L (<or=51)
[2024-09-18 23:10] LABS: D-Dimer 319 ng/mlFEU (<500)
[2024-09-19] VITALS (28 sets, daily range): BP systolic 92–130; BP diastolic 43–77; PULSE 60–101; RESP 12–24; TEMP 36.3–37.2; O2SAT 98–100
--- NOTE | 2024-09-19 01:24 | W.EDPROG ---
Date of service: 09/19/24 Time of Service: 01:24 Medical Decision Making Patient was signed out to me by my colleague Dutch Stubbs. Who received signout from his colleague Sasha Loera. Please refer to their HPI's, physical exams, assessment and plans. At time of signout we are awaiting callback from [facility]. Discussed the case with [facility] in regards to the trending troponins that have been steadily rising currently now at 210. [facility] recommends admission with echo and continued troponin trending. Thyroid function normal. I did add a D-dimer and this was normal. Patient remains on the monitor here and is stable. [facility] after review believes that this was an episode of flutter. Recommends outpatient Zio patch. We do not have echo until Friday, but patient has agreed to stay until then. Discussed the case with the hospitalist Dr. Barrientos, he agrees with the assessment I have extensively reviewed the treatment plan with the patient. I have addressed all patient concerns at this time. I have also discussed the plan with the admitting physician and they agree with the current assessment and plan and have agreed to assume responsibility for the patient. All parties demonstrate verbal understanding and agreement with our assessment and plan at this time. The documentation in this chart was dictated using [employer] dictation software. Please excuse any dictation errors. Quality:SDOH Health Related Social Needs: Health related social needs education (Z55.6) Discharge Plan Disposition Patient Disposition: Admit to [facility] Condition: Good Discharge Details Chief Complaint: Arrhythmia Clinical Impression: Tachycardia, Atrial flutter Primary Care Provider: Emma Hernandez ED Provider: David Duncan Home Meds and New Rx's Prescriptions: New diltiazem HCl 30 mg tablet 30 mg PO PRN PRNQty: 10 0RF Rx Instructions: Take 1 tablet by mouth as needed for palpitations with rapid heart rate. No Action escitalopram oxalate 20 mg tablet 20 mg PO QHS ibuprofen 600 mg tablet 600 mg PO Q8H PRNQty: 60 1RF Discharge Instructions Additional Instructions: Please follow-up with your primary care provider, calling first thing Friday morning to schedule an appointment to discuss today's emergency department visit. I recommend having a Zio patch ordered outpatient to further evaluate your heart rhythm. I have prescribed you a medication called diltiazem. Please take 1 tablet for tachycardia as needed. If your blood pressure remains over 100 systolic, you may take a second 1:01 hour. However, you can come to back to the emergency department for reassessment if you have any worries or if your blood pressure is low. Avoid any new caffeine, nicotine products, [id number] medications, alcohol consumption, or illicit drug use. Return to emergency care if you develop new chest pains, episodes of passing out/dizziness, difficulty breathing, or if you are very worried and need to be rechecked again immediately
--- NOTE | 2024-09-19 01:39 | HPE_ITS ---
Date of service: 09/19/24 Time of Service: 01:39 Assessment and Plan Assessment and plan (1) Atrial flutter: Status: Acute Assessment and plan: Presented with acute SVT. Per cardiology most c/w flutter. Converted s/p diltiazem, will continue oral diltiazem at low dose Unclear trigger, nothing obvious by history. Case reviewed with cardiology, recommends admit to monitor, echocardiogram before discharge. (2) Troponin level elevated: Status: Acute Assessment and plan: likely tachycardia induced from above, but hasn't trended down yet, continue to trend in AM. No STEMI, not c/w coronary disease as cause. Adding CRP/ESR for inflammatory trigger? D-dimer negative. echo pending as above. (3) Social anxiety disorder: Status: Acute Assessment and plan: controlled with escitalopram (4) Hypokalemia: Status: Acute Assessment and plan: mild, supplemented in ED. Follow with morning labs, get Mg. (5) DVT prophylaxis: Status: Acute Assessment and plan: active, low risk. Ambulate, medical prophylaxis not indicated History of Present Illness History of Present Illness Chief Complaint: heart racing Narrative: 34 yo healthy female presented to the emergency room with a new rapid heart rate associated with lightheadedness and dyspnea on exertion. She first noted feeling slightly lightheaded this morning around 8:30 after standing up from the couch. She hadn't eaten and she was getting ready for her kid's basketball game so she grabbed a granola bar and went to the game. During the game watching seated in the stands she started feeling the rapid beating in her chest and more lightheadedness. She used her Apple watch and it gave her a HR in the 130s. By the time she got home she noticed that with walking her rate was in the 170s and she was dyspneic. At that point she decided she should come in. She never felt chest pain or pressure. She has not been sick with fever or other symptoms. She takes escitalopram for anxiety but has not been anxious recently. She drinks 2-3 cups of coffee per day with no recent change and no other regular sources of caffeine. She drinks occasionally but had no alcohol the night before and had a normal night sleep. She does not use other substances or OTC supplements or energy drinks. In the ED, she tried a vagal maneuver blowing through a straw but this didn't change her heart rate. She felt better immediately after the cardizem was given IV. She hasn't had any symptoms since. She had some palpitations in college and had a electronic device monitor evaluation, but nothing like this. No known arrhythmias in her family. Review of Systems All systems reviewed & are unremarkable except as noted in HPI and below Constitutional Constitutional: Denies fever(s), Denies weight gain and Denies weight loss Cardiovascular Cardiovascular: Reports as per HPI, Denies syncope, Denies leg edema and Denies orthopnea Respiratory Respiratory: Denies cough Integumentary/Breasts Skin/Breast: Denies lesions, Reports rash (mild eczema left ramos) and Denies sores Neurologic Neurologic: Denies confusion and Denies syncope Psychiatric Psychiatric: Denies confusion and Denies panic attacks Endocrine Endocrine: Denies cold intolerance and Denies heat intolerance Comments: periods regular. not breast feeding (youngest is 18 mo) [facility] All Active Problems (Updated 09/19/24 @ 02:04 by Zac Gonzalez) Hypokalemia (Acute) DVT prophylaxis (Acute) Troponin level elevated (Acute) Atrial flutter (Acute) Tachycardia (Acute) Vitamin D deficiency (Acute) Social anxiety disorder (Acute 05/22/16) Managed with citalopram; prior trial of sertraline. Medical History History of shoulder dystocia in prior Nevus, atypical s/p skin biopsy. 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 Sx improved. Migraine headache without aura Infrequent now since Tx for her TMJ . Surgical History tmj arthroscopy 03/2016 [facility] [place]. [place] teeth extractions 2006 Family History Maternal Aunt Multiple sclerosis Paternal Aunt Breast cancer 30s Mother Fibrocystic breast changes of both breasts Maternal Grandmother Osteoporosis Breast cancer Father Hyperlipidemia Brother No problems noted. Brother No problems noted. Brother No problems noted. Son No problems noted. Daughter No problems noted. Paternal Grandfather Heart disease Other Diabetes Myocardial infarction Personal history of malignant neoplasm Social History (Updated 09/19/24 @ 01:51 by Zac Gonzalez) Smoking/Tobacco Use Status: Former Tobacco Use Quit Date: 09/08/13 Tobacco: How many years used: 12 Quit status: has quit before Second Hand Exposure: Yes Counseling given: provider counseling and support medications Smoking risk assessment performed?: Yes Alcohol Intake: current Alcohol Intake frequency: a few times a month Alcohol type: beer Drug use: Never Substance use type: does not use Adopted: No Caregiver/Support person: No Foster care: No Household members: spouse, family and children Housing: house Number of Children: 3 Communication Needs: None Education Level: college 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 Pets and animals: Yes Pets and animals: cat(s) and dog(s) Sexually active: Yes Do you think of yourself as: straight/heterosexual Current gender identity: female What is your relationship status?: How often do you attend islam or mormon services?: 4 or more times per year Do you belong to any clubs or organized social groups?: no Panel score (0-1 are the most socially isolated patients): 2 What type of physical activity do you participate in: other Details: enjoys camping, hiking Tania/Nondenominational: Jainism Seatbelt use: always Helmet use: Yes Helmet use: always Drive intox or ride w/intox driver/refuse collector: No Do you feel safe in your relationship?: Yes History History 2 3 Para 3 Hx # Term Pregnancies 3 Multiple births 0 Hx # Pregnancies 0 Ectopic pregnancies 0 AB induced 0 Hx Number of Living Children 3 AB spontaneous 0 Past Pregnancies Del. Date GA/Weeks # Preg Succ Route Wgt Sex Labor Lgth Anesth esia Location [facility] 01/06/15 41 No Yes vaginal 5.103 kg Male Antoinette Gonzales'Dominguez 07/20/18 41 No Yes vaginal 4564.273 g Female 5 hrs. 8 min. [facility] ben[facility] cnm induced 04/06/23 39 No Yes vaginal 3639.994 g Female 3.5hrs AO C Delivery Date: 01/06/15 Last Updated by: Jennifer Han IOL for post dates, episiotomy, mild shoulder dystocia, 3rd degree Delivery Date: 07/20/18 Last Updated by: Jennifer Han IOL for postdates, mild shoulder dystocia, PPH, no transfusion. Delivery Date: 04/06/23 Last Updated by: Deana Langford MD [facility] due to hx shoulder dystocia Meds Allergies and Home Medications Allergies Allergy/AdvReac Type Severity Reaction Status Date / Time No Known Allergies Allergy Verified 09/18/24 13:34 Home Medications ?Medication ?Instructions ?Recorded ?Confirmed ?Type ibuprofen 600 mg tablet 600 mg PO Q8H PRN #60 tabs 04/08/23 09/18/24 Rx diltiazem HCl 30 mg tablet 30 mg PO PRN PRN #10 tabs 09/18/24 Rx escitalopram oxalate 20 mg tablet 20 mg PO QHS 09/18/24 09/18/24 History Exam Narrative Exam Narrative: GEN: Alert and oriented x 4, pleasant and cooperative, gives linear history. No acute distress at rest. HEENT: Head atraumatic. Conjunctiva clear, no icterus. PEERL, EOMI. no rhinorrhea. MMM, OP benign. Neck is supple with no masses or lymphadenopathy, normal thyroid, trachea midline LUNGS: CTAB with normal effort CV: RRR with no murmurs, gallops, or rubs. ABD: active bowel sounds, soft, nontender and nondistended. No masses. EXT: no cyanosis, clubbing, or edema MSK: No joint redness or swelling NEURO: CN 2-12 grossly intact. Normal movement of 4 extremities. Normal speech and coordination. No tremor SKIN: No rashes or open wounds. patch of slightly thickened dry skin left ramos. PSYCH: normal mood and affect Results Imaging Chest x-ray: report reviewed (No acute findings) and image reviewed E KG: report reviewed and image reviewed (13:08 EKG: regular narrow tachycardia, ST depression 2/3/aVF; repeat 13:36 sinus, ST changes resolved; repeat 16:50 NSR, no ST-T changes ,nl axis and intervals.) Labs 09/18/24 13:07 09/18/24 13:07 Labs: Laboratory Results - last 24 hr 09/18/24 09/18/24 09/18/24 13:07 14:28 16:15 WBC 8.26 RBC 4.90 Hgb 15.0 Hct 45.8 MCV 94 MCH 30.6 MCHC 32.8 RDW 12.4 Plt Count 312 MPV 10.6 Immature Gran % 0.1 Neutrophils % 55.7 Lymphocytes % 23.6 Monocytes % 9.3 Eosinophils % 9.7 Basophils % 1.6 Nucleated RBC % 0.0 Absolute Neutrophils 4.60 Absolute Lymphocytes 1.95 Absolute Monocytes 0.77 Absolute Eosinophils 0.80 H Absolute Basophils 0.13 D-Dimer 319 Sodium 146 H Potassium 3.2 L Chloride 108 H Carbon Dioxide 31.3 Anion Gap 6.7 BUN 10 Creatinine 0.8 Est GFR (CKD-EPI 2020) 98.48 Glucose 88 Calcium 8.9 Troponin I 35 96 H* 159 H* TSH 1.74 09/18/24 09/18/24 18:20 21:22 WBC RBC Hgb Hct MCV MCH MCHC RDW Plt Count MPV Immature Gran % Neutrophils % Lymphocytes % Monocytes % Eosinophils % Basophils % Nucleated RBC % Absolute Neutrophils Absolute Lymphocytes Absolute Monocytes Absolute Eosinophils Absolute Basophils D-Dimer Sodium Potassium Chloride Carbon Dioxide Anion Gap BUN Creatinine Est GFR (CKD-EPI 2020) Glucose Calcium Troponin I 194 H* 210 H* TSH Last Vital Signs Temp 37.1 C 09/18/24 13:04 Pulse 68 09/18/24 23:45 Resp 15 09/19/24 00:20 BP 99/56 L 09/18/24 23:45 Pulse Ox 98 09/19/24 00:20 Time Spent Time spent with Patient: 55-74 minutes Time was spent: preparing to see the patient(eg.review tests), obtaining and/or reviewing separately otained hiistory, ordering medications,tests, procedures, referring, communicating with other health care services manager, indepentently interpreting results, counseling the patient and care coordination
[2024-09-19 01:49] LABS: Lab Add On Test DONE
[2024-09-19 01:51] LABS: ESR 2 mm/hr (0-20)
[2024-09-19 01:59] LABS: C-Reactive Protein < 0.50 mg/dL (<or=0.5)
--- NOTE | 2024-09-19 02:29 | W.PC.ACHO ---
Registration Status: Primary Language: Preferred Language: ED Information & Data Chief Complaint Arrhythmia 09/18/24 13:20 Other Complaint SOB/SuddenOnset 09/18/24 13:04 Triage Note Pt has been experiencing 09/18/24 13:04 high heart rate since 08:30 this AM, consistently. Increases with activity, as high as 200. 150 at rest. dizzy and SOB when moving. Ni history of this. Denies CP. Has tried vagal maneuvers, no relief. No recent illnesses. Medical / Surgical History (Last Reviewed 09/19/24 @ 01:50 by Zac Gonzalez) History of shoulder dystocia in prior Nevus, atypical Osteoarthritis of right temporomandibular joint Fibrocystic breast changes of both breasts Temporal mandibular joint disorder Migraine headache without aura (Last Reviewed 09/19/24 @ 01:50 by Zac Gonzalez) tmj arthroscopy [place] teeth extractions Most Recent Vital Signs Temperature 37.1 C 09/18/24 13:04 Temperature Source Oral 09/18/24 13:04 Pulse 68 09/18/24 23:45 Pulse 69 09/19/24 00:20 Respiratory Rate 15 09/19/24 00:20 Blood Pressure 99/56 L 09/18/24 23:45 Blood Pressure Mean 66 09/18/24 23:45 Blood Pressure Position Sitting 09/18/24 13:04 Pulse Oximetry 98 09/19/24 00:20 Oxygen Delivery Method Room Air 09/18/24 13:04 Oxygen Flow Rate 0 09/18/24 13:04 Pain Level 0 09/18/24 15:04 Allergies No Known Allergies Allergy (Verified 09/18/24 13:34) IV IV Catheter Type [Right Saline Lock Antecubital] IV Catheter Gauge [Right 18 Antecubital] Diet Orders Category Date Time Status Regular/Normal [DIET] Nutrition 09/19/24 Breakfast Active Diagnostics 09/19/24 09/19/24 09/18/24 Range/Units 05:35 01:07 21:22 WBC (4.4-10.8) 10^3/uL RBC (3.93-5.22) 10^6/uL Hgb (11.2-15.7) g/dL Hct (36.0-46.0) % MCV (80-95) fL MCH (27.0-33.0) pg MCHC (32.0-36.0) % RDW (11.7-14.6) % Plt Count (130-400) 10^3/uL MPV (8.0-11.0) fL Immature Gran % % Neutrophils % % Lymphocytes % % Monocytes % % Eosinophils % % Basophils % % Nucleated RBC % (0.0-0.3) % Absolute Neutrophils (1.2-6.7) 10^3/uL Absolute Lymphocytes (1.2-3.4) 10^3/uL Absolute Monocytes (0.1-0.8) 10^3/uL Absolute Eosinophils (0.0-0.7) 10^3/uL Absolute Basophils (0.0-0.2) 10^3/uL ESR (0-20) mm/hr D-Dimer (<500) ng/mlFEU Sodium Pending (136-145) mmol/L Potassium Pending (3.5-5.1) mmol/L Chloride Pending (98-107) mmol/L Carbon Dioxide Pending (21.0-32.0) mmol/L Anion Gap Pending (3-11) mmol/L BUN Pending (7-18) mg/dL Creatinine Pending (0.55-1.02) mg/dL Est GFR (CKD-EPI 2020) Pending (mL/min/1.73m2) Glucose Pending (74-106) mg/dL Calcium Pending (8.5-10.1) mg/dL Magnesium Pending Troponin I Pending 210 H* (<or=51) ng/L C-Reactive Protein (<or=0.5) mg/dL TSH (0.36-3.74) uIU/mL Add-On Test Request DONE 09/18/24 09/18/24 09/18/24 Range/Units 18:26 18:20 16:15 WBC (4.4-10.8) 10^3/uL RBC (3.93-5.22) 10^6/uL Hgb (11.2-15.7) g/dL Hct (36.0-46.0) % MCV (80-95) fL MCH (27.0-33.0) pg MCHC (32.0-36.0) % RDW (11.7-14.6) % Plt Count (130-400) 10^3/uL MPV (8.0-11.0) fL Immature Gran % % Neutrophils % % Lymphocytes % % Monocytes % % Eosinophils % % Basophils % % Nucleated RBC % (0.0-0.3) % Absolute Neutrophils (1.2-6.7) 10^3/uL Absolute Lymphocytes (1.2-3.4) 10^3/uL Absolute Monocytes (0.1-0.8) 10^3/uL Absolute Eosinophils (0.0-0.7) 10^3/uL Absolute Basophils (0.0-0.2) 10^3/uL ESR (0-20) mm/hr D-Dimer (<500) ng/mlFEU Sodium (136-145) mmol/L Potassium (3.5-5.1) mmol/L Chloride (98-107) mmol/L Carbon Dioxide (21.0-32.0) mmol/L Anion Gap (3-11) mmol/L BUN (7-18) mg/dL Creatinine (0.55-1.02) mg/dL Est GFR (CKD-EPI 2020) (mL/min/1.73m2) Glucose (74-106) mg/dL Calcium (8.5-10.1) mg/dL Magnesium Troponin I 194 H* 159 H* (<or=51) ng/L C-Reactive Protein < 0.50 (<or=0.5) mg/dL TSH (0.36-3.74) uIU/mL Add-On Test Request 09/18/24 09/18/24 Range/Units 14:28 13:07 WBC 8.26 (4.4-10.8) 10^3/uL RBC 4.90 (3.93-5.22) 10^6/uL Hgb 15.0 (11.2-15.7) g/dL Hct 45.8 (36.0-46.0) % MCV 94 (80-95) fL MCH 30.6 (27.0-33.0) pg MCHC 32.8 (32.0-36.0) % RDW 12.4 (11.7-14.6) % Plt Count 312 (130-400) 10^3/uL MPV 10.6 (8.0-11.0) fL Immature Gran % 0.1 % Neutrophils % 55.7 % Lymphocytes % 23.6 % Monocytes % 9.3 % Eosinophils % 9.7 % Basophils % 1.6 % Nucleated RBC % 0.0 (0.0-0.3) % Absolute Neutrophils 4.60 (1.2-6.7) 10^3/uL Absolute Lymphocytes 1.95 (1.2-3.4) 10^3/uL Absolute Monocytes 0.77 (0.1-0.8) 10^3/uL Absolute Eosinophils 0.80 H (0.0-0.7) 10^3/uL Absolute Basophils 0.13 (0.0-0.2) 10^3/uL ESR 2 (0-20) mm/hr D-Dimer 319 (<500) ng/mlFEU Sodium 146 H (136-145) mmol/L Potassium 3.2 L (3.5-5.1) mmol/L Chloride 108 H (98-107) mmol/L Carbon Dioxide 31.3 (21.0-32.0) mmol/L Anion Gap 6.7 (3-11) mmol/L BUN 10 (7-18) mg/dL Creatinine 0.8 (0.55-1.02) mg/dL Est GFR (CKD-EPI 2020) 98.48 (mL/min/1.73m2) Glucose 88 (74-106) mg/dL Calcium 8.9 (8.5-10.1) mg/dL Magnesium Troponin I 96 H* 35 (<or=51) ng/L C-Reactive Protein (<or=0.5) mg/dL TSH 1.74 (0.36-3.74) uIU/mL Add-On Test Request [id number] Documentation POC Urine Test Start: 09/18/24 13:19 Freq: .Urine Test Status: Active Protocol: Activity Type Activity Date Activity User E-sign Co-sign Detail Recorded Client Recorded Date Recorded By Document 09/18/24 13:55 N.CLEEsdras [id number] 09/18/24 13:55 N.CLEC Intake and Output - 24 Hour Total 09/18/24 12:57 thru 09/18/24 13:04 Weight 61.9 kg Falls Risk Assessment History of Falls No History 09/18/24 13:12 Contributing Factors No Factors 09/18/24 13:12 Ambulatory Aids Independent 09/18/24 13:12 Tubes/Lines None 09/18/24 13:12 Gait Evaluation No gait disturbance 09/18/24 13:12 Cognition No cognitive impairment 09/18/24 13:12 Fall Total Score 0 09/18/24 13:12 Level of Risk Standard/Low Risk 09/18/24 13:12 Problems (Last Reviewed 09/19/24 @ 01:50 by Zac Gonzalez) Hypokalemia (Acute) DVT prophylaxis (Acute) Troponin level elevated (Acute) Atrial flutter (Acute) Tachycardia (Acute) Social anxiety disorder (Acute 05/22/16) v v v v v v v v v Sending and/or Receiving Nurses: Please use comment section below to note any information pertinent to the patient hand-off not included above. Information / Comments: No further questions. Report received from: Diego Bryan
[2024-09-19] MEDS: Escitalopram 20 MG TAB PO ×2 (03:21→19:53)
[2024-09-19 06:54] LABS: Anion Gap 7.1 mmol/L (3-11); BUN 11 mg/dL (7-18); CO2 27.9 mmol/L (21.0-32.0); CREATININE 0.7 mg/dL (0.55-1.02); Calcium 8.2 mg/dL (8.5-10.1); Chloride 109 mmol/L (98-107); Estimated GFR 115.59 (mL/min/1.73m2); Glucose 83 mg/dL (74-106); Magnesium 1.9 mg/dL (1.8-2.4); Potassium 3.6 mmol/L (3.5-5.1); Sodium 144 mmol/L (136-145)
[2024-09-19 07:04] LABS: Troponin I 233 ng/L (<or=51)
[2024-09-19] MEDS: Normal Saline Flush 10 ML SYR IVP ×3 (07:56→19:54)
[2024-09-19] MEDS: Potassium Chloride Liquid 20 MEQ PKT 40 MEQ PO (07:56)
--- NOTE | 2024-09-19 10:52 | INITIAL_ITS ---
Date of service: 09/19/24 Time of Service: 10:52 Care Management Initial Assmt Initial Assessment Reason for Hospitalization: New onset of Aflutter Functional Status/Living Situation Patient Presentation: Sujata was awake when CM met with her. She is pleasant and engages in conversation. 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 Sujata's cardiac status is being closely monitored and medically managed. She is planning to have a Cardiac Consult and ECHO tomorrow, denies concerns at this time. Town of Residence: [place] Resides with: Spouse (Brodie) Significant Other/Family: Local Natural Supports: Supportive family and friends. Employment Status: Employed ([employer]) Instrumental Activities of Daily Living (ADLs): Independent Medications Medication Management: No Issues/Barriers identified Advance Directives Advance Directives: Do you have an Advance Directive: N 04/04/22 11:[address] File [address] [employer]: N 04/04/22 11:46 Date Asked 09/18/24 09/18/24 13:02 AD Date Reviewed COLST On File at [facility] COLST Date Scanned Code Status Resuscitation Status Full Code Insurance Coverage/Financial Issues Insurance: ? Health Plans ([employer] ONLY!) Financial Issues: None identified Care Team Visit Care Team Role Provider Type Emma Hernandez MD Primary Care Provider [facility] [facility] [facility] [facility] STAFF PHYSICIAN David Duncan DO Emergency Provider [facility] STAFF PHYSICIAN Zac Gonzalez Admit Provider [facility] [employer] [facility] [facility] [facility] STAFF PHYSICIAN Attending Provider Discharge Potential Discharge Needs: Imaging/labs (ECHO) and Other (Cardiology consult) Anticipated Barriers to Discharge: None Identified Patient/Family Education Needs: Review discharge instructions, discuss Ask Me Three Transportation: Private vehicle Plan: Echo and cardiac consult are ordered for Friday. Anticipate, Sujata will discharge home via private vehicle with her when medically ready to discharge. Pt will follow up with her PCP and Cardiology, as recommended. No new [facility] services are indicated at this time. Letter for work will be provided, if needed. CM will follow. Social Determinants of Health Screening Social Determinants of Health last assessed: 09/19/24 Will the Patient Participate in the Screening?: Yes Do you worry about having a steady place to live?: no Problems where you live: no known problems In the past 12 months, have you had to go without electric, gas, oil or water in your home?: no Have you or anyone in your house had to go without enough food to eat?: no Has lack of transportation kept you from medical appointments or from doing things needed for daily living?: no Has anyone in your life made you feel unsafe or unsupported?: no How hard is it for you to pay for the very basics like food, housing, medical care, and heating? Would you say it is:: Not hard at all Do you want help finding or keeping work or a job?: I do not need or want help If for any reason you need help with day-to-day activities such as bathing, preparing meals, shopping, managing finances, etc., do you get the help you need?: I don?t need any help How often do you feel lonely or isolated from those around you?: Never Do you speak a language other than Italian at home?: No Does the patient want assistance with any of the above?: No PFSH All Active Problems (Updated 09/19/24 @ 02:04 by Zac Gonzalez) Hypokalemia (Acute) DVT prophylaxis (Acute) Troponin level elevated (Acute) Atrial flutter (Acute) Tachycardia (Acute) Social anxiety disorder (Acute 05/22/16) Managed with citalopram; prior trial of sertraline. Vitamin D deficiency (Acute) Medical History History of shoulder dystocia in prior Nevus, atypical s/p skin biopsy. 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 Sx improved. Migraine headache without aura Infrequent now since Tx for her TMJ . Surgical History [place] [facility] [place] extractions 2006 Family History Maternal Aunt Multiple sclerosis Paternal Aunt Breast cancer 30s Mother Fibrocystic breast changes of both breasts Maternal Grandmother Osteoporosis Breast cancer Father Hyperlipidemia Brother No problems noted. Brother No problems noted. Brother No problems noted. Son No problems noted. Daughter No problems noted. Paternal Grandfather Heart disease Other Diabetes Myocardial infarction Personal history of malignant neoplasm Social History (Updated 09/19/24 @ 01:51 by Zac Gonzalez) Smoking/Tobacco Use Status: Former Tobacco Use Quit Date: 09/08/13 Tobacco: How many years used: 12 Quit status: has quit before Second Hand Exposure: Yes Counseling given: provider counseling and support medications Smoking risk assessment performed?: Yes Alcohol Intake: current Alcohol Intake frequency: a few times a month Alcohol type: beer Drug use: Never Substance use type: does not use Adopted: No Caregiver/Support person: No Foster care: No Household members: spouse, family and children Housing: house Number of Children: 3 Communication Needs: None Education Level: college 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 Pets and animals: Yes Pets and animals: cat(s) and dog(s) Sexually active: Yes Do you think of yourself as: straight/heterosexual Current gender identity: female What is your relationship status?: How often do you attend latter-day or religion services?: 4 or more times per year Do you belong to any clubs or organized social groups?: no Panel score (0-1 are the most socially isolated patients): 2 What type of physical activity do you participate in: other Details: enjoys camping, hiking Tania/Hoahaoism: Methodist Seatbelt use: always Helmet use: Yes Helmet use: always Drive intox or ride w/intox driver retraining instructor: No Do you feel safe in your relationship?: Yes History History 3 Para 3 Hx # Term Pregnancies 3 Multiple births 0 Hx # Pregnancies 0 Ectopic pregnancies 0 AB induced 0 Hx Number of Living Children 3 AB spontaneous 0 Past Pregnancies Del. Date GA/Weeks # Preg Succ Route Wgt Sex Labor Lgth Anesth esia Location Prov Compl 01/06/15 41 No Yes vaginal 5.103 kg Male Rianna Gonzales 07/20/18 41 No Yes vaginal 4564.273 g Female 5 hrs. 8 min. [facility] bennett cnm induced 04/06/23 39 No Yes vaginal 3639.994 g Female 3.5hrs AO C Delivery Date: 01/06/15 Last Updated by: Jennifer Han IOL for post dates, episiotomy, mild shoulder dystocia, 3rd degree Delivery Date: 07/20/18 Last Updated by: Jennifer Han IOL for postdates, mild shoulder dystocia, PPH, no transfusion. Delivery Date: 04/06/23 Last Updated by: Deana Langford MD [facility] due to hx shoulder dystocia
[2024-09-19 13:48] LABS: Troponin I 129 ng/L (<or=51)
[2024-09-19] MEDS: dilTIAZem 30 MG TAB PO ×2 (15:12→19:53)
[2024-09-20] VITALS (9 sets, daily range): BP systolic 78–105; BP diastolic 38–59; PULSE 72–134; RESP 16–22; TEMP 36.4–37.4; O2SAT 95–98
[2024-09-20] MEDS: Ondansetron 4 MG/2 ML VIAL IVP ×2 (04:28→11:45)
[2024-09-20] MEDS: Normal Saline Flush 10 ML SYR IVP ×3 (04:28→11:45)
[2024-09-20] MEDS: Normal Saline 500 ML IV (08:16)
--- NOTE | 2024-09-20 08:55 | PDOC.CMPRO ---
Date of service: 09/20/24 Time of Service: 08:55 Care Management Progress Note Progress Note Text Progress Note Text: Sujata was sitting up in bed when CM met with her. She shared that she had a rough night and was nauseous several times. She feels better and is planning on discharging home with a 30 day satellite project site monitor and cardiology follow up when she is medically ready for discharge. Sujata denies concerns at this time. CM will continue to follow. Discharge Potential Discharge Needs: PCP F/U Appt and Other (Cardiology) Anticipated Barriers to Discharge: Medical Status Patient/Family Education Needs: Review discharge instructions, discuss Ask Me Three Transportation: Private vehicle Plan: Anticipate, Sujata will discharge home with a satellite project site monitor when medically ready to discharge. Her will provide transportation. Pt will follow up with her PCP and Cardiology, as recommended. No new [facility] services are indicated at this time. Letter for work will be provided, if needed. CM will follow. Social Determinants of Health Screening Social Determinants of Health last assessed: 09/20/24 Will the Patient Participate in the Screening?: Yes Do you worry about having a steady place to live?: no Problems where you live: no known problems In the past 12 months, have you had to go without electric, gas, oil or water in your home?: no Have you or anyone in your house had to go without enough food to eat?: no Has lack of transportation kept you from medical appointments or from doing things needed for daily living?: no Has anyone in your life made you feel unsafe or unsupported?: no How hard is it for you to pay for the very basics like food, housing, medical care, and heating? Would you say it is:: Not hard at all Do you want help finding or keeping work or a job?: I do not need or want help If for any reason you need help with day-to-day activities such as bathing, preparing meals, shopping, managing finances, etc., do you get the help you need?: I don?t need any help How often do you feel lonely or isolated from those around you?: Never Do you speak a language other than Divehi at home?: No Does the patient want assistance with any of the above?: No
[2024-09-20 12:15] LABS: Abs Immature Grans 0.02 10^3/uL (0.0-0.06); Absolute Basophil Count 0.03 10^3/uL (0.0-0.2); Absolute Eosinophil Count 0.12 10^3/uL (0.0-0.7); Absolute Lymphocyte Count 0.18 10^3/uL (1.2-3.4); Absolute Neutrophil Count 7.08 10^3/uL (1.2-6.7); Basophils % 0.4 %; Eosinophils % 1.6 %; HCT 41.3 % (36.0-46.0); HGB 13.6 g/dL (11.2-15.7); Immature Grans % 0.3 %; Lymphocytes % 2.3 %; MCHC 32.9 % (32.0-36.0); MCV 94 fL (80-95); MPV 9.9 fL (8.0-11.0); Monocytes % 3.9 %; Neutrophils % 91.5 %; Platelet Count 212 10^3/uL (130-400); RBC 4.39 10^6/uL (3.93-5.22); RDW 12.2 % (11.7-14.6); RDW-SD 42.5 fL; WBC 7.73 10^3/uL (4.4-10.8)
[2024-09-20 12:34] LABS: ALT 29 U/L (14-59); AST 19 U/L (15-37); Albumin 3.4 g/dL (3.4-5.0); Alkaline Phosphatase 60 U/L (46-116); Anion Gap 8.5 mmol/L (3-11); BUN 17 mg/dL (7-18); CO2 26.5 mmol/L (21.0-32.0); CREATININE 0.8 mg/dL (0.55-1.02); Calcium 8.6 mg/dL (8.5-10.1); Chloride 108 mmol/L (98-107); Estimated GFR 98.48 (mL/min/1.73m2); Glucose 109 mg/dL (74-106); Magnesium 1.9 mg/dL (1.8-2.4); Potassium 3.6 mmol/L (3.5-5.1); Sodium 143 mmol/L (136-145); Total Protein 6.5 g/dL (6.4-8.2)
--- NOTE | 2024-09-20 12:34 | PHA.REVIEW2 ---
Pharmacy Admission Review Admission Clinical Review Admission Pharmacy Review: Hypokalemia (Acute) DVT prophylaxis (Acute) Troponin level elevated (Acute) Atrial flutter (Acute) Tachycardia (Acute) Social anxiety disorder (Acute 05/22/16) No Known Allergies Allergy (Verified 09/18/24 13:34) Resuscitation Status Full Code Height 5 ft 9 in Weight 57.606 kg Pharmacy Admission Review Renal Dosing Renal Dosing: BUN 11 mg/dL (7-18) 09/19/24 05:58 Creatinine 0.7 mg/dL (0.55-1.02) 09/19/24 05:58 Medications needing adjustments: Reviewed (CrCl 102.01 mL/min) List of meds needing interventions: Current medications are okay Anticoagulation Anticoagulation: Hgb 13.6 g/dL (11.2-15.7) 09/20/24 12:10 Hct 41.3 % (36.0-46.0) 09/20/24 12:10 Plt Count 212 10^3/uL (130-400) 09/20/24 12:10 Creatinine 0.7 mg/dL (0.55-1.02) 09/19/24 05:58 DVT Prophylaxis: Reviewed (Low risk, none needed per H+P) Relevant Labs Relevant Labs: ESR 2 mm/hr (0-20) 09/18/24 13:07 Sodium 144 mmol/L (136-145) 09/19/24 05:58 Potassium 3.6 mmol/L (3.5-5.1) 09/19/24 05:58 Chloride 109 mmol/L (98-107) H 09/19/24 05:58 Magnesium 1.9 mg/dL (1.8-2.4) 09/19/24 05:58 C-Reactive Protein < 0.50 mg/dL (<or=0.5) 09/18/24 18:26 Electrolytes, C-Reactive P, ESR: Reviewed Cardiac Review Cardiac Review: Troponin I 129 ng/L (<or=51) H* 09/19/24 12:58 Blood Pressure 90/48 1210 Blood Pressure 92/40 0946 Blood Pressure 86/38 0941 Blood Pressure 78/48 0807 Blood Pressure 82/46 0736 Blood Pressure 99/59 0435 Blood Pressure 105/59 0225 BP, HR, EF%: Reviewed (HR WNL, troponin decreased from 233) List meds needing interventions: Has order for diltiazem 30mg TID. Per nurse patient reports that their BP runs low normally, has been asymptomatic today. QTc Review QTc: Reviewed (414 from 09/18/24) IV to PO Switch IV Medications: Reviewed (ondansetron) Home Meds Home Med List reviewed: Reviewed Relevent Home Meds Not ordered & why?: ibuprofen (PRN) Current Meds Current Medication Order Review: Intervened Comments: Changed IV ED access
--- NOTE | 2024-09-20 13:45 | RT.EKG_ITS ---
APPROVED REPORT Exam: Resting ECG Reason for Exam: Tachycardia/shortness of breath Patient Location: I HR:82 bpm ECG Measurements Heart Rate 82 AXIS NH 158 P 80 QRSd 86 QRS 88 QT 397 T -69 QTc 464 Conclusion Sinus rhythm...normal P axis, V-rate 50- 99 Probable left atrial enlargement...P >50mS, <-0.10mV V1 Nonspecific repol abnormality, anterior leads...ST dep, T neg, V2-V4
[2024-09-20] MEDS: Normal Saline 1,000 ML 1000 ML IV (14:44)
--- NOTE | 2024-09-20 17:07 | DSE_ITS ---
Date of service: 09/20/24 Time of Service: 17:07 DS: Diagnosis Discharge Diagnosis (1) Atrial flutter: Status: Acute (2) Troponin level elevated: Status: Resolved (3) Social anxiety disorder: (4) Hypokalemia: Status: Resolved Discharge Plan Disposition Patient Disposition: Home Condition: Stable Discharge Details Reason For Visit: A flutter Admit Date/Time: 09/19/24 01:15 Admit Provider: Zac Gonzalez Attending Provider: Zac Gonzalez Primary Care Provider: Emma Hernandez Hospital Course Hospital Course: Sujata, a 34-year-old female, who presented to the emergency department with complaints of new onset rapid heart rate, shortness of breath, and dizziness with exertion. The symptoms began earlier in the day while she was getting her children ready to leave. She reported feeling lightheaded and noted an elevated heart rate. She denied associated fever, chills, congestion, sore throat, cough, chest pain, nausea, vomiting, diaphoresis, or changes in bowel or bladder function. There was no recent change in medications or caffeine intake. Sujata has a history of anxiety, for which she takes escitalopram, and is a former smoker. Physical Examination: On examination, Sujata was alert and oriented and appeared to be in no acute distress. Her heart rate was tachycardic with a regular rhythm. Pulses were intact bilaterally to the upper extremities. No jugular venous distention or pedal edema was noted. Her work of breathing was easy, and lung sounds were clear bilaterally. Her abdomen was soft, non-distended, and non-tender to palpation. Diagnostics and Laboratory Results: * Initial EKG showed sinus tachycardia with a rate of 141 and normal intervals. * A repeat EKG after the administration of diltiazem showed normal sinus rhythm at a rate of 84, with a prolonged MS interval of 221 ms and a QTc within normal limits. ST depressions, which were likely rate-related, had resolved. * Chest x-ray was reassuring, with no obvious cardiomegaly or infiltrates. * CBC, CMP, and TSH were all within normal limits, except for mild hypokalemia (potassium 3.2). * Troponin levels initially elevated from 35 to 96, likely indicating rate- related demand ischemia. Treatment and Response: While in the emergency department, Sujata was administered 20 mg of diltiazem IV, which resulted in full improvement of her symptoms and resolution of the sinus tachycardia. Oral potassium was given to address the mild hypokalemia. Consultations: The case was discussed with Zahida Sanchez APRN in cardiology, who reviewed the patient?s presentation, labs, and response to diltiazem. She recommended the use of 30 mg of diltiazem extended-release (IR) up to 4 times daily as needed, close follow-up with the primary care physician for the Zio patch, and cardiology follow-up as necessary. Troponins were trending upward, reaching a level of 210, which was likely attributed to rate-related demand ischemia. [facility] was consulted regarding the rising troponins and recommended admission for further monitoring, including an echocardiogram and continued troponin trending. Thyroid function was normal, and a D-dimer was within normal limits. The patient was placed on observation status on the medical floor for continued monitoring. During her hospitalization, Sujata experienced some episodes of tachycardia and lightheadedness. She was noted to be orthostatic. One liter of 0.9% normal saline was administered, which resulted in significant improvement of her symptoms. She became no longer lightheaded, and her heart rate decreased to the 80s with normal sinus rhythm. An echocardiogram was performed, revealing an ejection fraction of 55-60%, with no segmental wall motion abnormalities and no significant valvular abnormalities. Disposition: The patient was stable and showed significant improvement following hydration. She was discharged with follow-up instructions and recommendations for cardiology and primary care visits as previously outlined. Patient was discharged with a cardiac event monitor in place. Follow-Up Instructions: * Follow up with cardiology as scheduled. The patient was informed of the plan and has agreed to it. Home Meds and New Rx's Prescriptions: No Action escitalopram oxalate 20 mg tablet 20 mg PO QHS ibuprofen 600 mg tablet 600 mg PO Q8H PRNQty: 60 1RF Discharge Instructions Instructions: Atrial Flutter (DC) Additional Instructions: Avoid any new caffeine, nicotine products, [id number] medications, alcohol consumption, or illicit drug use. Return to emergency department if you develop chest pains, dizziness, difficulty breathing, or if you are concerned Stand Alone Forms: Nursing Discharge Form Referrals: Augustina Zapien MD [ [facility] STAFF PHYSICIAN] - (Your information has been faxed to the office. They should call for an appointment, but you may call if you don't hear. ) Emma Hernandez MD [Primary Care Provider] - (Please call the office to set up a hospital follow up within 7-10 days) Activity:: Activity as Tolerated Equipment/Supplies:: Event monitor Diet:: As Tolerated Discharge Orders Discharge Orders: Discharge Order (Routine); Ordered 09/20/24 Ordered By: Myriam Tijerina Other Ambulatory Orders: Cardiac Event Recorder (Routine) Timeframe: 20240920 Facility: [facility] - Location: Respiratory Therapy Ordered By: Myriam Tijerina Discharge Data Discharge Date/Time-TO BE ENTERED AT DEPARTURE: 09/20/24 17:45 DS: Summary Time Spent with Patient providing and/or coordinating discharge services: Greater than 30 minutes Status at Discharge Functional status at discharge: independent ambulation Overall status at discharge: patient is back to baseline Mental Status: mental status grossly normal Speech and Movement: speech and movement normal Mood: congruent mood Affect: normal affect Quality:SDOH Health Related Social Needs: Health related social needs education (Z55.6) Exam Narrative Exam Narrative: GEN: Alert and oriented x 4, pleasant and cooperative, gives linear history. No acute distress at rest. HEENT: Head atraumatic. Conjunctiva clear, no icterus. PEERL, EOMI. no rhinorrhea. MMM, OP benign. Neck is supple with no masses or lymphadenopathy, normal thyroid, trachea midline LUNGS: CTAB with normal effort CV: RRR with no murmurs, gallops, or rubs. ABD: active bowel sounds, soft, nontender and nondistended. No masses. EXT: no cyanosis, clubbing, or edema MSK: No joint redness or swelling NEURO: CN 2-12 grossly intact. Normal movement of 4 extremities. Normal speech and coordination. No tremor SKIN: No rashes or open wounds. patch of slightly thickened dry skin left ramos. PSYCH: normal mood and affect Psych Mental Status: mental status grossly normal Speech and Movement: speech and movement normal Mood: congruent mood Affect: normal affect DS: Data Vitals/I&O Vitals and I&O: Vital Signs Temperature 37.3 C 09/20/24 14:57 Temperature Source Temporal Artery Scan 09/20/24 14:57 Pulse 79 09/20/24 14:57 Pulse Rhythm Regular 09/19/24 02:37 Pulse 62 01/12/25 02:20 Respiratory Rate 16 09/20/24 14:57 Respiratory Effort Normal, Non-Labored 09/19/24 02:37 Respiratory Depth Normal 09/19/24 02:37 Respiratory Pattern Normal 09/19/24 02:37 Blood Pressure 86/42 L 09/20/24 14:57 Blood Pressure Mean 59 09/19/24 02:01 Blood Pressure Position Sitting 09/18/24 13:04 Pulse Oximetry 98 09/20/24 14:57 Oxygen Delivery Method Room Air 09/20/24 14:57 Oxygen Flow Rate 0 09/20/24 14:57 Pain Level 0 09/19/24 19:36 Comment Charge nurse and Primary nurse notified. 09/20/24 09:46 Intake & Output 09/19/24 09/20/24 09/20/24 23:59 11:59 23:59 Intake Total 360 / 360 463.333 / 3500.842 5339 / 1463.333 Output Total 1050 / 2750 750 / 750 Balance -690 / -2390 -286.667 / 847.742 7892 / 713.333 Intake: IV 283.333 / 2566.477 8852 / 1283.333 Oral 360 / 360 180 / 180 Output: Urine 1050 / 2750 750 / 750 Other: Urine Color [place] Urine Appearance Clear Clear Urine Odor Normal None Comment pt states she has begun her period per pt voided x1 Data Completed and Pending Labs on day of discharge: Labs from last 24 hours 09/20/24 12:10 WBC 7.73 RBC 4.39 Hgb 13.6 Hct 41.3 MCV 94 MCH 31.0 MCHC 32.9 RDW 12.2 Plt Count 212 MPV 9.9 Immature Gran % 0.3 Neutrophils % 91.5 Lymphocytes % 2.3 Monocytes % 3.9 Eosinophils % 1.6 Basophils % 0.4 Nucleated RBC % 0.0 Absolute Neutrophils 7.08 H Absolute Lymphocytes 0.18 L Absolute Monocytes 0.30 Absolute Eosinophils 0.12 Absolute Basophils 0.03 Sodium 143 Potassium 3.6 Chloride 108 H Carbon Dioxide 26.5 Anion Gap 8.5 BUN 17 Creatinine 0.8 Est GFR (CKD-EPI 2020) 98.48 Glucose 109 H Calcium 8.6 Magnesium 1.9 Total Bilirubin 0.80 AST 19 ALT 29 Alkaline Phosphatase 60 Total Protein 6.5 Albumin 3.4 PFSH All Active Problems (Updated 09/21/24 @ 00:08 by RAMON MOSQUERA) Atrial flutter (Acute) Vitamin D deficiency (Acute) Medical History History of shoulder dystocia in prior Nevus, atypical s/p skin biopsy. 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 Sx improved. Migraine headache without aura Infrequent now since Tx for her TMJ . Surgical History tmj arthroscopy 03/2016 [facility] [place]. [place] teeth extractions 2006 Family History Maternal Aunt Multiple sclerosis Paternal Aunt Breast cancer 30s Mother Fibrocystic breast changes of both breasts Maternal Grandmother Osteoporosis Breast cancer Father Hyperlipidemia Brother No problems noted. Brother No problems noted. Brother No problems noted. Son No problems noted. Daughter No problems noted. Paternal Grandfather Heart disease Other Diabetes Myocardial infarction Personal history of malignant neoplasm Social History (Updated 09/19/24 @ 01:51 by Zac Gonzalez) Smoking/Tobacco Use Status: Former Tobacco Use Quit Date: 09/08/13 Tobacco: How many years used: 12 Quit status: has quit before Second Hand Exposure: Yes Counseling given: provider counseling and support medications Smoking risk assessment performed?: Yes Alcohol Intake: current Alcohol Intake frequency: a few times a month Alcohol type: beer Drug use: Never Substance use type: does not use Adopted: No Caregiver/Support person: No Foster care: No Household members: spouse, family and children Housing: house Number of Children: 3 Communication Needs: None Education Level: college 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 Pets and animals: Yes Pets and animals: cat(s) and dog(s) Sexually active: Yes Do you think of yourself as: straight/heterosexual Current gender identity: female What is your relationship status?: How often do you attend catholic or mormon services?: 4 or more times per year Do you belong to any clubs or organized social groups?: no Panel score (0-1 are the most socially isolated patients): 2 What type of physical activity do you participate in: other Details: enjoys camping, hiking Tania/Presybeterian: Muslim Seatbelt use: always Helmet use: Yes Helmet use: always Drive intox or ride w/intox truck driver: No Do you feel safe in your relationship?: Yes History History 3 Para 3 Hx # Term Pregnancies 3 Multiple births 0 Hx # Pregnancies 0 Ectopic pregnancies 0 AB induced 0 Hx Number of Living Children 3 AB spontaneous 0 Past Pregnancies Del. Date GA/Weeks # Preg Succ Route Wgt Sex Labor Lgth Anesth esia Location Prov Complic 01/06/15 41 No Yes vaginal 5.103 kg Male Antoinette Gonzales'Dominguez 07/20/18 41 No Yes vaginal 4564.273 g Female 5 hrs. 8 min. [facility]nett cnm induced 04/06/23 39 No Yes vaginal 3639.994 g Female 3.5hrs AO C Delivery Date: 01/06/15 Last Updated by: Jennifer Han IOL for post dates, episiotomy, mild shoulder dystocia, 3rd degree Delivery Date: 07/20/18 Last Updated by: Jennifer Han IOL for postdates, mild shoulder dystocia, PPH, no transfusion. Delivery Date: 04/06/23 Last Updated by: Deana Langford MD Brittani IND due to hx shoulder dystocia Time Spent with Patient Time Spent with Patient: 45-69 minutes Time was spent: preparing to see the patient(eg.review tests), ordering medicat ions,tests, procedures, referring, communicating with other health palliative care specialist, indepentently interpreting results, counseling the patient and care coordination
== END 2024-09-20 17:45 | disposition home or self-care (01) ==
LOC: ER 09-19 01:26 → MS 09-20 10:42
PROVIDERS: Nurse Practitioner Family; Admitting Provider Family Medicine; Emergency Provider Student in an Organized Health Care Education/Training Program; PCP Family Medicine; Visit Provider Family Medicine
DX: I48.92 Unspecified atrial flutter (principal); R00.0 Tachycardia, unspecified; R42 Dizziness and giddiness; R06.09 Other forms of dyspnea; F40.10 Social phobia, unspecified; E87.6 Hypokalemia; R74.8 Abnormal levels of other serum enzymes; E55.9 Vitamin D deficiency, unspecified; Z79.899 Other long term (current) drug therapy; G43.009 Migraine without aura, not intractable, without status migrainosus
CPT/HCPCS: 00123; 36415; 80048; 80053; 81025; 85652; 93005; 93270; 96361; 96374; 96375; 96376; 99285; 71046; 83735; 84443; 84484; 85025; 85379; 86140; 93010; 93306; 99223; 99239; G0378; J2405

== ENCOUNTER 2024-10-01 12:37 | Outpatient (CLI) | payer OTHER, SELFPAY ==
--- NOTE | 2024-10-01 12:30 | RT.EKG_ITS ---
APPROVED REPORT Exam: Resting ECG Reason for Exam: baseline Patient Location: O HR:75 bpm ECG Measurements Heart Rate 75 AXIS RI 145 P 72 QRSd 78 QRS 84 QT 387 T -13 QTc 433 Conclusion Sinus rhythm...normal P axis, V-rate 50- 99 RSR' in V1 or V2, probably normal variant...small R' only Nondiagnostic ST-T abnormalities
== END 2024-10-01 12:38 | disposition home or self-care (01) ==
LOC: DI.CARD 12:38
PROVIDERS: PCP Family Medicine; Visit Provider Internal Medicine Cardiovascular Disease
DX: I48.92 Unspecified atrial flutter (principal)
CPT/HCPCS: 93010

== ENCOUNTER 2024-11-30 07:30 | Outpatient (CLI) | payer OTHER, SELFPAY ==
--- NOTE | 2024-11-30 08:25 | W.CARDEVENT ---
Date of service: 11/30/24 Time of Service: 08:25 Cardiac Event Recorder Referring Provider:: Emma Hernandez Indications:: Tachycardia Cardiac Event Note: This is a cardiac event monitor. Patient was monitored for 28 days and 9 hours. Rhythm throughout was sinus. Average heart rate was 88. Minimum heart rate was 46. Maximum was 144. There were no significant ventricular dysrhythmias. There were very rare isolated atrial premature beats. Symptoms were reported. These correlated with sinus rhythm in the 80s, as well as sinus tachycardia to 119
== END 2024-11-30 07:31 | disposition home or self-care (01) ==
LOC: CARDOPNVT 07:30
PROVIDERS: PCP Family Medicine; Visit Provider Internal Medicine Cardiovascular Disease
DX: R00.0 Tachycardia, unspecified
CPT/HCPCS: 93272

== ENCOUNTER 2024-12-08 09:57 | Outpatient (CLI) | payer OTHER, SELFPAY ==
--- NOTE | 2024-12-08 09:45 | RT.EKG_ITS ---
APPROVED REPORT Exam: Resting ECG Reason for Exam: SVT Patient Location: O HR:76 bpm ECG Measurements Heart Rate 76 AXIS AL 155 P 83 QRSd 69 QRS 89 QT 358 T -47 QTc 403 Conclusion Sinus rhythm...normal P axis, V-rate 50- 99
== END 2024-12-08 09:58 | disposition home or self-care (01) ==
LOC: DI.CARD 09:57
PROVIDERS: PCP Family Medicine; Visit Provider Internal Medicine Cardiovascular Disease
DX: I47.10 Supraventricular tachycardia, unspecified (principal)
CPT/HCPCS: 93010

== ENCOUNTER 2025-05-11 08:54 | Outpatient (CLI) | payer OTHER, SELFPAY ==
--- NOTE | 2025-05-11 08:45 | RT.EKG_ITS ---
APPROVED REPORT Exam: Resting ECG Reason for Exam: SVT Patient Location: O HR:66 bpm ECG Measurements Heart Rate 66 AXIS MN 152 P 77 QRSd 96 QRS 84 QT 400 T -53 QTc 420 Conclusion Sinus rhythm...normal P axis, V-rate 50- 99
== END 2025-05-11 08:55 | disposition home or self-care (01) ==
LOC: DI.CARD 08:55
PROVIDERS: PCP Family Medicine; Visit Provider Internal Medicine Cardiovascular Disease
DX: I47.10 Supraventricular tachycardia, unspecified (principal)
CPT/HCPCS: 93010